=== PATIENT | female | born 1955 | race Caucasian/White ===

== ENCOUNTER 2018-06-18 09:18 | Inpatient (IN) ==
[2018-06-18 10:55] LABS: Baso % (Auto) 0.2 % (0.0-2.0); Eos % (Auto) 0.1 % (0.0-4.0); Hematocrit 39.4 % (35.0-46.0); Hemoglobin 13.2 gm/dL (11.6-15.3); Lymph # (Auto) 3.2 th/mm3 (1.0-4.8); Lymph % (Auto) 30.7 % (9.0-44.0); Mean Corpuscular HGB Conc 33.5 % (32.0-36.0); Mean Corpuscular Hemoglobin 28.9 pg (27.0-34.0); Mean Corpuscular Volume 86.3 fL (80.0-100.0); Mean Platelet Volume 7.1 fL (7.0-11.0); Mono # (Auto) 1.3 th/mm3 (0.0-0.9); Mono % (Auto) 12.1 % (0.0-8.0); Neut # (Auto) 5.9 th/mm3 (1.8-7.7); Neut % (Auto) 56.9 % (16.0-70.0); Platelet Count 238 th/mm3 (150-450); Red Blood Count 4.57 mil/mm3 (4.00-5.30); Red Cell Distribution Width 13.2 % (11.6-17.2); White Blood Count 10.4 th/mm3 (4.0-11.0)
[2018-06-18 11:11] LABS: Bacteria,Urine Rare /hpf; Bilirubin,Urine Negative (Negative); Clarity,Urine Cloudy (Clear); Color,Urine Amber (Yellw/Straw); Glucose,Urine (UA) 50 mg/dL (Negative); Leukocyte Esterase,Urine Negative (Negative); Mucus,Urine Few /lpf (Occasional); Nitrite,Urine Negative (Negative); Specific Gravity,Urine 1.031 (1.002-1.035); Squamous Epithelial Cell,Urine 8 /hpf (0-5); Urobilinogen,Urine 4 or Greater mg/dL (Less than 2)
[2018-06-18 11:12] LABS: Albumin 2.7 g/dL (3.4-5.0); Anion Gap 11 meq/L (5-15); Aspartate Aminotransferase 31 U/L (15-37); Blood Urea Nitrogen 23 mg/dL (7-18); Calcium 8.5 mg/dL (8.5-10.1); Carbon Dioxide 25.6 meq/L (21.0-32.0); Chloride 100 meq/L (98-107); Glomerular Filtration Rate 85 mL/min (>89); Glucose,Random 104 mg/dL (74-106); Lipase 65 U/L (73-393); Potassium 3.4 meq/L (3.5-5.1); Sodium 137 meq/L (136-145)
[2018-06-18 11:13] LABS: Alanine Aminotransferase 60 U/L (10-53)
[2018-06-18 11:15] LABS: Alkaline Phosphatase 118 U/L (45-117); Total Protein 7.8 g/dL (6.4-8.2)
--- NOTE | 2018-06-18 11:29 | ED ---
HPI General Chief Complaint: Abdominal Pain Stated Complaint: right side pain Time Seen by Provider: 06/18/18 10:08 Source: patient Mode of arrival: ambulatory Limitations: no limitations History of Present Illness HPI narrative: The patient is 62 years old. She denies a past medical history however does report history of recurrent urinary tract infections. Patient reports a history of follow-up with urogynecology and urology. She reports [address] scan was obtained due to chronic abdominal pain. The abdominal pain is generalized. She reports vomiting. She was seen here about a week ago by the undersigned. At that time her main priority was being able to work and she was discharged home with pain medication and antiemetics. This was after long discussion which included recent workups and evaluations not limited to urogynecology and outpatient imaging with blood work all of which revealed no acute injury. She returns today with severe pain is noted. She was unable to tolerate Percocet due to nausea and vomiting. Decreased appetite is reported. Bowel movements have been normal. MD complaint: Reports abdominal pain and flank pain Onset (ago): hour(s) Pain Consistency: constant Severity: severe Quality: Reports stabbing Relieving factors: nothing and medication (Pain medication cause vomiting) Exacerbating factors: eating, vomiting and movement Associated symptoms: Reports nausea and vomiting Related Data Home Medications Medication Instructions Recorded Confirmed No Known Home Medications 06/18/18 06/18/18 Allergies Allergy/AdvReac Type Severity Reaction Status Date / Time acetaminophen AdvReac Mild NAUSEA Verified 06/10/18 13:34 hydrocodone AdvReac Mild NAUSEA Verified 06/10/18 13:34 Review of Systems ROS: all other systems reviewed are negative [facility] Medical History Medical History UTI (urinary tract infection) (Acute) Herpes (Acute) History of hysterectomy (Acute) Surgical History Surgical History History of bladder surgery (Acute) Social History Social History Substance History: No History of Abuse Smoking Status: Former smoker How Often Do You Have a Drink Containing Alcohol: Never Recent Travel in [facility] within the Last 8 Weeks: No Recent Out of Country Travel within the Last 8 Weeks: No Immunization History Tetanus Immunization: Unsure Hx Influenza Vaccine This Season: No Exam Narrative Exam Narrative: GENERAL: 62-year-old female mild distress secondary to pain SKIN: Focused skin assessment warm/dry. HEAD: Atraumatic. Normocephalic. EYES: Pupils equal and round. No scleral icterus. No injection or drainage. ENT: No nasal bleeding or discharge. Mucous membranes pink and moist. NECK: Trachea midline. No JVD. CARDIOVASCULAR: Regular rate and rhythm. No murmur appreciated. RESPIRATORY: No accessory muscle use. Clear to auscultation. Breath sounds equal bilaterally. GASTROINTESTINAL: Soft. Nonspecific diffuse tenderness. MUSCULOSKELETAL: No obvious deformities. No clubbing. No cyanosis. No edema. NEUROLOGICAL: Awake and alert. No obvious cranial nerve deficits. Motor grossly within normal limits. Normal speech. PSYCHIATRIC: Appropriate mood and affect; insight and judgment normal. Course Initial Documented Vital Signs Temperature 97.9 F 06/18/18 09:40 Pulse Rate 89 06/18/18 09:40 Respiratory Rate 17 06/18/18 09:40 Blood Pressure 133/63 06/18/18 09:40 Pulse Oximetry 96 06/18/18 09:40 Last Documented Vital Signs Temperature 97.9 F 06/18/18 09:40 Pulse Rate 91 H 06/18/18 13:43 Respiratory Rate 16 06/18/18 13:43 Blood Pressure 145/65 H 06/18/18 13:43 Pulse Oximetry 96 06/18/18 13:43 Critical Care Time Critical Care Time: Yes Total Critical Care Time: 45 Attestation: Aggregate critical care time was 45 minutes. Time to perform other separately billable procedures was not included in the critical care time. My time did not include minutes spent treating any other patients simultaneously or on activities that did not directly contribute to the patient's treatment. The services I provided to this patient were to treat and/or prevent clinically significant deterioration that could result in: Intractable pain, disability, sepsis I provided critical care services requiring my management, as noted below: Chart data review, documentation time, medication orders and management, vital sign assessments/reviewing monitor data, ordering and reviewing lab tests, ordering and interpreting/reviewing x-rays and diagnostic studies, care of the patient and discussion of the patient with the admitting physicians. Medical Decision Making MDM Narrative Medical decision making narrative: Patient has required 3 doses of IV hydromorphone here for pain control. Workup today reveals a density in the right lung base concerning for pneumonia. There is a nonspecific pelvic density on CT. The patient reports having undergone hysterectomy with oophorectomy. Antibiotics started, Rocephin azithromycin. Blood cultures ordered. Admission for intractable pain and vomiting. Discussed with Dr. Arriaga for the [facility] Medical Screen Exam Complete: Yes Emergency Medical Condition: Yes Differential Diagnosis Differential Diagnosis: Constipation, Gastritis, Acute Cholecystitis, Biliary Colic, Pancreatitis, DUARTE, Hepatitis, Bowel Obstruction, Cystitis, Mesenteric Ischemia, AAA, Appendicitis, Renal Stone/Hydronephrosis, GERD, perforated viscous Medical Records Medical records reviewed: Yes I reviewed the patient's medical records. Lab Data Lab results reviewed: Yes I reviewed the patient's lab results. Lab results narrative: LFTs are unremarkable Urinalysis reveals trace hematuria Result diagrams: 06/18/18 10:25 06/18/18 10:25 Lab Results 06/18/18 06/18/18 06/18/18 Range/Units 10:25 10:25 10:30 WBC 10.4 (4.0-11.0) th/mm3 RBC 4.57 (4.00-5.30) mil/mm3 Hgb 13.2 (11.6-15.3) gm/dL Hct 39.4 (35.0-46.0) % MCV 86.3 (80.0-100.0) fL MCH 28.9 (27.0-34.0) pg MCHC 33.5 (32.0-36.0) % RDW 13.2 (11.6-17.2) % Plt Count 238 (150-450) th/mm3 MPV 7.1 (7.0-11.0) fL Neut % (Auto) 56.9 (16.0-70.0) % Lymph % (Auto) 30.7 (9.0-44.0) % Allen % (Auto) 12.1 H (0.0-8.0) % Eos % (Auto) 0.1 (0.0-4.0) % Baso % (Auto) 0.2 (0.0-2.0) % Neut # (Auto) 5.9 (1.8-7.7) th/mm3 Lymph # (Auto) 3.2 (1.0-4.8) th/mm3 Allen # (Auto) 1.3 H (0.0-0.9) th/mm3 Eos # (Auto) 0.0 (0.0-0.4) th/mm3 Baso # (Auto) 0.0 (0.0-0.2) th/mm3 WBC Differential . Differential Comment Auto diff final Sodium 137 (136-145) meq/L Potassium 3.4 L (3.5-5.1) meq/L Chloride 100 (98-107) meq/L Carbon Dioxide 25.6 (21.0-32.0) meq/L Anion Gap 11 (5-15) meq/L BUN 23 H (7-18) mg/dL Creatinine 0.70 (0.50-1.00) mg/dL Estimated GFR 85 L (>89) mL/min Random Glucose 104 (74-106) mg/dL Calcium 8.5 (8.5-10.1) mg/dL Total Bilirubin 0.7 (0.2-1.0) mg/dL AST 31 (15-37) U/L ALT 60 H (10-53) U/L Alkaline Phosphatase 118 H (45-117) U/L Total Protein 7.8 (6.4-8.2) g/dL Albumin 2.7 L (3.4-5.0) g/dL Lipase 65 L (73-393) U/L Urine Color Eli (Yellw/Straw) Urine Clarity Cloudy H (Clear) Urine pH 5.0 (5.0-8.5) Ur Specific Lindsey 1.031 (1.002-1.035) Urine Protein 100 H (Neg-Trace) mg/dL Urine Glucose (UA) 50 (Negative) mg/dL Urine Ketones 20 (Negative) mg/dL Urine Occult Blood Small H (Negative) Urine Nitrate Negative (Negative) Urine Bilirubin Negative (Negative) Urine Urobilinogen 4 or greater (Less than 2) mg/dL Ur Leukocyte Esterase Negative (Negative) Urine RBC 8 H (0-3) /hpf Urine WBC 1 (0-5) /hpf Ur Squamous Epith Cells 8 (0-5) /hpf Urine Bacteria Rare H (None) /hpf Urine Mucus Few H (Occasional) /lpf Micro UA Comment Culture not ind Ur Microscopic Review Not Reportable Urine Culture Comments Culture not ind Imaging Data Attestation: I personally reviewed and interpreted this imaging study as follows : My impression: There is a 2 cm round density in the region of the left pelvis of indeterminate significance. The right lung base reveals airspace disease. Radiologist's impression: Abdomen/Pelvis CT 06/18/18 12:21 CONCLUSION: 1. There is airspace consolidation in the right lower lobe with right pleural effusion. This could represent an infectious process in the appropriate clinical setting. Aspiration is another consideration. Changes at the left lung base may represent atelectasis or mild consolidation. 2. There is a 2.5 cm nodular structure in the left adnexa in the expected location of the left ovary. It is not certain if the left ovary remains present and patient reports prior surgical removal of the uterus. Therefore, on an outpatient elective basis, consider further characterization with transabdominal and transvaginal pelvis ultrasound. 3. Nonacute findings include small hiatal hernia, cholelithiasis, and moderate atherosclerotic disease. Discharge Plan Discharge Disposition Patient Disposition: 30 Still Patient Physicians Team ED Provider: Yoni Lawrence Attending Provider: Joshua Arriaga Discharge Interventions Interventions: Vital Signs Last Done: 06/18/18 13:43 Status ED Status: Admitted Observation Patient
[2018-06-18] MEDS ORDERED: HYDROmorphone PF Inj 2 MG/ML Vial IV.PUSH ONE ×4 (11:36→15:19)
[2018-06-18] MEDS ORDERED: Sod Chloride 0.9% Inj 1,000 ML IV.SIG SCH (11:45)
[2018-06-18] MEDS ORDERED: Sod Chloride 0.9% Inj 1,000 ML IV.SIG ONE (12:21)
--- NOTE | 2018-06-18 13:39 | CT ---
EXAM DATE: 06/18/2018 1:04 PM EDT AGE/SEX: 62 years / Female INDICATIONS: Right flank pain. CLINICAL DATA: This is the patient's initial encounter. Patient reports that signs and symptoms have been present for 2 weeks and indicates a pain score of 6/10. MEDICAL/SURGICAL HISTORY: None. Hysterectomy. Bladder sling surgery. RADIATION DOSE: 8.13 CTDI (mGy) COMPARISON: No prior exams available for comparison. TECHNIQUE: Multiple contiguous axial images were obtained through the abdomen. Images were obtained using multiple row detector helical technique. Using automated exposure control and adjustment of the mA and/or kV according to patient size, radiation dose was kept as low as reasonably achievable to o btain optimal diagnostic quality images. DICOM format image data is available electronically for rev iew and comparison. FINDINGS: Lower chest: There is airspace consolidation in the right lower lobe with small right pleural effusio n. There is atelectasis versus mild consolidation at the left lung base. Hepatobiliary: Liver density is normal on this noncontrast examination and no focal liver lesion is i dentified. There are high density stones in the gallbladder. No bile duct dilatation is present. Kidneys: No hydronephrosis, stone, or mass. There is a focal parenchymal scar in the posterior right mid kidney. Adrenal Glands: Within normal limits. Spleen: Within normal limits. Pancreas: No pancreas abnormality is identified. Vascular: The aorta is nonaneurysmal. Moderate atherosclerotic disease is present. Bowel/Mesentery: Small hiatal hernia is present. Small bowel and colon demonstrate no acute abnormali ty. There is sigmoid diverticulosis. The appendix is normal. There is no free air or free fluid. Abdominal Wall: Fat-containing umbilical hernia is present. Retroperitoneum: No lymphadenopathy. Bladder: No wall thickening or mass. Reproductive: There is a high density nodular structure in the left adnexa measuring up to 2.5 cm. It appears to connect with the gonadal vessels. Patient reports hysterectomy. Inguinal: No lymphadenopathy or hernia. Musculoskeletal: There are mild degenerative changes of the lumbar spine. CONCLUSION: 1. There is airspace consolidation in the right lower lobe with right pleural effusion. This could r epresent an infectious process in the appropriate clinical setting. Aspiration is another considerati on. Changes at the left lung base may represent atelectasis or mild consolidation. 2. There is a 2.5 cm nodular structure in the left adnexa in the expected location of the left ovary . It is not certain if the left ovary remains present and patient reports prior surgical removal of t he uterus. Therefore, on an outpatient elective basis, consider further characterization with transab dominal and transvaginal pelvis ultrasound. 3. Nonacute findings include small hiatal hernia, cholelithiasis, and moderate atherosclerotic disea se. Electronically signed by: Aj Vazquez MD 06/18/2018 1:37 PM EDT
[2018-06-18] MEDS ORDERED: MethylPREDNISolone Sod Succinate Inj 125 MG/2 ML Vial IV.PUSH ONE (15:17)
[2018-06-18] MEDS ORDERED: Azithromycin Inj 500 MG in Sodium Chlor 0.9% Inj 250 ML IV.SIG STA (15:17)
--- NOTE | 2018-06-18 15:50 | P.HP ---
<Tomasa Armstrong W - Last Filed: 06/18/18 19:28> History of Present Illness Primary Care Physician: Aj Mariee Chief Complaint: right sided abd pain History of Present Illness: This is a 62 year old female patient with a past medical history which includes recurrent UTIs. Patient was treated for UTI 05/28/18 with Macrobid x 7 days then followed up with her PCP 06/03 and was treated with cipro 500mg BID for 10 days. Patient presented to ER on 06/10/18 for abdominal pain diagnosed with dysuria discharged with Percocet and Zofran. Patient returned to the ER today with complaints of severe pain located in the right flank worse with taking a deep breath with associated N/V. Patient also endorses SOB, night sweats and decreased appetite for the past two weeks. CT scan completed and reveals: 1. There is airspace consolidation in the right lower lobe with right pleural effusion. This could represent an infectious process in the appropriate clinical setting. Aspiration is another consideration. Changes at the left lung base may represent atelectasis or mild consolidation. 2. There is a 2.5 cm nodular structure in the left adnexa in the expected location of the left ovary. It is not certain if the left ovary remains present and patient reports prior surgical removal of the uterus. Therefore, on an outpatient elective basis, consider further characterization with transabdominal and transvaginal pelvis ultrasound. 3. Nonacute findings include small hiatal hernia, cholelithiasis, and moderate atherosclerotic disease. Patient denies fevers or chills. 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 [employer] denies ETOH use former smoker quit 4 years ago, prior to that smoked 1 PPD since age 20 denies illicit drug use FMH: Mother at 52 secondary to lung cancer Father secondary to suicide also had colon cancer - Diagnosis (1) RLL pneumonia Review of Systems All other systems reviewed negative except as stated in HPI PMF - History History Provided By: Patient - Medical History Medical History: Medical History (Last Updated 06/18/18 @ 09:56 by Geo Stahl RN) UTI (urinary tract infection) Herpes History of hysterectomy - Surgical History Surgical History: Surgical History (Last Updated 06/10/18 @ 13:33 by Christie L Kelley, RN) History of bladder surgery - Tobacco History Smoking Status: Former smoker - Alcohol History How Often Do You Have a Drink Containing Alcohol: Never - Substance Use History Substance History: No History of Abuse - Travel History Recent Travel in the [place] Within the Last 8 Weeks: No Recent Travel Out of the Country Within the Last 8 Weeks: No - Immunization History Tetanus Immunization: Unsure Hx Influenza Vaccine This Season: No Medications and Allergies Allergies Allergy/AdvReac Type Severity Reaction Status Date / Time acetaminophen AdvReac Mild NAUSEA Verified 06/10/18 13:34 hydrocodone AdvReac Mild NAUSEA Verified 06/10/18 13:34 Home Medications Medication Instructions Recorded Confirmed Type No Known Home Medications 06/18/18 06/18/18 History Active Medications: Active Medications Sodium Chloride (Ns Inj) 1,000 mls @ 0 mls/hr IV.SIG BOLUS MARQUITA Last Infusion: 06/18/18 13:34 Dose: Infused Azithromycin 500 mg/ Sodium (Chloride) 250 mls @ 250 mls/hr IV.SIG STAT STA Stop: 06/18/18 16:16 Ceftriaxone Sodium 2,000 mg/ (Sodium Chloride) 100 mls @ 200 mls/hr IV.SIG STAT STA Stop: 06/18/18 15:46 Last Admin: 06/18/18 15:43 Dose: 200 mls/hr Exam Vital signs: Vital Signs 06/18/18 09:40 06/18/18 10:28 06/18/18 11:00 Temperature 97.9 F Pulse Rate 89 84 Respiratory Rate 17 17 Blood Pressure 133/63 135/62 Pulse Oximetry 96 97 97 06/18/18 11:50 06/18/18 13:43 Temperature Pulse Rate 88 91 H Respiratory Rate 16 16 Blood Pressure 136/61 145/65 H Pulse Oximetry 97 96 Intake & Output 06/17/18 06/18/18 06/18/18 18:59 06:59 18:59 Intake Total 1999 Balance 1999 Weight 72.575 kg Intake: IV 1999 NS Inj 1,000 ML @ Wide Open IV. 1999 SIG BOLUS ONE Rx#:[id number] Narrative: GENERAL: This is a well-nourished, well-developed patient, appears uncomfortable CARDIOVASCULAR: Regular rate and rhythm RESPIRATORY: diminished bilateral bases more diminished RLL GASTROINTESTINAL: Abdomen soft, non-tender, nondistended. hypoactive bowel sounds MUSCULOSKELETAL: Extremities without clubbing, cyanosis, or edema. NEURO: Alert & Oriented. Moves all ext x4 Results - Labs CBC & Chem 7: 06/18/18 10:25 06/18/18 10:25 Labs: Laboratory Results - last 24 hr 06/18/18 06/18/18 06/18/18 10:25 10:25 10:30 WBC 10.4 RBC 4.57 Hgb 13.2 Hct 39.4 MCV 86.3 MCH 28.9 MCHC 33.5 RDW 13.2 Plt Count 238 MPV 7.1 Neut % (Auto) 56.9 Lymph % (Auto) 30.7 [place] % (Auto) 12.1 H Eos % (Auto) 0.1 Baso % (Auto) 0.2 Neut # (Auto) 5.9 Lymph # (Auto) 3.2 [place] # (Auto) 1.3 H Eos # (Auto) 0.0 Baso # (Auto) 0.0 WBC Differential . Differential Comment Auto diff final Sodium 137 Potassium 3.4 L Chloride 100 Carbon Dioxide 25.6 Anion Gap 11 BUN 23 H Creatinine 0.70 Estimated GFR 85 L Random Glucose 104 Calcium 8.5 Total Bilirubin 0.7 AST 31 ALT 60 H Alkaline Phosphatase 118 H Total Protein 7.8 Albumin 2.7 L Lipase 65 L Urine Color Eli Urine Clarity Cloudy H Urine pH 5.0 Ur Specific [place] 1.031 Urine Protein 100 H Urine Glucose (UA) 50 Urine Ketones 20 Urine Occult Blood Small H Urine Nitrate Negative Urine Bilirubin Negative Urine Urobilinogen 4 or greater Ur Leukocyte Esterase Negative Urine RBC 8 H Urine WBC 1 Ur Squamous Epith Cells 8 Urine Bacteria Rare H Urine Mucus Few H Micro UA Comment Culture not ind Ur Microscopic Review Not Reportable Urine Culture Comments Culture not ind - Imaging Impressions Abdomen/Pelvis CT 06/18/18 12:21 CONCLUSION: 1. There is airspace consolidation in the right lower lobe with right pleural effusion. This could represent an infectious process in the appropriate clinical setting. Aspiration is another consideration. Changes at the left lung base may represent atelectasis or mild consolidation. 2. There is a 2.5 cm nodular structure in the left adnexa in the expected location of the left ovary. It is not certain if the left ovary remains present and patient reports prior surgical removal of the uterus. Therefore, on an outpatient elective basis, consider further characterization with transabdominal and transvaginal pelvis ultrasound. 3. Nonacute findings include small hiatal hernia, cholelithiasis, and moderate atherosclerotic disease. Caprini VTE Risk Assessment Caprini VTE Risk Assessment: No/Low Risk (score <= 1) Caprini Risk Assessment Model: Point Value = 1 Point Value = 2 Point Value = 3 Point Value = 5 Age 41-60 Minor surgery BMI > 25 kg/m2 Swollen legs Varicose veins or History of unexplained or recurrent spontaneous Oral contraceptives or hormone replacement Sepsis (< 1 month) Serious lung disease, including pneumonia (< 1 month) Abnormal pulmonary function Acute myocardial infarction Congestive heart failure (< 1 month) History of inflammatory bowel disease Medical patient at bed rest Age 61-74 Arthroscopic surgery Major open surgery (> 45 min) Laparoscopic surgery (> 45 min) Malignancy Confined to bed (> 72 hours) Immobilizing plaster cast Central venous access Age >= 75 History of VTE Family history of VTE Factor V Leiden Prothrombin [id number] Lupus anticoagulant Anticardiolipin antibodies Elevated serum homocysteine Heparin-induced thrombocytopenia Other congenital or acquired thrombophilia Stroke (< 1 month) Elective arthroplasty Hip, pelvis, or leg fracture Acute spinal cord injury (< 1 month) Prophylaxis Regimen: Total Risk Factor Score Risk Level Prophylaxis Regimen 0-1 Low Early ambulation 2 Moderate Order ONE of the following: *Sequential Compression Device (SCD) *Heparin 5000 units SQ BID 3-4 Higher Order ONE of the following medications: *Heparin 5000 units SQ TID *Enoxaparin/Lovenox 40 mg SQ daily (WT < 150 kg, CrCl > 30 mL/min) *Enoxaparin/Lovenox 30 mg SQ daily (WT < 150 kg, CrCl > 10-29 mL/min) *Enoxaparin/Lovenox 30 mg SQ BID (WT < 150 kg, CrCl > 30 mL/min) AND/OR *Sequential Compression Device (SCD) 5 or more Highest Order ONE of the following medications: *Heparin 5000 units SQ TID (Preferred with Epidurals) *Enoxaparin/Lovenox 40 mg SQ daily (WT < 150 kg, CrCl > 30 mL/min) *Enoxaparin/Lovenox 30 mg SQ daily (WT < 150 kg, CrCl > 10-29 mL/min) *Enoxaparin/Lovenox 30 mg SQ BID (WT < 150 kg, CrCl > 30 mL/min) AND *Sequential Compression Device (SCD) Assessment and Plan - Assessment (1) RLL pneumonia Code(s): J18.1 - Lobar pneumonia, unspecified organism Status: Acute Plan: This is a 62 year old female patient with a past medical history which includes recurrent UTIs. Patient was treated for UTI 05/28/18 with Macrobid x 7 days then followed up with her PCP 06/03 and was treated with cipro 500mg BID for 10 days. Patient presented to ER on 06/10/18 for abdominal pain diagnosed with dysuria discharged with Percocet and Zofran. Patient returned to the ER today with complaints of severe severe pain located in the right flank worse with taking a deep breath with associated N/V. Patient also endorses SOB, night sweats and decreased appetite for the past two weeks. CT scan completed and reveals: 1. There is airspace consolidation in the right lower lobe with right pleural effusion. This could represent an infectious process in the appropriate clinical setting. Aspiration is another consideration. Changes at the left lung base may represent atelectasis or mild consolidation. 2. There is a 2.5 cm nodular structure in the left adnexa in the expected location of the left ovary. It is not certain if the left ovary remains present and patient reports prior surgical removal of the uterus. Therefore, on an o utpatient elective basis, consider further characterization with transabdominal and transvaginal pelvis ultrasound. 3. Nonacute findings include small hiatal hernia, cholelithiasis, and moderate atherosclerotic disease. Patient denies fevers or chills. afebrile WBC 10.4 continue Rocephin and azithromycin Duonebs Q6H and PRN Urine Legionella and pneumococcal antigens Sputum culture UA shows no leucocyte esterase, high protein negative ketones DVT prophylaxis with SCDs <Joshua Arriaga - Last Filed: 06/26/18 17:22> History of Present Illness Primary Care Physician: Aj Mariee - Diagnosis (1) Pulmonary emboli (2) RLL pneumonia (3) DVT (deep venous thrombosis) (4) Adnexal mass Inpatient Certification: I certify that the inpatient services were ordered in accordance with Medicare regulations governing the order. This includes certification that hospital inpatient services are reasonable and necessary and in the case of services not specified as inpatient-only under 42 CFR 419.22(n), that they are appropriately provided as inpatient services in accordance to with the 2-midnight benchmark under 43 CFR 412.3(e) [facility] - Medical History Medical History: Medical History (Last Updated 06/18/18 @ 09:56 by Geo Stahl RN) UTI (urinary tract infection) Herpes History of hysterectomy - Surgical History Surgical History: Surgical History (Last Updated 06/10/18 @ 13:33 by Christie Kelley RN) History of bladder surgery Medications and Allergies Active Medications: Active Medications Acetaminophen (Tylenol) 650 mg PO Q4H PRN PRN Reason: Temp > 100.4 Last Admin: 06/23/18 16:30 Dose: 650 mg Al Hydroxide/Mg Hydroxide (Milk Of Magnesia Liq) 30 ml PO Q12H PRN PRN Reason: Mild Constipation Last Admin: 06/22/18 16:37 Dose: 30 ml Albuterol (Duoneb Neb (Prn)) 1 ampul NEB Q2HR NEB PRN PRN Reason: WHEEZING Albuterol (Duoneb Neb (Marquita)) 1 ampul NEB Q6HR WHILE AWAKE NEB [facility] Last Admin: 06/26/18 13:09 Dose: 1 ampul Chlorhexidine Gluconate (Peridex 0.12% Oral Kit) 15 ml OROPHARYNG BID@0800, 2000 [facility] Last Admin: 06/26/18 07:11 Dose: 15 ml Chlorhexidine Gluconate (Chlorhexidine 2% Cloth) 3 pack TOPICAL DAILY@0400 PRN PRN Reason: Extra cloth needed Stop: 06/29/18 03:59 Chlorhexidine Gluconate (Chlorhexidine 2% Cloth) 3 pack TOPICAL DAILY@0400 [facility] Stop: 06/29/18 03:59 Last Admin: 06/26/18 03:21 Dose: 3 pack Enoxaparin Sodium (Lovenox Inj) 75 mg SQ Q24H [facility] Last Admin: 06/26/18 10:34 Dose: 75 mg Famotidine (Pepcid) 10 mg PO BID [facility] Last Admin: 06/26/18 10:34 Dose: 10 mg Hydromorphone HCl (Dilaudid Pf Inj) 0.25 mg IV.PUSH Q4H PRN PRN Reason: PAIN 6-10 IF NO PO Last Admin: 06/26/18 14:58 Dose: 0.25 mg Ceftriaxone Sodium 1,000 mg/ (Sodium Chloride) 100 mls @ 200 mls/hr IV.SIG Q24H [facility] Stop: 06/27/18 12:59 Last Infusion: 06/26/18 14:18 Dose: Infused Miscellaneous Medication () 1 each OROPHARYNG 0000,0400,1200,1600 [facility] Last Admin: 06/26/18 16:56 Dose: 1 each Ondansetron HCl (Zofran Odt) 4 mg PO Q6H PRN PRN Reason: NAUSEA Last Admin: 06/22/18 16:01 Dose: 4 mg Ondansetron HCl (Zofran Inj) 4 mg IV.PUSH Q6H PRN PRN Reason: NAUSEA OR VOMITING Oxycodone HCl (Roxicodone) 5 mg PO Q4H PRN PRN Reason: pain 1-5 Last Admin: 06/26/18 14:58 Dose: 5 mg Senna/Docusate Sodium (Maria Luisa-Colace) 1 tab PO BID [facility] Last Admin: 06/26/18 10:35 Dose: 1 tab Sildenafil Citrate (Revatio) 10 mg PO Q8HR [facility] Last Admin: 06/26/18 14:58 Dose: 10 mg Sodium Chloride (Ns Flush) 2 ml IV.FLUSH BID [facility] Last Admin: 06/26/18 10:34 Dose: 2 ml Sodium Chloride (Ns Flush) 2 ml IV.FLUSH PRN PRN PRN Reason: FLUSH AFTER USING IV ACCESS Exam Vital signs: Vital Signs 06/25/18 17:25 06/25/18 17:30 06/25/18 17:35 Temperature Pulse Rate 110 H 109 H 114 H Respiratory Rate Blood Pressure 112/53 L 105/49 L 112/52 L Pulse Oximetry 95 95 94 L 06/25/18 17:40 06/25/18 17:45 06/25/18 17:50 Temperature Pulse Rate 113 H 118 H 119 H Respiratory Rate Blood Pressure 110/52 L 114/53 L 115/54 L Pulse Oximetry 95 94 L 95 06/25/18 17:55 06/25/18 18:00 06/25/18 18:05 Temperature Pulse Rate 118 H 116 H 120 H Respiratory Rate Blood Pressure 123/58 L 122/57 L 143/64 H Pulse Oximetry 95 95 94 L 06/25/18 18:10 06/25/18 18:15 06/25/18 18:20 Temperature Pulse Rate 124 H 123 H 120 H Respiratory Rate Blood Pressure 146/56 H 141/61 H 124/56 L Pulse Oximetry 94 L 92 L 95 06/25/18 18:25 06/25/18 18:30 06/25/18 18:35 Temperature Pulse Rate 120 H 121 H 120 H Respiratory Rate Blood Pressure 131/59 L 116/54 L 122/56 L Pulse Oximetry 95 94 L 95 06/25/18 18:40 06/25/18 18:45 06/25/18 18:50 Temperature Pulse Rate 119 H 118 H 120 H Respiratory Rate Blood Pressure 127/56 L 112/51 L 114/54 L Pulse Oximetry 95 95 96 06/25/18 18:55 06/25/18 19:00 06/25/18 19:05 Temperature Pulse Rate 121 H 117 H 116 H Respiratory Rate Blood Pressure 118/56 L 116/55 L 105/50 L Pulse Oximetry 94 L 95 95 06/25/18 19:10 06/25/18 19:15 06/25/18 19:20 Temperature Pulse Rate 120 H 116 H 114 H Respiratory Rate Blood Pressure 123/56 L 112/53 L 115/53 L Pulse Oximetry 95 95 96 06/25/18 19:26 06/25/18 19:30 06/25/18 20:00 Temperature 98.4 F Pulse Rate 117 H 116 H 114 H Respiratory Rate Blood Pressure 148/60 H 118/53 L 128/56 L Pulse Oximetry 96 96 95 06/25/18 20:25 06/25/18 21:00 06/25/18 22:00 Temperature Pulse Rate 117 H 116 H 119 H Respiratory Rate 26 H Blood Pressure 124/58 L 143/63 H Pulse Oximetry 95 93 L 06/25/18 22:13 06/25/18 23:00 06/25/18 23:59 Temperature Pulse Rate 110 H Respiratory Rate Blood Pressure 121/56 L Pulse Oximetry 95 96 96 06/26/18 00:00 06/26/18 01:00 06/26/18 01:01 Temperature Pulse Rate 111 H 119 H 117 H Respiratory Rate Blood Pressure 138/62 144/65 H 144/65 H Pulse Oximetry 96 93 L 95 06/26/18 02:00 06/26/18 03:00 06/26/18 04:00 Temperature Pulse Rate 107 H 103 H 106 H Respiratory Rate 24 Blood Pressure 141/62 H 123/58 L 140/63 Pulse Oximetry 96 95 96 06/26/18 04:44 06/26/18 05:00 06/26/18 06:00 Temperature Pulse Rate 110 H 108 H 109 H Respiratory Rate Blood Pressure 145/62 H 140/59 L 140/63 Pulse Oximetry 98 98 98 06/26/18 06:40 06/26/18 07:00 06/26/18 07:32 Temperature Pulse Rate 108 H 107 H Respiratory Rate 23 Blood Pressure 152/66 H Pulse Oximetry 95 97 06/26/18 08:00 06/26/18 08:01 06/26/18 09:00 Temperature 99.2 F Pulse Rate 108 H 104 H Respiratory Rate Blood Pressure 170/74 H 180/72 H Pulse Oximetry 96 97 06/26/18 09:59 06/26/18 10:00 06/26/18 11:00 Temperature Pulse Rate 104 H 102 H Respiratory Rate Blood Pressure 177/70 H 194/74 H Pulse Oximetry 98 97 96 06/26/18 11:23 06/26/18 12:00 06/26/18 13:00 Temperature Pulse Rate 108 H 108 H 101 H Respiratory Rate Blood Pressure 143/65 H 168/72 H 160/72 H Pulse Oximetry 93 L 95 97 06/26/18 13:09 06/26/18 14:00 06/26/18 15:00 Temperature Pulse Rate 98 H 100 H 99 H Respiratory Rate 20 Blood Pressure 160/72 H 150/65 H Pulse Oximetry 97 96 06/26/18 16:00 Temperature 99.1 F Pulse Rate 101 H Respiratory Rate Blood Pressure 163/72 H Pulse Oximetry 97 Intake & Output 06/25/18 06/26/18 06/26/18 18:59 06:59 18:59 Intake Total 820 / 820 336 / 336 Output Total 375 / 375 700 / 700 Balance 445 / 445 -700 / -700 336 / 336 Weight 73.4 kg Intake: IV 770 / 770 336 / 336 EPINEPHrine (1:1000) Inj 4 MG 220 / 220 In D5W Inj 246 ML @ 10 MCG/MIN 37.5 mls/hr IV.CONT TITRATE PRN Rx#:[id number] Versed Inj 50 mg In 50 ml @ 2 0 / 0 MG/HR 2 mls/hr IV.CONT TITRATE PRN Rx#:[id number] Primacor Inj 20 MG In NS Inj 80 100 / 100 ML @ 0.25 MCG/KG/MIN 5.62 mls/ hr IV.CONT .[id number] [facility] Rx#: [id number] Levophed Inj 16 MG In D5W Inj 30 / 30 234 ML @ 2 MCG/MIN 1.87 mls/hr IV.CONT TITRATE PRN Rx#: [id number] Pitressin Inj 40 UNIT In D5W 100 / 100 6 / 6 Inj 98 ML @ 0.04 UNITS/MIN 6 mls/hr IV.CONT TITRATE PRN Rx#: [id number] Rocephin Inj 1,000 MG In NS Inj 100 / 100 100 / 100 100 ML @ 200 mls/hr IV.SIG Q24H [facility] Rx#:[id number] fentaNYL 10 mcg/mL Premix Drip 250 / 250 2,500 mcg In 250 ml @ 50 MCG/HR 5 mls/hr IV.SIG TITRATE PRN Rx #:[id number] Flolan (30,000 ng/mL) Neb 62.5 100 / 100 100 / 100 ML In NS Inj 37.5 ML @ 5 mls/hr NEB Q8H [facility] Rx#:[id number] Oral 50 / 50 Output: Urine 45 / 45 Urine Amount (Catheter) 330 / 330 700 / 700 Indwelling Urethral Catheter 330 / 330 700 / 700 Other: # Bowel Movements 0 Results - Labs CBC & Chem 7: 06/26/18 04:45 06/26/18 04:45 Labs: Laboratory Results - last 24 hr 06/21/18 06/21/18 06/26/18 17:20 17:20 04:45 WBC 11.3 H D RBC 2.84 L Hgb 8.3 L Hct 24.4 L MCV 85.9 MCH 29.1 MCHC 33.9 RDW 13.5 Plt Count 138 L MPV 7.8 Neut % (Auto) 83.4 H Lymph % (Auto) 10.8 [place] % (Auto) 5.7 Eos % (Auto) 0.0 Baso % (Auto) 0.1 Neut # (Auto) 9.5 H Lymph # (Auto) 1.2 [place] # (Auto) 0.6 Eos # (Auto) 0.0 Baso # (Auto) 0.0 WBC Differential . Differential Comment Auto diff final PT INR Thrombin Time ND Lupus Anticoagulant LA PTT Screen 46 H dRVVT Screen 39 LA dRVVT Confirm ND dRVVT Mix ND Hexagonal Phase Confirm Negative Sodium Potassium Chloride Carbon Dioxide Anion Gap BUN Creatinine Estimated GFR Random Glucose Calcium Total Bilirubin AST ALT Alkaline Phosphatase Total Protein Albumin Beta-2-GPI IgG Ab <9 Beta-2-GPI IgA Ab <9 Beta-2-GPI IgM Ab <9 06/26/18 06/26/18 04:45 04:45 WBC RBC Hgb Hct MCV MCH MCHC RDW Plt Count MPV Neut % (Auto) Lymph % (Auto) [place] % (Auto) Eos % (Auto) Baso % (Auto) Neut # (Auto) Lymph # (Auto) [place] # (Auto) Eos # (Auto) Baso # (Auto) WBC Differential Differential Comment PT 10.0 INR 1.0 Thrombin Time Lupus Anticoagulant LA PTT Screen dRVVT Screen LA dRVVT Confirm dRVVT Mix Hexagonal Phase Confirm Sodium 140 Potassium 3.7 Chloride 102 Carbon Dioxide 28.6 Anion Gap 9 BUN 36 H Creatinine 1.79 H Estimated GFR 29 L Random Glucose 78 Calcium 7.9 L Total Bilirubin 0.5 AST 59 H ALT 163 H Alkaline Phosphatase 94 Total Protein 5.5 L Albumin 1.7 L Beta-2-GPI IgG Ab Beta-2-GPI IgA Ab Beta-2-GPI IgM Ab - Imaging Impressions Chest X-Ray 06/26/18 05:00 CONCLUSION: Interval extubation. Stable aeration. Caprini VTE Risk Assessment Caprini Risk Assessment Model: Point Value = 1 Point Value = 2 Point Value = 3 Point Value = 5 Age 41-60 Minor surgery BMI > 25 kg/m2 Swollen legs Varicose veins or History of unexplained or recurrent spontaneous Oral contraceptives or hormone replacement Sepsis (< 1 month) Serious lung disease, including pneumonia (< 1 month) Abnormal pulmonary function Acute myocardial infarction Congestive heart failure (< 1 month) History of inflammatory bowel disease Medical patient at bed rest Age 61-74 Arthroscopic surgery Major open surgery (> 45 min) Laparoscopic surgery (> 45 min) Malignancy Confined to bed (> 72 hours) Immobilizing plaster cast Central venous access Age >= 75 History of VTE Family history of VTE Factor V Leiden Prothrombin [id number] Lupus anticoagulant Anticardiolipin antibodies Elevated serum homocysteine Heparin-induced thrombocytopenia Other congenital or acquired thrombophilia Stroke (< 1 month) Elective arthroplasty Hip, pelvis, or leg fracture Acute spinal cord injury (< 1 month) Prophylaxis Regimen: Total Risk Factor Score Risk Level Prophylaxis Regimen 0-1 Low Early ambulation 2 Moderate Order ONE of the following: *Sequential Compression Device (SCD) *Heparin 5000 units SQ BID 3-4 Higher Order ONE of the following medications: *Heparin 5000 units SQ TID *Enoxaparin/Lovenox 40 mg SQ daily (WT < 150 kg, CrCl > 30 mL/min) *Enoxaparin/Lovenox 30 mg SQ daily (WT < 150 kg, CrCl > 10-29 mL/min) *Enoxaparin/Lovenox 30 mg SQ BID (WT < 150 kg, CrCl > 30 mL/min) AND/OR *Sequential Compression Device (SCD) 5 or more Highest Order ONE of the following medications: *Heparin 5000 units SQ TID (Preferred with Epidurals) *Enoxaparin/Lovenox 40 mg SQ daily (WT < 150 kg, CrCl > 30 mL/min) *Enoxaparin/Lovenox 30 mg SQ daily (WT < 150 kg, CrCl > 10-29 mL/min) *Enoxaparin/Lovenox 30 mg SQ BID (WT < 150 kg, CrCl > 30 mL/min) AND *Sequential Compression Device (SCD) Assessment and Plan - Assessment (1) Pulmonary emboli Code(s): I26.99 - Other pulmonary embolism without acute cor pulmonale Status : Acute (2) RLL pneumonia Code(s): J18.1 - Lobar pneumonia, unspecified organism Status: Acute (3) DVT (deep venous thrombosis) Code(s): I82.409 - Acute embolism and thrombosis of unspecified deep veins of unspecified lower extremity Status: Acute (4) Adnexal mass Code(s): N94.9 - Unspecified condition associated with female genital organs and menstrual cycle Status: Acute - Attending Attestation Patient examined. Assessment and plan formulated with Tomasa VALENCIA I agree with the above.
[2018-06-18] MEDS ORDERED: Azithromycin 250 MG Tablet PO ONE (16:00)
[2018-06-18] MEDS ORDERED: Promethazine 25 MG Supp RECTAL PRN (19:02)
[2018-06-18] MEDS ORDERED: Bisacodyl 10 MG Supp RECTAL ONE (19:03)
[2018-06-18] MEDS ORDERED: Sodium Chloride 0.9% 2 ML Flush PRN IV.FLUSH (19:17)
[2018-06-18] MEDS: Sod Chloride 0.9% Inj 1,000 ML IV.CONT SCH (19:32)
[2018-06-18] MEDS: Senna/Docusate Sodium 8.6/50 MG Tablet PO SCH (21:12)
[2018-06-18] MEDS: Sodium Chloride 0.9% 2 ML Flush BID IV.FLUSH SCH (21:13)
--- NOTE | 2018-06-18 21:26 | ECG ---
Date Performed: 06/18/2018 Time Performed: 21:03:37 PTAGE: 62 years EKG: Sinus rhythm NORMAL ECG No significant change from prior electrocardiogram. PREVIOUS TRACING : 01/30/2008 11.24 DOCTOR: Ventura Arredondo Interpretating Date/Time 06/18/2018 21:25:45
[2018-06-19 05:38] LABS: Baso % (Auto) 0.1 % (0.0-2.0); Hematocrit 33.6 % (35.0-46.0); Hemoglobin 11.4 gm/dL (11.6-15.3); Lymph # (Auto) 1.7 th/mm3 (1.0-4.8); Lymph % (Auto) 19.7 % (9.0-44.0); Mean Corpuscular HGB Conc 33.9 % (32.0-36.0); Mean Corpuscular Hemoglobin 29.1 pg (27.0-34.0); Mean Corpuscular Volume 85.8 fL (80.0-100.0); Mean Platelet Volume 7.2 fL (7.0-11.0); Mono # (Auto) 0.5 th/mm3 (0.0-0.9); Mono % (Auto) 5.7 % (0.0-8.0); Neut # (Auto) 6.4 th/mm3 (1.8-7.7); Neut % (Auto) 74.5 % (16.0-70.0); Platelet Count 212 th/mm3 (150-450); Red Blood Count 3.92 mil/mm3 (4.00-5.30); Red Cell Distribution Width 13.3 % (11.6-17.2); White Blood Count 8.6 th/mm3 (4.0-11.0)
[2018-06-19 06:02] LABS: Anion Gap 12 meq/L (5-15); Blood Urea Nitrogen 19 mg/dL (7-18); Calcium 7.9 mg/dL (8.5-10.1); Carbon Dioxide 22.8 meq/L (21.0-32.0); Chloride 107 meq/L (98-107); Glomerular Filtration Rate Greater Than 89 mL/min (>89); Glucose,Random 119 mg/dL (74-106); Potassium 3.7 meq/L (3.5-5.1); Sodium 142 meq/L (136-145)
[2018-06-19] MEDS: Sod Chloride 0.9% Inj 1,000 ML IV.CONT SCH (07:23)
--- NOTE | 2018-06-19 09:51 | XR ---
EXAM DATE: 06/19/2018 8:00 AM EDT AGE/SEX: 62 years / Female INDICATIONS: . Shortness of breath and cough. CLINICAL DATA: This is the patient's initial encounter. Patient reports that signs and symptoms have been present for 1 day and indicates a pain score of 0/10. MEDICAL/SURGICAL HISTORY: None. Hysterectomy. Bladder sling surgery. COMPARISON: No prior exams available for comparison. FINDINGS: Frontal and lateral views of the chest demonstrate a normal size cardiac silhouette. There are bibasi lar airspace opacities, right slightly greater than left with blunting of the right costophrenic sulc us. No pneumothorax is identified. The bones and soft tissues demonstrate no acute finding. CONCLUSION: There is bibasilar airspace consolidation with likely a small right pleural effusion. Given the distr ibution, aspiration should be a consideration. Electronically signed by: Aj Vazquez MD 06/19/2018 9:50 AM EDT
[2018-06-19] MEDS: Sodium Chloride 0.9% 2 ML Flush BID IV.FLUSH SCH ×2 (10:00→21:26)
[2018-06-19] MEDS: Azithromycin 250 MG Tablet PO SCH (10:00)
[2018-06-19] MEDS: Senna/Docusate Sodium 8.6/50 MG Tablet PO SCH ×2 (10:00→21:26)
--- NOTE | 2018-06-19 11:34 | P.PNIM ---
Subjective Interval history: Follow up RLL PNA Patient denies SOB Nausea resolved has tolerating clear liquids pain improving but still having pain on right side with deep breathing Physical Exam Vital signs: Vital Signs 06/18/18 11:50 06/18/18 13:43 06/18/18 17:20 Temperature 98.3 F Pulse Rate 88 91 H 76 Respiratory Rate 16 16 18 Blood Pressure 136/61 145/65 H 147/78 H Pulse Oximetry 97 96 94 L 06/18/18 19:49 06/18/18 20:00 06/18/18 20:01 Temperature 97.9 F Pulse Rate 73 79 72 Respiratory Rate 18 17 Blood Pressure 143/64 H Pulse Oximetry 97 93 L 06/18/18 23:47 06/19/18 00:00 06/19/18 04:00 Temperature 97.9 F 97.7 F Pulse Rate 72 55 L 61 Respiratory Rate 15 17 Blood Pressure 138/77 126/56 L Pulse Oximetry 95 93 L 06/19/18 07:00 06/19/18 08:00 Temperature 97.4 F L Pulse Rate 65 58 L Respiratory Rate 16 18 Blood Pressure 120/61 Pulse Oximetry 93 L 94 L Intake & Output 06/18/18 06/19/18 06/19/18 18:59 06:59 18:59 Intake Total 2099 / 2099 240 / 240 1000 / 1000 Output Total 750 / 750 Balance 2099 -510 / -510 1000 / 1000 Weight 73.4 kg 74 kg Intake: IV 2099 / 2099 1000 / 1000 NS Inj 1,000 ML @ 84 mls/hr IV. 1000 / 1000 CONT .[id number] MARU Rx#:[id number] NS Inj 1,000 ML @ Wide Open IV. 1999 SIG BOLUS ONE Rx#:[id number] Rocephin Inj 2,000 MG In NS Inj 100 / 100 100 ML @ 200 mls/hr IV.SIG STAT STA Rx#:[id number] Oral 240 / 240 Output: Urine 750 / 750 Other: Date of Last Bowel Movement 06/15/18 # Bowel Movements 1 Weight On Admission 73.4 kg Narrative: GENERAL: This is a well-nourished, well-developed patient, appears uncomfortable CARDIOVASCULAR: Regular rate and rhythm RESPIRATORY: diminished bilateral lower lobes GASTROINTESTINAL: Abdomen soft, non-tender, nondistended. bowel sounds MUSCULOSKELETAL: Extremities without clubbing, cyanosis, or edema. NEURO: Alert & Oriented. Moves all ext x4 - Urinary Catheter Management Indwelling Urethral Catheter Cath placed during this visit: yes, but has since been removed by the nurse Reason for continuing: Decision to DC catheter Insertion date: 06/23/18 Insertion time: Removal date: 06/26/18 Removal time: 07:45 Results - Labs CBC & Chem 7: 06/26/18 04:45 06/26/18 04:45 Laboratory Results - last 24 hr 06/19/18 06/19/18 04:33 04:33 WBC 8.6 RBC 3.92 L Hgb 11.4 L Hct 33.6 L MCV 85.8 MCH 29.1 MCHC 33.9 RDW 13.3 Plt Count 212 MPV 7.2 Neut % (Auto) 74.5 H Lymph % (Auto) 19.7 [place] % (Auto) 5.7 Eos % (Auto) 0.0 Baso % (Auto) 0.1 Neut # (Auto) 6.4 Lymph # (Auto) 1.7 [place] # (Auto) 0.5 Eos # (Auto) 0.0 Baso # (Auto) 0.0 WBC Differential . Differential Comment Auto diff final Sodium 142 Potassium 3.7 Chloride 107 Carbon Dioxide 22.8 Anion Gap 12 BUN 19 H Creatinine 0.42 L Estimated GFR Greater than 89 Random Glucose 119 H Calcium 7.9 L Microbiology 06/18/18 15:45 Blood - Peripheral Aerobic Blood Culture - Preliminary No growth in 1 day 06/18/18 15:45 Blood - Peripheral Anaerobic Blood Culture - Preliminary No growth in 1 day 06/18/18 15:30 Blood - Peripheral Aerobic Blood Culture - Preliminary No growth in 1 day 06/18/18 15:30 Blood - Peripheral Anaerobic Blood Culture - Preliminary No growth in 1 day 06/18/18 10:30 Urine - Clean Catch Urine Legionella Antigen - Final Presumptive negative for Legionella pneumophila serogroup 1 antigen in urine, suggesting no recent or recurrent infection. Infection due to Legionella cannot be ruled out since other serogroups and species may cause disease, antigen may not be present in urine in early infection, and the level of antigen present in the urine may be below the detection limit of the test. - Imaging Impressions Abdomen/Pelvis CT 06/18/18 12:21 CONCLUSION: 1. There is airspace consolidation in the right lower lobe with right pleural effusion. This could represent an infectious process in the appropriate clinical setting. Aspiration is another consideration. Changes at the left lung base may represent atelectasis or mild consolidation. 2. There is a 2.5 cm nodular structure in the left adnexa in the expected location of the left ovary. It is not certain if the left ovary remains present and patient reports prior surgical removal of the uterus. Therefore, on an outpatient elective basis, consider further characterization with transabdominal and transvaginal pelvis ultrasound. 3. Nonacute findings include small hiatal hernia, cholelithiasis, and moderate atherosclerotic disease. Chest X-Ray 06/19/18 08:00 CONCLUSION: There is bibasilar airspace consolidation with likely a small right pleural effusion. Given the distribution, aspiration should be a consideration. Assessment and Plan - Assessment (1) RLL pneumonia Code(s): J18.1 - Lobar pneumonia, unspecified organism Status: Acute Plan: This is a 62 year old female patient with a past medical history which includes recurrent UTIs. Patient was treated for UTI 05/28/18 with Macrobid x 7 days then followed up with her PCP 06/03 and was treated with cipro 500mg BID for 10 days. Patient presented to ER on 06/10/18 for abdominal pain diagnosed with dysuria discharged with Percocet and Zofran. Patient returned to the ER today with complaints of severe severe pain located in the right flank worse with taking a deep breath with associated N/V. Patient also endorses SOB, night sweats and decreased appetite for the past two weeks. CT scan completed and reveals: 1. There is airspace consolidation in the right lower lobe with right pleural effusion. This could represent an infectious process in the appropriate clinical setting. Aspiration is another consideration. Changes at the left lung base may represent atelectasis or mild consolidation. 2. There is a 2.5 cm nodular structure in the left adnexa in the expected location of the left ovary. It is not certain if the left ovary remains present and patient reports prior surgical removal of the uterus. Therefore, on an o utpatient elective basis, consider further characterization with transabdominal and transvaginal pelvis ultrasound. 3. Nonacute findings include small hiatal hernia, cholelithiasis, and moderate atherosclerotic disease. Patient denies fevers or chills. CXR 9/30 reviewed and reveals: There is bibasilar airspace consolidation with likely a small right pleural effusion. Given the distribution, aspiration should be a consideration. afebrile WBC 10.4 continue Rocephin and azithromycin Duonebs Q6H and PRN Urine Legionella negative pneumococcal antigens pending Sputum culture pending UA shows no leucocyte esterase, high protein negative ketones Give imaging concern for post-obstructive pna - consult pulmonology N/V improving will advance diet IS at bedside DVT prophylaxis with SCDs - Attending Attestation Patient examined. Assessment and plan formulated with Tomasa Armstrong PA-C. I agree with the above.
--- NOTE | 2018-06-19 19:42 | MB ---
cc: Jesus Barreto MD DATE: 06/19/2018 REQUESTING PHYSICIAN: Dr. Arriaga REASON FOR CONSULTATION: Pneumonia and pleural effusion. HISTORY OF PRESENT ILLNESS: Ms. Aquino is a pleasant 62-year-old female who has a history of recurrent UTI. The patient recently had a UTI, was seen by Dr. Mariee, was given ciprofloxacin. She did not get better, was seen in the emergency room. The patient was having recurrent UTI and she saw Dr. Hui and she had a CT scan of the abdomen done. The patient came to the hospital now because of her severe pain in the right flank area. She had low-grade fever. She has cough, no sputum production. No chest pain. No nausea or vomiting. The patient worked up in the hospital, she had a chest x-ray done, which shows she has bilateral basilar airspace disease with small right pleural effusion. She had a CT scan of the abdomen, which shows that she has airspace consolidation in the right lower lobe with right pleural effusion and 2.5 cm nodule at the left adnexal masses at suspected site of ovary. PAST MEDICAL HISTORY: Significant for recurrent UTI, bladder sling operation and hysterectomy. MEDICATIONS: 1. She is currently taking [place] 7.5/325. 2. Nebulizer treatment p.r.n. 3. Zithromax 500 mg. 4. Rocephin 1 g a daily. 5. Zofran p.r.n. ALLERGIES: SHE IS ALLERGIC TO HYDROCODONE AND ACETAMINOPHEN, though she is taking [place] while here. SOCIAL HISTORY: She has a history of smoking off and on 1 pack a day since her 20s. Does not drink. 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 FAMILY HISTORY: She is , lives with her sister. She has 2 children. REVIEW OF SYSTEMS: Her weight is stable. No DVT or pulmonary medication. No seizure, stroke. No weakness. PHYSICAL EXAMINATION: GENERAL: Reveals a markedly ____ female, not in any acute distress. VITAL SIGNS: Blood pressure 126/67, heart rate 63, respiration 18, temperature 97.6. HEENT: Pupils are equal and reactive to light. Oral mucosa normal. Nasal mucosa normal. NECK: Supple. JVP not raised. CHEST: She has decreased breath sounds at the right base. Few basilar rales. HEART: S1, S2 normal. ABDOMEN: Benign. EXTREMITIES: No edema. ASSESSMENT AND PLAN: 1. Right lung pneumonia, likely community acquired pneumonia. 2. Pleural effusion, recurrent UTI, history of hysterectomy. PLAN: Discussed with the patient, she is not producing any sputum. I will check urine legionella and pneumococcal antigen. Continue antibiotics. Check her cultures. Monitor her pleural effusion. If the pleural effusion gets worse, then we will consider thoracentesis. Further treatment will depend on the course in the hospital. MD SHERRY Bonilla/howard/dirk , 04:41 PM , 04:52 PM
[2018-06-20 05:01] LABS: Baso % (Auto) 0.2 % (0.0-2.0); Eos % (Auto) 0.4 % (0.0-4.0); Hematocrit 31.8 % (35.0-46.0); Hemoglobin 10.7 gm/dL (11.6-15.3); Lymph # (Auto) 1.8 th/mm3 (1.0-4.8); Mean Corpuscular HGB Conc 33.7 % (32.0-36.0); Mean Corpuscular Hemoglobin 29.4 pg (27.0-34.0); Mean Corpuscular Volume 87.2 fL (80.0-100.0); Mean Platelet Volume 7.1 fL (7.0-11.0); Mono # (Auto) 0.6 th/mm3 (0.0-0.9); Mono % (Auto) 8.3 % (0.0-8.0); Neut # (Auto) 4.4 th/mm3 (1.8-7.7); Neut % (Auto) 64.1 % (16.0-70.0); Platelet Count 246 th/mm3 (150-450); Red Blood Count 3.65 mil/mm3 (4.00-5.30); Red Cell Distribution Width 13.2 % (11.6-17.2); White Blood Count 6.8 th/mm3 (4.0-11.0)
[2018-06-20 05:37] LABS: Alanine Aminotransferase 31 U/L (10-53); Albumin 1.9 g/dL (3.4-5.0); Alkaline Phosphatase 77 U/L (45-117); Anion Gap 8 meq/L (5-15); Aspartate Aminotransferase 18 U/L (15-37); Blood Urea Nitrogen 20 mg/dL (7-18); Carbon Dioxide 27.1 meq/L (21.0-32.0); Chloride 111 meq/L (98-107); Glomerular Filtration Rate Greater Than 89 mL/min (>89); Glucose,Random 89 mg/dL (74-106); Potassium 3.6 meq/L (3.5-5.1); Sodium 146 meq/L (136-145); Total Protein 5.6 g/dL (6.4-8.2)
[2018-06-20] MEDS: Sodium Chloride 0.9% 2 ML Flush BID IV.FLUSH SCH ×2 (08:06→21:40)
[2018-06-20] MEDS: Azithromycin 250 MG Tablet PO SCH (08:08)
[2018-06-20] MEDS: Senna/Docusate Sodium 8.6/50 MG Tablet PO SCH ×2 (08:09→21:40)
--- NOTE | 2018-06-20 09:52 | XR ---
EXAM DATE: 06/20/2018 8:00 AM EDT AGE/SEX: 62 years / Female INDICATIONS: . Cough. CLINICAL DATA: This is the patient's initial encounter. Patient reports that signs and symptoms have been present for 1 day and indicates a pain score of 0/10. MEDICAL/SURGICAL HISTORY: None. None. COMPARISON: [facility] – [place], CHEST 2V PA&LAT, 06/19/2018. . FINDINGS: Stable chest with bibasilar parenchymal changes. No pneumothorax. No congestive failure. The heart and pulmonary vascularity are normal. The portion of the bony skeleton visualized is unrema rkable. CONCLUSION: Stable chest with bibasilar parenchymal changes and airspace disease worse on the right. Probable tra ce right pleural effusion. Electronically signed by: Mihir Miller MD 06/20/2018 9:51 AM EDT
--- NOTE | 2018-06-20 10:49 | P.PNIM ---
Subjective Interval history: pt coughing more. right chest/flank pains with inspiration. a little better today. Physical Exam Vital signs: Vital Signs 06/19/18 12:00 06/19/18 13:00 06/19/18 16:00 Temperature 97.6 F 97.5 F L Pulse Rate 67 68 88 Respiratory Rate 18 16 18 Blood Pressure 126/67 112/64 Pulse Oximetry 97 94 L 06/19/18 20:00 06/19/18 20:13 06/19/18 23:23 Temperature 97.7 F Pulse Rate 74 76 Respiratory Rate 16 16 18 Blood Pressure 112/53 L Pulse Oximetry 94 L 97 06/20/18 00:00 06/20/18 04:00 06/20/18 07:36 Temperature 97.8 F 97.9 F Pulse Rate 63 63 70 Respiratory Rate 14 18 20 Blood Pressure 104/62 123/58 L Pulse Oximetry 93 L 94 L 06/20/18 08:00 Temperature 97.7 F Pulse Rate 83 Respiratory Rate 20 Blood Pressure 131/59 L Pulse Oximetry 93 L Intake & Output 06/19/18 06/20/18 06/20/18 18:59 06:59 18:59 Intake Total 1820 / 1820 1240 / 1240 Output Total 1050 / 1050 Balance 1820 / 1820 190 / 190 Weight 77.1 kg Intake: IV 1100 / 1100 1000 / 1000 NS Inj 1,000 ML @ 84 mls/hr IV. 1000 / 1000 1000 / 1000 CONT .[id number] MARU Rx#:[id number] Rocephin Inj 1,000 MG In NS Inj 100 / 100 100 ML @ 200 mls/hr IV.SIG Q24H MARU Rx#:[id number] Oral 720 / 720 240 / 240 Output: Urine 1050 / 1050 Other: # Voids 3 Date of Last Bowel Movement 06/18/18 # Bowel Movements 0 heart reg lung basilar crackles abd s/nt/bs ext no edema Results - Labs CBC & Chem 7: 06/20/18 04:20 06/20/18 04:20 Laboratory Results - last 24 hr 06/20/18 06/20/18 04:20 04:20 WBC 6.8 RBC 3.65 L Hgb 10.7 L Hct 31.8 L MCV 87.2 MCH 29.4 MCHC 33.7 RDW 13.2 Plt Count 246 MPV 7.1 Neut % (Auto) 64.1 Lymph % (Auto) 27.0 [place] % (Auto) 8.3 H Eos % (Auto) 0.4 Baso % (Auto) 0.2 Neut # (Auto) 4.4 Lymph # (Auto) 1.8 [place] # (Auto) 0.6 Eos # (Auto) 0.0 Baso # (Auto) 0.0 WBC Differential . Differential Comment Auto diff final Sodium 146 H Potassium 3.6 Chloride 111 H Carbon Dioxide 27.1 Anion Gap 8 BUN 20 H Creatinine 0.56 Estimated GFR Greater than 89 Random Glucose 89 Calcium 8.0 L Total Bilirubin 0.2 AST 18 ALT 31 Alkaline Phosphatase 77 Total Protein 5.6 L D Albumin 1.9 L D Microbiology 06/19/18 20:20 Urine - Clean Catch Urine Streptococcus pneumoniae Antigen ( M - Final Presumptive negative for streptococcus pneumoniae antigen, suggesting no current or recent infection. Infection due to Streptococcus pneumoniae cannot be ruled out since the antigen present in the sample may be below the detection limit of the test. 06/19/18 20:20 Urine - Clean Catch Urine Legionella Antigen - Final Presumptive negative for Legionella pneumophila serogroup 1 antigen in urine, suggesting no recent or recurrent infection. Infection due to Legionella cannot be ruled out since other serogroups and species may cause disease, antigen may not be present in urine in early infection, and the level of antigen present in the urine may be below the detection limit of the test. 06/18/18 15:45 Blood - Peripheral Aerobic Blood Culture - Preliminary No growth in 1 day 06/18/18 15:45 Blood - Peripheral Anaerobic Blood Culture - Preliminary No growth in 1 day 06/18/18 15:30 Blood - Peripheral Aerobic Blood Culture - Preliminary No growth in 1 day 06/18/18 15:30 Blood - Peripheral Anaerobic Blood Culture - Preliminary No growth in 1 day 06/18/18 10:30 Urine - Clean Catch Urine Legionella Antigen - Final Presumptive negative for Legionella pneumophila serogroup 1 antigen in urine, suggesting no recent or recurrent infection. Infection due to Legionella cannot be ruled out since other serogroups and species may cause disease, antigen may not be present in urine in early infection, and the level of antigen present in the urine may be below the detection limit of the test. - Imaging Impressions Chest X-Ray 06/20/18 08:00 CONCLUSION: Stable chest with bibasilar parenchymal changes and airspace disease worse on the right. Probable trace right pleural effusion. Assessment and Plan - Assessment (1) RLL pneumonia Code(s): J18.1 - Status: Acute Plan: This is a 62 year old female patient with a past medical history which includes recurrent UTIs. Patient was treated for UTI 05/28/18 with Macrobid x 7 days then followed up with her PCP 06/03 and was treated with cipro 500mg BID for 10 days. Patient presented to ER on 06/10/18 for abdominal pain diagnosed with dysuria discharged with Percocet and Zofran. Patient returned to the ER today with complaints of severe severe pain located in the right flank worse with taking a deep breath with associated N/V. Patient also endorses SOB, night sweats and decreased appetite for the past two weeks. CT scan completed and reveals: 1. There is airspace consolidation in the right lower lobe with right pleural effusion. This could represent an infectious process in the appropriate clinical setting. Aspiration is another consideration. Changes at the left lung base may represent atelectasis or mild consolidation. 2. There is a 2.5 cm nodular structure in the left adnexa in the expected location of the left ovary. It is not certain if the left ovary remains present and patient reports prior surgical removal of the uterus. Therefore, on an o utpatient elective basis, consider further characterization with transabdominal and transvaginal pelvis ultrasound. 3. Nonacute findings include small hiatal hernia, cholelithiasis, and moderate atherosclerotic disease. Patient denies fevers or chills. CXR 06/19 reviewed and reveals: There is bibasilar airspace consolidation with likely a small right pleural effusion. Given the distribution, aspiration should be a consideration. afebrile WBC 10.4 continue Rocephin and azithromycin Duonebs Q6H and PRN Urine Legionella negative pneumococcal antigens pending Sputum culture pending Pulmonary following N/V improving will advance diet IS at bedside DVT prophylaxis with SCDs
[2018-06-20] MEDS: Acetaminophen 325 MG Tablet PO PRN (17:00)
--- NOTE | 2018-06-20 18:52 | P.PNPL ---
Subjective Interval history: 62 YOWF with Recurrent UTI, Rt pn, pl effusion Has low grade fever Cough but no sp denies sob Physical Exam Vital signs: Vital Signs 06/19/18 20:00 06/19/18 20:13 06/19/18 23:23 Temperature 97.7 F Pulse Rate 74 76 Respiratory Rate 16 16 18 Blood Pressure 112/53 L Pulse Oximetry 94 L 97 06/20/18 00:00 06/20/18 04:00 06/20/18 07:36 Temperature 97.8 F 97.9 F Pulse Rate 63 63 70 Respiratory Rate 14 18 20 Blood Pressure 104/62 123/58 L Pulse Oximetry 93 L 94 L 06/20/18 08:00 06/20/18 12:00 06/20/18 13:52 Temperature 97.7 F 99.9 F H Pulse Rate 77 81 80 Respiratory Rate 20 20 20 Blood Pressure 131/59 L 152/72 H Pulse Oximetry 93 L 95 06/20/18 16:00 Temperature 100.8 F H Pulse Rate 103 H Respiratory Rate 18 Blood Pressure 159/69 H Pulse Oximetry 94 L Intake & Output 06/19/18 06/20/18 06/20/18 18:59 06:59 18:59 Intake Total 1820 / 1820 1240 / 1240 820 / 820 Output Total 1050 / 1050 Balance 1820 / 1820 190 / 190 820 / 820 Weight 77.1 kg Intake: IV 1100 / 1100 1000 / 1000 100 / 100 NS Inj 1,000 ML @ 84 mls/hr IV. 1000 / 1000 1000 / 1000 CONT .[id number] MARU Rx#:[id number] Rocephin Inj 1,000 MG In NS Inj 100 / 100 100 / 100 100 ML @ 200 mls/hr IV.SIG Q24H MARU Rx#:[id number] Oral 720 / 720 240 / 240 720 / 720 Output: Urine 1050 / 1050 Other: # Voids 3 3 Date of Last Bowel Movement 06/18/18 # Bowel Movements 0 0 GENERAL: WBWNWF,NAD SKIN: Warm and dry. HEAD: Normocephalic. EYES: No scleral icterus. No injection or drainage. NECK: Supple, trachea midline. No JVD or lymphadenopathy. CARDIOVASCULAR: Regular rate and rhythm without murmurs, gallops, or rubs. RESPIRATORY: Breath sounds equal bilaterally. No accessory muscle use. GASTROINTESTINAL: Abdomen soft, non-tender, nondistended. MUSCULOSKELETAL: No cyanosis, or edema. BACK: Nontender without obvious deformity. No CVA tenderness. Assessment and Plan - Plan ASSESSMENT AND PLAN: 1. Right lung pneumonia, likely community acquired pneumonia. 2. Pleural effusion, 3. Recurrent UTI, 4. History of hysterectomy. PLAN: Cont Abx Monitor Pl effusion if effusion increases, will need TC Check cultures
[2018-06-21] MEDS: Senna/Docusate Sodium 8.6/50 MG Tablet PO SCH ×2 (09:54→20:58)
[2018-06-21] MEDS: Azithromycin 250 MG Tablet PO SCH (09:54)
--- NOTE | 2018-06-21 11:01 | P.PNIM ---
Subjective Interval history: breathing easier with less pain Physical Exam Vital signs: Vital Signs 06/20/18 12:00 06/20/18 13:52 06/20/18 16:00 Temperature 99.9 F H 100.8 F H Pulse Rate 81 80 103 H Respiratory Rate 20 20 18 Blood Pressure 152/72 H 159/69 H Pulse Oximetry 95 94 L 06/20/18 17:57 06/20/18 18:30 06/20/18 19:55 Temperature 99.4 F Pulse Rate 101 H 82 Respiratory Rate Blood Pressure Pulse Oximetry 06/20/18 20:00 06/20/18 20:30 06/20/18 23:59 Temperature 98.1 F Pulse Rate 82 97 H 77 Respiratory Rate 14 18 Blood Pressure 149/59 H Pulse Oximetry 98 95 06/21/18 00:00 06/21/18 04:00 06/21/18 08:00 Temperature 98.2 F 99.1 F 99.1 F Pulse Rate 87 85 80 Respiratory Rate 17 17 20 Blood Pressure 150/67 H 167/76 H 128/61 Pulse Oximetry 96 94 L 93 L 06/21/18 08:08 Temperature Pulse Rate 61 Respiratory Rate 15 Blood Pressure Pulse Oximetry 96 Intake & Output 06/20/18 06/21/18 06/21/18 18:59 06:59 18:59 Intake Total 820 / 820 480 / 480 Balance 820 / 820 480 / 480 Weight 75 kg Intake: IV 100 / 100 Rocephin Inj 1,000 MG In NS Inj 100 / 100 100 ML @ 200 mls/hr IV.SIG Q24H MARU Rx#:[id number] Oral 720 / 720 480 / 480 Other: # Voids 3 3 Date of Last Bowel Movement 06/18/18 # Bowel Movements 0 heart reg lung basilar crackles worse right lung base abd s/nt ext no edema Results - Labs CBC & Chem 7: 06/20/18 04:20 06/20/18 04:20 Microbiology 06/20/18 08:00 Sputum - Expectorated Sputum Gram Stain - Final 06/18/18 15:45 Blood - Peripheral Aerobic Blood Culture - Preliminary No growth in 2 days 06/18/18 15:45 Blood - Peripheral Anaerobic Blood Culture - Preliminary No growth in 2 days 06/18/18 15:30 Blood - Peripheral Aerobic Blood Culture - Preliminary No growth in 2 days 06/18/18 15:30 Blood - Peripheral Anaerobic Blood Culture - Preliminary No growth in 2 days 06/19/18 20:20 Urine - Clean Catch Urine Streptococcus pneumoniae Antigen ( M - Final Presumptive negative for streptococcus pneumoniae antigen, suggesting no current or recent infection. Infection due to Streptococcus pneumoniae cannot be ruled out since the antigen present in the sample may be below the detection limit of the test. 06/19/18 20:20 Urine - Clean Catch Urine Legionella Antigen - Final Presumptive negative for Legionella pneumophila serogroup 1 antigen in urine, suggesting no recent or recurrent infection. Infection due to Legionella cannot be ruled out since other serogroups and species may cause disease, antigen may not be present in urine in early infection, and the level of antigen present in the urine may be below the detection limit of the test. Assessment and Plan - Assessment (1) RLL pneumonia Code(s): J18.1 - Lobar pneumonia, unspecified organism Status: Acute Plan: This is a 62 year old female patient with a past medical history which includes recurrent UTIs. Patient was treated for UTI 05/28/18 with Macrobid x 7 days then followed up with her PCP 06/03 and was treated with cipro 500mg BID for 10 days. Patient presented to ER on 06/10/18 for abdominal pain diagnosed with dysuria discharged with Percocet and Zofran. Patient returned to the ER today with complaints of severe severe pain located in the right flank worse with taking a deep breath with associated N/V. Patient also endorses SOB, night sweats and decreased appetite for the past two weeks. CT scan completed and reveals: 1. There is airspace consolidation in the right lower lobe with right pleural effusion. This could represent an infectious process in the appropriate clinical setting. Aspiration is another consideration. Changes at the left lung base may represent atelectasis or mild consolidation. 2. There is a 2.5 cm nodular structure in the left adnexa in the expected location of the left ovary. It is not certain if the left ovary remains present and patient reports prior surgical removal of the uterus. Therefore, on an o utpatient elective basis, consider further characterization with transabdominal and transvaginal pelvis ultrasound. 3. Nonacute findings include small hiatal hernia, cholelithiasis, and moderate atherosclerotic disease. Patient denies fevers or chills. CXR 06/19 reviewed and reveals: There is bibasilar airspace consolidation with likely a small right pleural effusion. Given the distribution, aspiration should be a consideration. continue Rocephin and azithromycin Duonebs Q6H and PRN Urine Legionella/pneumococcal antigens negative Sputum culture pending Pulmonary following IS at bedside DVT prophylaxis with SCDs if doing well plan for dc home tomorrow on po abx and f/u pulmonary/repeat imaging outpt needs pcp/[place] blower f/u
--- NOTE | 2018-06-21 11:44 | P.PNPL ---
Subjective Interval history: 62 YOWF with Recurrent UTI, Rt pn, pl effusion Cough but no sp denies sob Ambulates No Fever Legionella and Pneumococcal ag negative Physical Exam Vital signs: Vital Signs 06/20/18 12:00 06/20/18 13:52 06/20/18 16:00 Temperature 99.9 F H 100.8 F H Pulse Rate 81 80 103 H Respiratory Rate 20 20 18 Blood Pressure 152/72 H 159/69 H Pulse Oximetry 95 94 L 06/20/18 17:57 06/20/18 18:30 06/20/18 19:55 Temperature 99.4 F Pulse Rate 101 H 82 Respiratory Rate Blood Pressure Pulse Oximetry 06/20/18 20:00 06/20/18 20:30 06/20/18 23:59 Temperature 98.1 F Pulse Rate 82 97 H 77 Respiratory Rate 14 18 Blood Pressure 149/59 H Pulse Oximetry 98 95 06/21/18 00:00 06/21/18 04:00 06/21/18 08:00 Temperature 98.2 F 99.1 F 99.1 F Pulse Rate 87 85 80 Respiratory Rate 17 17 20 Blood Pressure 150/67 H 167/76 H 128/61 Pulse Oximetry 96 94 L 93 L 06/21/18 08:08 06/21/18 11:29 Temperature Pulse Rate 61 60 Respiratory Rate 15 15 Blood Pressure Pulse Oximetry 96 Intake & Output 06/20/18 06/21/18 06/21/18 18:59 06:59 18:59 Intake Total 820 / 820 480 / 480 Balance 820 / 820 480 / 480 Weight 75 kg Intake: IV 100 / 100 Rocephin Inj 1,000 MG In NS Inj 100 / 100 100 ML @ 200 mls/hr IV.SIG Q24H MARU Rx#:[id number] Oral 720 / 720 480 / 480 Other: # Voids 3 3 Date of Last Bowel Movement 06/18/18 # Bowel Movements 0 GENERAL: WBWN NAD SKIN: Warm and dry. HEAD: Normocephalic. EYES: No scleral icterus. No injection or drainage. NECK: Supple, trachea midline. No JVD or lymphadenopathy. CARDIOVASCULAR: Regular rate and rhythm without murmurs, gallops, or rubs. RESPIRATORY: Breath sounds equal bilaterally. No accessory muscle use. GASTROINTESTINAL: Abdomen soft, non-tender, nondistended. MUSCULOSKELETAL: No cyanosis, or edema. BACK: Nontender without obvious deformity. No CVA tenderness. Assessment and Plan - Plan ASSESSMENT AND PLAN: 1. Right lung pneumonia, likely community acquired pneumonia. 2. Pleural effusion, 3. Recurrent UTI, 4. History of hysterectomy. PLAN: Cont Abx Monitor Pl effusion if effusion increases, will need TC Check cultures DC plans underway
[2018-06-21] MEDS: Sodium Chloride 0.9% 2 ML Flush BID IV.FLUSH SCH ×2 (12:12→20:59)
[2018-06-21] MEDS ORDERED: Enoxaparin Inj 40 MG/0.4 ML Syringe SQ SCH (14:00)
--- NOTE | 2018-06-21 15:11 | US ---
EXAM DATE: 06/21/2018 12:00 AM EDT AGE/SEX: 62 years / Female INDICATIONS: Right leg swelling. CLINICAL DATA: This is the patient's initial encounter. Patient reports that signs and symptoms have been present for 1 day and indicates a pain score of 2/10. MEDICAL/SURGICAL HISTORY: . Recurrent UTI. Right pleural effusion. Bladder prolapse. RLL pneumo josafat. Hysterectomy. Bladder sling surgery. COMPARISON: No prior exams available for comparison. TECHNIQUE: Venous ultrasound of both lower extremities was performed from the inguinal ligament to t he proximal calf. Real-time, color Doppler and spectral tracing, compression and augmentation techni ques were used. FINDINGS: The common femoral vein is patent. There is occlusive thrombus extending from the proximal superficial femoral vein to the popliteal vein as well as extending into the peroneal and posterior tibial veins. No venous waveform or augmentation response is present. The greater saphenous vein is p atent. CONCLUSION: 1. Positive deep venous thrombosis. Electronically signed by: Gerard Ruvalcaba MD 06/21/2018 3:10 PM EDT
--- NOTE | 2018-06-21 17:03 | CT ---
EXAM DATE: 06/21/2018 3:53 PM EDT AGE/SEX: 62 years / Female INDICATIONS: Chest pain. CLINICAL DATA: This is the patient's initial encounter. Patient reports that signs and symptoms have been present for 1 day and indicates a pain score of 3/10. MEDICAL/SURGICAL HISTORY: Herpes. Hysterectomy. RADIATION DOSE: 10.24 CTDI (mGy) COMPARISON: [facility], CHEST 2V AP&LAT, 06/20/2018. . TECHNIQUE: Volumetric scanning was performed using a multi-row detector CT scanner during bolus infu yoel of 65 ml Omnipaque 350 (iohexol) nonionic water-soluble contrast as a .. The data was post proc essed with a variety of visualization algorithms including full volume maximum intensity projection a nd sliding thin slab reformation. Using automated exposure control and adjustment of the mA and/or kV according to patient size, radiation dose was kept as low as reasonably achievable to obtain optimal diagnostic quality images. DICOM format image data is available electronically for review and ana paula rison. FINDINGS: Pulmonary Arteries: Extensive pulmonary embolism is present in the distal right main pulmonary arter y extending into the lower lobe pulmonary arteries. There is milder pulmonary emboli in multiple left lower lobe pulmonary arteries Lung: There are areas of consolidation in both lower lobes right greater than left. Effusion: There are small bilateral pleural effusions right greater than left. Mediastinum: No evidence of mediastinal or hilar adenopathy. Other: The axilla is unremarkable. CONCLUSION: 1. Extensive bilateral pulmonary emboli. 2. Consolidation in both lung bases right greater than left. 3. Small bilateral pleural effusions right greater than left. Electronically signed by: Gerard Ruvalcaba MD 06/21/2018 5:02 PM EDT
[2018-06-21] MEDS: Acetaminophen 325 MG Tablet PO PRN (17:04)
[2018-06-21 17:59] LABS: Activated Partial Thrombo Time 29.9 sec (24.3-30.1); Prothrombin Time 10.4 sec (9.8-11.6)
[2018-06-21] MEDS ORDERED: Enoxaparin Inj 80 MG/0.8 ML Syringe SQ ONE (21:00)
[2018-06-22] MEDS: Azithromycin 250 MG Tablet PO SCH (08:38)
[2018-06-22] MEDS: Senna/Docusate Sodium 8.6/50 MG Tablet PO SCH ×2 (08:38→20:13)
[2018-06-22] MEDS: Enoxaparin Inj 80 MG/0.8 ML Syringe SQ SCH ×2 (08:39→20:13)
[2018-06-22] MEDS: Sodium Chloride 0.9% 2 ML Flush BID IV.FLUSH SCH ×2 (08:39→20:13)
--- NOTE | 2018-06-22 09:38 | P.PNIM ---
Subjective Interval history: pt sitting in chair less cramping in right leg with ambulation. less pleuritic cp. Physical Exam Vital signs: Vital Signs 06/21/18 11:29 06/21/18 12:00 06/21/18 16:00 Temperature 97.6 F 100.9 F H Pulse Rate 60 126 H 111 H Respiratory Rate 15 20 18 Blood Pressure 135/62 150/70 H Pulse Oximetry 94 L 94 L 06/21/18 16:59 06/21/18 20:00 06/21/18 20:12 Temperature 100.5 F H 98.4 F Pulse Rate 85 75 Respiratory Rate 20 18 Blood Pressure 157/82 H Pulse Oximetry 93 L 06/22/18 00:00 06/22/18 02:48 06/22/18 04:00 Temperature 98.7 F 98.9 F Pulse Rate 81 81 83 Respiratory Rate 20 16 Blood Pressure 127/69 125/72 Pulse Oximetry 94 L 96 06/22/18 08:27 Temperature Pulse Rate 83 Respiratory Rate 18 Blood Pressure Pulse Oximetry Intake & Output 06/21/18 06/22/18 06/22/18 18:59 06:59 18:59 Intake Total 920 / 920 425 / 425 Balance 920 / 920 425 / 425 Weight 75.3 kg Intake: IV 100 / 100 Rocephin Inj 1,000 MG In NS Inj 100 / 100 100 ML @ 200 mls/hr IV.SIG Q24H MARU Rx#:[id number] Oral 720 / 720 425 / 425 Other 100 / 100 Other: # Voids 4 3 Date of Last Bowel Movement 06/18/18 heart reg lung basilar crackles right more than left abd s/nt ext right leg swelling less today. Results - Labs CBC & Chem 7: 06/20/18 04:20 06/20/18 04:20 Laboratory Results - last 24 hr 06/21/18 17:20 PT 10.4 INR 1.0 APTT 29.9 Microbiology 06/20/18 08:00 Sputum - Expectorated Sputum Gram Stain - Final 06/20/18 08:00 Sputum - Expectorated Sputum Sputum Culture - Preliminary Heavy growth normal respiratory loretta at 24 hours 06/18/18 15:45 Blood - Peripheral Aerobic Blood Culture - Preliminary No growth in 3 days 06/18/18 15:45 Blood - Peripheral Anaerobic Blood Culture - Preliminary No growth in 3 days 06/18/18 15:30 Blood - Peripheral Aerobic Blood Culture - Preliminary No growth in 3 days 06/18/18 15:30 Blood - Peripheral Anaerobic Blood Culture - Preliminary No growth in 3 days - Imaging Impressions Chest CTA 06/21/18 00:00 CONCLUSION: 1. Extensive bilateral pulmonary emboli. 2. Consolidation in both lung bases right greater than left. 3. Small bilateral pleural effusions right greater than left. Venous Doppler Study 06/21/18 00:00 CONCLUSION: 1. Positive deep venous thrombosis. Assessment and Plan - Assessment (1) Pulmonary emboli Code(s): I26.99 - Other pulmonary embolism without acute cor pulmonale Status : Acute Plan: This is a 62 year old female patient with a past medical history which includes recurrent UTIs. Patient was treated for UTI 05/28/18 with Macrobid x 7 days then followed up with her PCP 06/03 and was treated with cipro 500mg BID for 10 days. Patient presented to ER on 06/10/18 for abdominal pain diagnosed with dysuria discharged with Percocet and Zofran. Patient returned to the ER today with complaints of severe severe pain located in the right flank worse with taking a deep breath with associated N/V. Patient also endorses SOB, night sweats and decreased appetite for the past two weeks. CT scan completed and reveals: 1. There is airspace consolidation in the right lower lobe with right pleural effusion. This could represent an infectious process in the appropriate clinical setting. Aspiration is another consideration. Changes at the left lung base may represent atelectasis or mild consolidation. 2. There is a 2.5 cm nodular structure in the left adnexa in the expected location of the left ovary. It is not certain if the left ovary remains present and patient reports prior surgical removal of the uterus. Therefore, on an o utpatient elective basis, consider further characterization with transabdominal and transvaginal pelvis ultrasound. 3. Nonacute findings include small hiatal hernia, cholelithiasis, and moderate atherosclerotic disease. Patient denies fevers or chills. CXR 06/19 reviewed and reveals: There is bibasilar airspace consolidation with likely a small right pleural effusion. Given the distribution, aspiration should be a consideration. On 06/21 pt complained of cramping and swelling in right leg. acute right leg dvt acute bilateral pulmonary emboli right lung pneumonia. ?CAP vs pna secondary to splinting from PE pain left adnexal mass? pt had megan/bso 2007. ADDENDUM: 2008 op note suggests a 3-4cm left pelvic sidewall mass considered a "fibroid" convert iv to po abx cont lovenox. plan to convert to po eliquis or xarelto on dc hypercoag panel ordered and pending establish hematology consult and f/u ?left adnexal mass...transvag. u/s ordered. needs close f/u. Duonebs Q6H and PRN IS at bedside (2) RLL pneumonia Code(s): J18.1 - Lobar pneumonia, unspecified organism Status: Acute (3) DVT (deep venous thrombosis) Code(s): I82.409 - Acute embolism and thrombosis of unspecified deep veins of unspecified lower extremity Status: Acute (4) Adnexal mass Code(s): N94.9 - Unspecified condition associated with female genital organs and menstrual cycle Status: Acute
[2018-06-22] MEDS: levoFLOXacin 500 MG Tablet PO SCH (10:25)
--- NOTE | 2018-06-22 11:53 | US ---
EXAM DATE: 06/22/2018 12:00 AM EDT AGE/SEX: 62 years / Female INDICATIONS: Abnormal CT. CLINICAL DATA: This is the patient's initial encounter. Patient reports that signs and symptoms have been present for 1 day and indicates a pain score of 0/10. MEDICAL/SURGICAL HISTORY: . Herpes. Urinary tract infections. Hysterectomy. Bladder surgery. COMPARISON: [facility] [place]EL[place] W/O CONTRAST, 06/18/2018. . MEASUREMENTS: Uterus:__. Surgically absent. Endometrial Stripe:__N/A Right Ovary:__ . Surgically absent. Left Ovary:__ 2.8 x 1.8 x 2.3 cm FINDINGS: Uterus: Surgically absent. Endometrial Stripe: Surgically absent. Right Ovary: Surgically absent. Left Ovary: Ovary contains no mass or significant cystic lesion. Fluid: No free fluid. Other: small cystic area in the region of the cervix measuring 4 mm.. CONCLUSION: 1. Normal left ovary by ultrasound. 2. Small cystic area region of the cervix measuring 4 mm, nonspecific Electronically signed by: Mihir Miller MD 06/22/2018 11:51 AM EDT
--- NOTE | 2018-06-22 14:14 | MB ---
cc: Rox Finch MD, Edward B DO DATE: 06/22/2018 REFERRING PHYSICIAN: Dr. Arriaga. CHIEF COMPLAINT: Dr. Arriaga requests a consultation for Ms. Aquino regarding newly diagnosed extensive right lower extremity deep vein thromboses associated with bilateral pulmonary embolism. HISTORY OF PRESENT ILLNESS: Ms. Aquino is a 62-year-old woman with history of recurrent urinary tract infection. She has chronic stress incontinence. She has had no relief from a sling that was placed several years ago. She had a bad urinary tract infection about 3 weeks ago. She was treated apparently with antibiotic therapy. However, at the same time, she developed pain on the right side separate from her symptoms of the urinary tract infection, which was a low pelvic pain. She had progressive symptoms of the right-sided pain over the last 3 weeks. She has not returned to work. She thought it was related to her urinary tract infection. Finally, she came in to the emergency room with the right-sided abdominal/chest pain. Believing this is probably due to her recurrent urinary tract infection, a CT scan of the abdomen was performed first on 06/18/2018. The final pathology showed airspace consolidation in the right lower lobe with right pleural effusion. There is a 2.5 cm nodular structure in the left adnexa expected in position of the left ovary. She also has a small hiatal hernia, cholelithiasis, and moderate atherosclerotic disease. She was treated with a presumptive diagnosis of pneumonia. She was working with physical therapy and was found to have right leg more prominent than the left. For this reason, a CT angiogram was performed. CT angiogram showed extensive pulmonary embolism present in the distal right main pulmonary artery extending into the lower lobe pulmonary arteries. There are multiple left lobe pulmonary artery embolisms as well. There is consolidation in both lung bases, right greater than the left. There is bilateral pleural effusion. Doppler ultrasound of the lower extremity confirms an extensive right lower extremity deep vein thrombosis. The common femoral vein is patent. There is an occlusive thrombus extending from the proximal superficial femoral vein to the popliteal vein, extending into the peroneal and posterior tibial veins. In retrospect, she was in bed for the last 3 weeks, because of the right-sided pain. 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 She was on vaginal cream preparation, which I suspect contains estrogen. She does not recall the name. She has been on this vaginal cream for the last year. She is a longtime smoker, quit several years ago, and resumed last year, but quit again 4 months ago. She denies smoking at that time of her presentation. Abdominal pelvic ultrasound was performed, that confirmed the left lung mass that was thought to be an ovary. Review of the electronic medical record shows that she has had a hysterectomy and oophorectomy on 01/30/[address] Coco Gould. Two segments of fallopian tube without significant histopathologic abnormality. There was fragmented ovaries with small simple follicular cyst noted. In the operative report, during the surgery, Dr. Gould described a 3-4 cm mass in the broad ligament on the pelvic left sidewall, probable fibroid. This was left in place. This is probably what is visualized on the CT scan and ultrasound. REVIEW OF SYSTEMS: She feels better. She is less short of breath. She still has pain in the right side. She is tolerating the anticoagulant therapy well. She denies any changes in urine incontinence. She is wearing a diaper. She denies any headaches. No vision changes. No dysuria at present. PAST MEDICAL HISTORY: Recurrent urinary tract infection, bladder prolapse, herpes, extensive right lower extremity deep vein thromboses and bilateral pulmonary embolism, left pelvic fibroid. PAST SURGICAL HISTORY: Hysterectomy and bilateral salpingo-oophorectomy, bladder sling. 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 Denies any alcohol or illicit drug use. She quit smoking 4 years ago, resume some part of this year, and last cigarette approximately 4 months ago. She has a [id number] smoking history. FAMILY HISTORY: Significant for mother of lung cancer in her 50s. Father of suicide. ALLERGIES: ACETAMINOPHEN AND HYDROCODONE. CURRENT MEDICATIONS: Include Tylenol, [place], ilk of magnesia, DuoNeb, enoxaparin, Levaquin, ondansetron, Phenergan, Maria Luisa-Colace. PHYSICAL EXAMINATION: VITAL SIGNS: Temperature 98.9, heart rate 83, respiratory rate 18, blood pressure 125/72, saturation 96%. GENERAL: Ms. Aquino is a well-developed, well-nourished woman, who looks her stated age. HEENT: Her pupils are round, reactive to light and accommodation. Oropharynx is clear. NECK: Supple. LUNGS: Clear to auscultation. No wheezing. CARDIOVASCULAR: Reveals a normal rate and rhythm. ABDOMEN: Benign. EXTREMITIES: Lower extremity with asymmetry of right calf more prominent than the left. NEUROLOGIC: Nonfocal. LABORATORY DATA: Significant for a normocytic anemia with hemoglobin of 10.7. WBC and platelet count are normal. BUN is 20, creatinine 0.56. Albumin is decreased at 1.9. ASSESSMENT AND PLAN: Ms. Aquino is a 62-year-old woman with history of recurrent urinary tract infection and bladder prolapse. She has incontinence. She presents with a suspected urinary tract infection, presenting with right-sided chest pain, upper abdominal pain. She turned out to have an extensive right lower extremity deep vein thrombosis associated with bilateral pulmonary embolism. She was started on low molecular weight heparin, r Lovenox subcutaneously q. 12 hours. She is feeling better with improvement in her shortness of breath. She still has right lower extremity swelling. Hematology/oncology is consulted for the deep vein thrombosis. I discussed with Ms. Aquino that I suspect that her deep vein thrombosis and pulmonary embolism are provoked. She appears to be on a vaginal estrogen. She was advised to stop this. We will confirm the name of the product that she is using. She is referred back to her urologist for her options to treat her incontinence, and her repeated urinary tract infection. We will have to do this without vaginal estrogens. We discussed the goal to maintain anticoagulant therapy without interruption in the next 3-6 months. We discussed the risks and benefit of low-molecular weight heparin versus the new oral anticoagulant. I will keep her on the low-molecular weight heparin in the hospital and switch her to an oral anticoagulant when discharged. We discussed followup in clinic upon discharge. Her case was discussed with Dr. Quezada. Her vaginal ultrasound with the pelvic fibroid was discussed with radiology. She will follow up with Dr. Gould regarding the pelvic fibroid, which is known to her. Her questions were answered to her satisfaction. We will monitor her anemia. MD ADELA Choudhary/avinash , 01:36 PM , 01:54 PM
[2018-06-22] MEDS ORDERED: Influenza (Quadrivalent) Vaccine 0.5 ML Syringe IM ONE (17:00)
--- NOTE | 2018-06-22 18:08 | P.PNPL ---
Subjective Interval history: 62 YOWF with Recurrent UTI, Rt pn, pl effusion Cough but no sp denies sob Ambulates No Fever Legionella and Pneumococcal ag negative found to have Bilat PE and DVT On Lovenox has nausea Physical Exam Vital signs: Vital Signs 06/21/18 20:00 06/21/18 20:12 06/22/18 00:00 Temperature 98.4 F 98.7 F Pulse Rate 85 75 81 Respiratory Rate 20 18 20 Blood Pressure 157/82 H 127/69 Pulse Oximetry 93 L 94 L 06/22/18 02:48 06/22/18 04:00 06/22/18 08:00 Temperature 98.9 F 98.2 F Pulse Rate 81 83 86 Respiratory Rate 16 20 Blood Pressure 125/72 137/67 Pulse Oximetry 96 95 06/22/18 08:27 06/22/18 12:00 06/22/18 16:00 Temperature 98.3 F 98.4 F Pulse Rate 83 85 92 H Respiratory Rate 18 16 18 Blood Pressure 159/82 H 150/80 H Pulse Oximetry 94 L Intake & Output 06/21/18 06/22/18 06/22/18 18:59 06:59 18:59 Intake Total 920 / 920 425 / 425 Balance 920 / 920 425 / 425 Weight 75.3 kg Intake: IV 100 / 100 Rocephin Inj 1,000 MG In NS Inj 100 / 100 100 ML @ 200 mls/hr IV.SIG Q24H MARU Rx#:[id number] Oral 720 / 720 425 / 425 Other 100 / 100 Other: # Voids 4 3 Date of Last Bowel Movement 06/18/18 06/18/18 GENERAL: MBMN WF, NAD SKIN: Warm and dry. HEAD: Normocephalic. EYES: No scleral icterus. No injection or drainage. NECK: Supple, trachea midline. No JVD or lymphadenopathy. CARDIOVASCULAR: Regular rate and rhythm without murmurs, gallops, or rubs. RESPIRATORY: Breath sounds equal bilaterally. No accessory muscle use. GASTROINTESTINAL: Abdomen soft, non-tender, nondistended. MUSCULOSKELETAL: No cyanosis, or edema. BACK: Nontender without obvious deformity. No CVA tenderness. Assessment and Plan - Plan ASSESSMENT AND PLAN: 1. Right lung pneumonia, likely community acquired pneumonia. 2. Pleural effusion, 3. Recurrent UTI, 4. History of hysterectomy. 5. Bilat. PE 6. DVT PLAN: Cont Lovenox Will need transition to NOAC Cont Abx Monitor Pl effusion if effusion increases, will need TC
[2018-06-23] MEDS ORDERED: Midazolam Inj 5 MG/ML 1 ML Vial ONE (08:39)
[2018-06-23 08:52] LABS: ABG Base Excess -10.9 mmol/L (-2-2); ABG PCO2 54 mmHg (38-42); ABG PO2 57 mmHG (61-120)
[2018-06-23] MEDS ORDERED: Alteplase Inj 50 MG in Water for Inj, Sterile 50 ML IV.SIG ONE (09:00)
[2018-06-23 09:15] LABS: Hematocrit 33.6 % (35.0-46.0); Hemoglobin 10.6 gm/dL (11.6-15.3); Mean Corpuscular HGB Conc 31.4 % (32.0-36.0); Mean Corpuscular Hemoglobin 28.7 pg (27.0-34.0); Mean Corpuscular Volume 91.4 fL (80.0-100.0); Mean Platelet Volume 6.8 fL (7.0-11.0); Platelet Count 188 th/mm3 (150-450); Red Blood Count 3.68 mil/mm3 (4.00-5.30); Red Cell Distribution Width 13.8 % (11.6-17.2); White Blood Count 23.3 th/mm3 (4.0-11.0)
[2018-06-23] MEDS ORDERED: Sodium Bicarbonate 8.4% Inj 50 MEQ/50 ML Syringe ONE ×2 (09:15)
[2018-06-23] MEDS ORDERED: Potassium Chlor 20 mEq Premix 20 MEQ/100 ML PIGGYBACK IV.SIG PRN ×2 (09:22)
[2018-06-23] MEDS ORDERED: Potassium Phosphate 500 MG Soluble Tablet PO PRN ×2 (09:22)
[2018-06-23] MEDS ORDERED: Magnesium Sulfate Inj 4 GM in Sodium Chlor 0.9% Inj 92 ML IV.SIG PRN (09:22)
[2018-06-23] MEDS ORDERED: Magnesium Oxide 400 MG Tablet PO PRN (09:22)
[2018-06-23] MEDS ORDERED: Potassium Chlor 40 mEq Premix 40 MEQ/100 ML PIGGYBACK IV.SIG PRN (09:22)
[2018-06-23] MEDS ORDERED: Potassium Phosphate Inj 30 MMOL in Sodium Chlor 0.9% Inj 250 ML IV.SIG PRN (09:22)
[2018-06-23] MEDS ORDERED: Sodium Phosphate Inj 30 MMOL in Sodium Chlor 0.9% Inj 250 ML IV.SIG PRN (09:22)
[2018-06-23] MEDS ORDERED: Potassium Chloride 25 MEQ Effervescent Tablet PO PRN (09:22)
[2018-06-23] MEDS ORDERED: Magnesium Sulfate Inj 2 GM in Sodium Chlor 0.9% Inj 96 ML IV.SIG PRN (09:22)
[2018-06-23 09:31] LABS: Activated Partial Thrombo Time 29.4 sec (24.3-30.1); INR 1.1 Ratio
[2018-06-23 09:34] LABS: Albumin 1.6 g/dL (3.4-5.0); Calcium 7.2 mg/dL (8.5-10.1); Carbon Dioxide 17.7 meq/L (21.0-32.0); Magnesium 2.7 mg/dL (1.5-2.5); Phosphorus 7.2 mg/dL (2.5-4.9); Potassium 4.4 meq/L (3.5-5.1); Total Protein 5.5 g/dL (6.4-8.2)
--- NOTE | 2018-06-23 09:38 | P.CONCC ---
History of Present Illness Service: Critical Care Medicine Consult date: 06/23/18 Requesting Physician: Ra Quezada Reason for Consult: PEA arrest Primary Care Provider: Aj Mariee Chief Complaint: right sided abd pain History of Present Illness: 62yF was initially admitted for SOB and found to have large Right sided PE on . was on therapeutic lovenox. today found unresponsive in PEA arrest. [facility] called. I arrived at [facility]. see code sheet for details. patient intubated by Dr. Hill (see separate documentation). ROSC obtained after epi x 2. patient purposeful after ROSC. emergently transferred to ICU. on bedside critical care echo, severe acute RV failure with RVSP > 70 mmHg, + McConnel's Sign. obliterated LV cavity with bowing of the intraventricular septum into the LV. dilated IVC. severe TR. PEA arrest again in ICU requiring another round of epi and CPR. ROSC again. again purposeful movements after ROSC. emergent systemic TPA ordered since arrest, patient history, and echo consistent with acute massive PE. 50mg dose ordered instead of 100mg dose as patient has already been on 2 days of therapeutic Lovenox. epinephrine, vasopressin and norepinephrine started. patient persistently hypoxic: inhaled flolan added. due to emergent nature and post-arrest, no additional information is available from the patient. ROS unobtainable. remainder of history obtained from the medical record. Review of Systems unobtainable due to endotracheal tube, unobtainable due to mental condition, unobtainable due to mental status PMFSH - History History Provided By: Medical Record - Medical History Medical History: Medical History (Last Reviewed 06/23/18 @ 10:24 by Jim Fry MD) UTI (urinary tract infection) Herpes History of hysterectomy - Surgical History Surgical History: Surgical History (Last Reviewed 06/23/18 @ 10:25 by Jim Fry MD) History of bladder surgery - Family History Family History: Family History (Last Updated 06/23/18 @ 10:25 by Jim Fry MD) Other Unknown family medical history - Social History I have reviewed the patient's Social History: Yes - Tobacco History Second Hand Smoke Exposure: No Tobacco Use In Past 30 Days: No (quit 2012) Smoking Status: Former smoker Tobacco Type: Cigarettes - Alcohol History How Often Do You Have a Drink Containing Alcohol: Never - Substance Use History Substance History: No History of Abuse - Travel History Recent Travel in the [place] Within the Last 8 Weeks: No Recent Travel Out of the Country Within the Last 8 Weeks: No - Immunization History Tetanus Immunization: Unsure Hx Influenza Vaccine This Season: No Medications and Allergies Active Medications: Active Medications Acetaminophen (Tylenol) 650 mg PO Q4H PRN PRN Reason: Temp > 100.4 Last Admin: 06/21/18 17:04 Dose: 650 mg Al Hydroxide/Mg Hydroxide (Milk Of Magnute Liq) 30 ml PO Q12H PRN PRN Reason: Mild Constipation Last Admin: 06/22/18 16:37 Dose: 30 ml Albuterol (Duoneb Neb (Prn)) 1 ampul NEB Q2HR NEB PRN PRN Reason: WHEEZING Albuterol (Duoneb Neb (Marquita)) 1 ampul NEB Q6HR WHILE AWAKE NEB MARQUITA Last Admin: 06/23/18 09:32 Dose: Not Given Chlorhexidine Gluconate (Peridex 0.12% Oral Kit) 15 ml OROPHARYNG BID@0800, 2000 MARQUITA Chlorhexidine Gluconate (Chlorhexidine 2% Cloth) 3 pack TOPICAL DAILY@0400 PRN PRN Reason: Extra cloth needed Stop: 06/29/18 03:59 Chlorhexidine Gluconate (Chlorhexidine 2% Cloth) 3 pack TOPICAL DAILY@0400 MARQUITA Stop: 06/29/18 03:59 Sodium Chloride / Epoprostenol (Sodium 100 ml) 0 ml NEB CONT MARQUITA Enoxaparin Sodium (Lovenox Inj) 75 mg SQ Q12HR MARQUITA Last Admin: 06/22/18 20:13 Dose: 75 mg Famotidine (Pepcid) 20 mg PO BID MARQUITA Famotidine (Pepcid Pf Inj) 20 mg IV.PUSH Q12HR MARQUITA Famotidine (Pepcid Pf Inj) 20 mg IV.PUSH Q12HR MARQUITA Epinephrine HCl 4 mg/ Dextrose 250 mls @ 37.5 mls/hr IV.CONT TITRATE PRN; Protocol PRN Reason: See protocol Norepinephrine Bitartrate 16 (mg/ Dextrose) 250 mls @ 1.87 mls/hr IV.CONT TITRATE PRN; Protocol PRN Reason: See Protocol Midazolam HCl (Versed Inj) 50 mg in 50 mls @ 2 mls/hr IV.CONT TITRATE PRN; Protocol PRN Reason: Per Protocol Magnesium Sulfate 4 gm/ Sodium (Chloride) 100 mls @ 50 mls/hr IV.SIG UNSCH PRN PRN Reason: For Magnesium 0.9 - 1.1 mg/dL Magnesium Sulfate 2 gm/ Sodium (Chloride) 100 mls @ 50 mls/hr IV.SIG UNSCH PRN PRN Reason: For Magnesium 1.2 - 1.6 mg/dL Potassium Chloride (Kcl 40 Meq Premix Inj) 40 meq in 100 mls @ 25 mls/hr IV.SIG Q2H PRN PRN Reason: For Potassium 2.8 - 3.2 mEq/L Potassium Chloride (Kcl 20 Meq Premix Inj) 20 meq in 100 mls @ 50 mls/hr IV.SIG Q2H PRN PRN Reason: For Potassium 3.3 - 3.5 mEq/L Potassium Chloride (Kcl 40 Meq Premix Inj) 40 meq in 100 mls @ 25 mls/hr IV.SIG UNSCH PRN PRN Reason: For Potassium 3.3 - 3.5 mEq/L Potassium Chloride (Kcl 20 Meq Premix Inj) 20 meq in 100 mls @ 50 mls/hr IV.SIG Q2H PRN PRN Reason: For Potassium 2.8 - 3.2 mEq/L Potassium Phosphate 30 mmol/ (Sodium Chloride) 260 mls @ 42 mls/hr IV.SIG UNSCH PRN PRN Reason: SEE LABEL COMMENTS Sodium Phosphate 30 mmol/ (Sodium Chloride) 260 mls @ 42 mls/hr IV.SIG UNSCH PRN PRN Reason: For Phosphorus < 2.5 mg/dL Vasopressin 40 unit/ Dextrose 100 mls @ 6 mls/hr IV.CONT TITRATE PRN; Protocol PRN Reason: Per Protocol Influenza Virus Vaccine (Fluarix (Quad) Vaccine Inj) 0.5 ml IM .ONCE ONE Stop: 06/24/18 10:01 Levofloxacin (Levaquin) 500 mg PO Q24H MARQUITA Last Admin: 06/22/18 10:25 Dose: 500 mg Magnesium Oxide (Mag-Ox) 800 mg PO UNSCH PRN PRN Reason: For Magnesium 1.2 - 1.6 mg/dL Miscellaneous Medication () 1 each OROPHARYNG 0000,0400,1200,1600 MARQUITA Ondansetron HCl (Zofran Odt) 4 mg PO Q6H PRN PRN Reason: NAUSEA Last Admin: 06/22/18 16:01 Dose: 4 mg Ondansetron HCl (Zofran Inj) 4 mg IV.PUSH Q6H PRN PRN Reason: NAUSEA OR VOMITING Potassium Bicarb/Potassium Chloride (K-Lyte Cl Eff) 50 meq PO UNSCH PRN PRN Reason: For Potassium 3.3 - 3.5 mEq/L Potassium Phosphate (K-Phos Original) 2,000 mg PO Q4H PRN PRN Reason: Phosphorus Less Than 2.5 mg/dL Potassium Phosphate (K-Phos Original) 2,000 mg PO UNSCH PRN PRN Reason: SEE LABEL COMMENTS Senna/Docusate Sodium (Maria Luisa-Colace) 1 tab PO BID [facility] Last Admin: 06/22/18 20:13 Dose: 1 tab Sodium Chloride (Ns Flush) 2 ml IV.FLUSH BID [facility] Last Admin: 06/22/18 20:13 Dose: 2 ml Sodium Chloride (Ns Flush) 2 ml IV.FLUSH PRN PRN PRN Reason: FLUSH AFTER USING IV ACCESS Sodium Chloride (Ns Flush) 2 ml IV.FLUSH BID [facility] Sodium Chloride (Ns Flush) 2 ml IV.FLUSH PRN PRN PRN Reason: FLUSH AFTER USING IV ACCESS Terbutaline Sulfate (Brethine Inj) 1 mg SQ UNSCH PRN PRN Reason: For Extravasation Allergies Allergy/AdvReac Type Severity Reaction Status Date / Time acetaminophen AdvReac Mild NAUSEA Verified 06/10/18 13:34 hydrocodone AdvReac Mild NAUSEA Verified 06/10/18 13:34 Home Medications Medication Instructions Recorded Confirmed Type No Known Home Medications 06/18/18 06/18/18 History Physical Exam Vital signs: Vital Signs 06/22/18 12:00 06/22/18 16:00 06/22/18 20:00 Temperature 36.8 C 36.9 C 37.1 C Pulse Rate 85 92 H 75 Respiratory Rate 16 18 16 Blood Pressure 159/82 H 150/80 H 142/65 H Pulse Oximetry 94 L 06/22/18 23:45 06/23/18 00:00 06/23/18 04:00 Temperature 36.9 C 36.8 C Pulse Rate 88 73 75 Respiratory Rate 16 20 Blood Pressure 138/65 143/66 H Pulse Oximetry 97 94 L 06/23/18 08:23 06/23/18 08:35 06/23/18 08:45 Temperature Pulse Rate Respiratory Rate 27 H Blood Pressure Pulse Oximetry 95 100 100 Intake & Output 06/22/18 06/23/18 06/23/18 18:59 06:59 18:59 Intake Total 0 / 0 240 / 240 Balance 0 / 0 240 / 240 Weight 75 kg Intake: Oral 240 / 240 Other 0 / 0 Other: # Voids 3 Date of Last Bowel Movement 06/18/18 # Bowel Movements 0 0 Narrative: gen: middle-aged female, lying in bed, mottled, cyanotic, in extremis heent: nc. at. pupils are 4mm, reactive, equal. mucous membranes moist. neck: + JVD above the level of the mandible. trachea midline. chest: equal chest. spo2 81% on 100% fio2, peep 8. prvc. cv: tachycardic rate of 150s, regular rhythm. sinus. abd: soft, nontender, nondistended. no guarding. extr: mottled. cool and poorly perfused. poor cap refill. no edema. neuro: after ROSC obtained: patient purposeful x 4. Assessment and Plan - Assessment and Plan Plan: Assessment: 62yF with suspected massive Pulmonary embolism with associated cardiac arrest, cardiogenic shock, Cor Pulmonale. Very critically ill. continue supportive care for severe RV failure. may need to acutely lower pre-load with auto-transfusion/cell-saver to remove fluid acutely in the setting of acute RV failure. I have attempted to contact her sister, listed as NOK, but have been unable to reach her to update her. Neuro: Hypoxic Ischemic Encephalopathy - frequent neuro checks - versed for goal RASS -2 - head CT 24h after TPA Resp: Acute hypoxic and hypercarbic respiratory failure Massive Pulmonary Embolism - vent bundle - hob elevated - nebs - no weaning of mechanical ventilation until shock improves - wean fio2 for goal spo2 > 90% CV: s/p PEA Arrest Massive Pulmonary Embolism Cardiogenic Shock Cor Pulmonale Acute Right Ventricular failure - continue epi, vaso, levo - goal map > 65 mmHg - inhaled flolan - cvp monitoring - forced diuresis to maintain appropriate RV preload. - systemic TPA given 06/23. Renal: Acute kidney injury - secondary to shock - place yanez - trend Cr - close uop monitoring. FEN/GI: Acute intravascular volume overload Acute Liver Injury - NPO - place OGT to LIWS - ICU electrolyte protocol - forced diuresis - Acute liver injury is secondary to a combination of shock liver and congestive hepatopathy - daily cmp, mg, phos. - stat labs. heme/ID: Massive Pulmonary Embolism - s/p systemic TPA 06/23 - trend daily coags - watch cbc closely - watch for bleeding - keep on therapeutic lovenox - no infectious etiology suspected at this time: will send blood cultures to rule out concomitant bacteremia Endo: Hyperglycemia of critical illness - SSI Prophylaxis: GI: pepcid iv DVT: SCDs and therapeutic lovenox Lines: 06/23: right IJ TLC 06/23: right radial art line 06/23: Yanez Dispo: admit to ICU. very critically ill. Critical care time: 115 minutes, exclusive of separately billable procedures. remained at bedside for hemodynamic management.
[2018-06-23] MEDS ORDERED: Sodium Chlor 0.9% Inj 0 ML, Epoprostenol (30,000/mL) Neb 100 ML NEB SCH ×2 (09:45)
--- NOTE | 2018-06-23 10:01 | XR ---
EXAM DATE: 06/23/2018 9:14 AM EDT AGE/SEX: 62 years / Female INDICATIONS: Status post intubation and central line placement. CLINICAL DATA: This is the patient's initial encounter. Patient reports that signs and symptoms have been present for 1 day and indicates a pain score of Nonresponsive. MEDICAL/SURGICAL HISTORY: Non-responsive. Non-responsive. [place] [facility] [place]&L[place]. . FINDINGS: Endotracheal tube has its tip 1 cm above the ritu. A nasogastric tube has tip below diaphragm. Righ t internal jugular central line has its tip in superior vena cava. There is no pneumothorax. Bibasila r patchiness is noted consistent with probable pneumonia. Clinical correlation is recommended. CONCLUSION: 1. Bibasilar patchiness consistent with probable pneumonia. Clinical correlation is recommended. 2. Multiple tubes and lines are stable. Electronically signed by: Miky Corbin MD 06/23/2018 9:59 AM EDT
[2018-06-23] MEDS: Midazolam 50 MG/50 ML Inj 50 MG/50 ML BAG IV.CONT PRN (10:06)
[2018-06-23] MEDS: Sodium Chloride 0.9% 2 ML Flush BID IV.FLUSH SCH ×2 (10:08→21:40)
[2018-06-23] MEDS: Enoxaparin Inj 80 MG/0.8 ML Syringe SQ SCH ×2 (10:08→20:26)
[2018-06-23] MEDS: Senna/Docusate Sodium 8.6/50 MG Tablet PO SCH ×2 (10:10→20:28)
--- NOTE | 2018-06-23 10:42 | P.PCN ---
Date of procedure: 06/23/18 Pre-op diagnosis: Massive pulmonary embolism Post-op diagnosis: same Procedure: Procedure: Arterial Line Placement Right radial arterial line Diagnosis: Massive pulmonary embolism Indications: Need for beat to beat hemodynamic monitoring Consent: Emergent Description of the Procedure: The right wrist was prepped and draped sterilely. 1% lidocaine was used for local anesthesia. The pulse was located and a needle was advanced into the artery. A 20 gauge, 12 cm catheter was advanced into the artery using a modified Seldinger technique. The catheter was sutured to the skin and a sterile dressing was applied. The catheter was connected to a pressure transducer and an arterial waveform was noted. There were no immediate complications noted. There was minimal EBL. I personally performed the procedure.
--- NOTE | 2018-06-23 10:46 | ECHRPT ---
Indication: eval RV dysfunction CONCLUSIONS The left ventricular systolic function is hyperdynamic with an estimated ejection fraction in the ra nge of 65- 70%. Wall thickness is measured at the upper limits of normal. Normal left ventricular size. The right ventricle is ezxethamnm-gl-qslemego dilated. The right ventricular systoilc function is moderately decreased. The left atrial size is mildly dilated. The right atrial size is ptspjbxo-ry-rdrwhlao dilated. There is moderate tricuspid regurgitation. The estimated pulmonary arterial pressure is 69 mmHg. BP: / HR: 166 Rhythm: Other MEASUREMENTS (Male / Female) Normal Values Technical Quality:Fair 2D ECHO LV Diastolic Diameter PLAX 3.5 cm 4.2 - 5.9 / 3.9 - 5.3 cm LV Systolic Diameter PLAX 2.6 cm IVS Diastolic Thickness 1.0 cm 0.6 - 1.0 / 0.6 - 0.9 cm LVPW Diastolic Thickness 0.9 cm 0.6 - 1.0 / 0.6 - 0.9 cm LV Relative Wall Thickness 0.5 RV Internal Dim ED PLAX 3.7 cm LVOT Diameter 1.9 cm M-MODE Aortic Root Diameter MM 3.0 cm LA Systolic Diameter MM 2.8 cm LA Ao Ratio MM 0.9 AV Cusp Separation MM 1.6 cm DOPPLER AV Peak Velocity 130.0 cm/s AV Peak Gradient 6.8 mmHg LVOT Peak Velocity 83.9 cm/s LVOT Peak Gradient 2.8 mmHg AV Area Cont Eq pk 1.8 cm TR Peak Velocity 384.0 cm/s TR Peak Gradient 59.0 mmHg Right Atrial Pressure 10.0 mmHg Pulmonary Artery Systolic Pressu 69.0 mmHg Right Ventricular Systolic Press 69.0 mmHg FINDINGS LEFT VENTRICLE The left ventricular systolic function is hyperdynamic with an estimated ejection fraction in the ra nge of 65- 70%. Wall thickness is measured at the upper limits of normal. Normal left ventricular size. RIGHT VENTRICLE The right ventricle is pawwrzaojl-cx-admdagcq dilated. The right ventricular systoilc function is moderately decreased. LEFT ATRIUM The left atrial size is mildly dilated. RIGHT ATRIUM The right atrial size is nizkdjog-as-otdvsqwt dilated. ATRIAL SEPTUM Normal atrial septal thickness without atrial level shunting by limited color doppler interrogation. AORTA The aortic root and proximal ascending aorta are normal in size on limited imaging. MITRAL VALVE Structurally normal mitral valve. No mitral valve stenosis or regurgitation. AORTIC VALVE Trileaflet aortic valve. No aortic valve stenosis or regurgitation. TRICUSPID VALVE There is moderate tricuspid regurgitation. The estimated pulmonary arterial pressure is 69 mmHg. PULMONARY VALVE No pulmonary valve regurgitation or stenosis. VESSELS The inferior vena cava is normal in size. PERICARDIUM No pericardial effusion. Jeremías Cooley MD, FACC (Electronically Signed) Final Date:23 June 2018 10:45 Amended: 23 June 2018 13:18
--- NOTE | 2018-06-23 10:46 | P.PCN ---
Date of procedure: 06/23/18 Pre-op diagnosis: massive PE Post-op diagnosis: same Procedure: Central Line Procedure Note Right IJ 7 Kenyan 20 cm triple lumen catheter Diagnosis: Massive pulmonary embolism Indications: Need for central pressure monitoring Consent: Emergent Anesthesia: Versed IV Description of the Procedure: The patient was placed in the supine, mild- Trendelenburg position. The area was prepped and draped sterilely. A 19g needle was inserted under negative pressure aspiration and dark venous blood was obtained. The needle was transduced and a following column of dark venous blood was observed. A guidewire was inserted easily without resistance. A small incision was made using a #11 blade. Using a modified Seldinger technique , the dilator and 7 Kenyan, 20 cm catheter were advanced over the guidewire without resistance. All ports were aspirated and flushed, and had brisk blood return. The line was secured at the skin using 2-0 silk interrupted sutures. Suture was used instead of a non-suture StatLock due to the diaphoresis of the patient. A Biopatch and Transparent sterile dressing were applied. There were no immediate complications noted. There was minimal EBL. The patient tolerated the procedure well. A Chest x-ray has been ordered. I personally performed the procedure.
[2018-06-23] MEDS ORDERED: Sodium Bicarbonate 8.4% Inj 50 MEQ/50 ML Syringe IV.CONT ONE (11:12)
[2018-06-23] MEDS ORDERED: DOPamine 800 MG/500 ML Premix 800 MG/500 ML PLAST..BAG IV.CONT ONE (11:12)
[2018-06-23] MEDS ORDERED: Calcium Chloride Inj 1 GM/10 ML Syringe IV.CONT ONE (11:12)
[2018-06-23] MEDS ORDERED: Adenosine Inj 6 MG/2 ML Syringe IV.PUSH ONE (11:12)
[2018-06-23] MEDS ORDERED: Atropine Inj 1 MG/10 ML Syringe IV.PUSH ONE (11:12)
[2018-06-23] MEDS ORDERED: Heparin 10,000 UNITS/10 ML Vial (for IV use) ONE (11:20)
[2018-06-23] MEDS ORDERED: Heparin - SQ 10,000 UNITS/ML Vial ONE (11:21)
[2018-06-23 12:08] LABS: ABG Base Excess -1.9 mmol/L (-2-2); ABG PCO2 31 mmHg (38-42); ABG PO2 272 mmHG (61-120)
[2018-06-23 12:30] LABS: Atypical Lymphs 13 % (0-0); Lymphocytes 58 % (9-44); Monocytes 4 % (0-8); Myelocytes 1 % (0-0)
[2018-06-23 12:31] LABS: Platelet Estimate Normal (Normal); Platelet Morphology Normal (Normal); RBC Morphology Normal (Normal); Smudge Cells Present
--- NOTE | 2018-06-23 13:36 | P.PCN ---
Date of procedure: 06/23/18 Pre-op diagnosis: Acute respiratory failure Post-op diagnosis: same Procedure: DATE: 06/23/2018 PROCEDURE: Orotracheal intubation INDICATION: Acute respiratory failure DETAILS OF PROCEDURE The patient was placed in optimal position and preoxygenated with 100% FiO2 via bag valve mask. At the start oxygen saturation was unknown as unable to parts picker on pulse ox during respiratory failure code. The patient was administered no medication IV. I entered the oropharynx with a size 4 April laryngoscope blade and obtained a grade 3 view of the airway. On single attempt a size 8.0 cuffed endotracheal tube was passed through the vocal cords. Correct tube location was confirmed with end tidal CO2 detector and by auscultating over bilateral lung chavez. The endotracheal tube was secured with adhesive tape at a depth of 23 cm at the lips. The patient was connected to the ventilator. The patient tolerated the procedure well without any apparent complications. Oxygen saturations were maintained greater than 95% all times. STAT chest x-ray pending at time of dictation.
[2018-06-23] MEDS: Epoprostenol (30,000/mL) Neb 62.5 ML in Sodium Chlor 0.9% Inj 37.5 ML NEB SCH ×3 (14:00→23:11)
[2018-06-23] MEDS: Oral Hygiene Kit OROPHARYNG SCH ×2 (14:14→16:06)
[2018-06-23] MEDS: levoFLOXacin 500 MG Tablet PO SCH (16:07)
--- NOTE | 2018-06-23 16:23 | P.PNONC ---
Subjective Interval history: NORI MARAVILLA was called on patient earlier today She went into PEA on 2 separate occasions and was successfully resuscitated She is now intubated and sedated in the ICU Echocardiogram showed signs of right heart strain and TPA was ordered and given earlier today Objective Vital Signs/Intake & Output: Vital Signs 06/22/18 20:00 06/22/18 23:45 06/23/18 00:00 Temperature 98.7 F 98.5 F Pulse Rate 75 88 73 Respiratory Rate 16 16 Blood Pressure 142/65 H 138/65 Pulse Oximetry 97 06/23/18 04:00 06/23/18 08:23 06/23/18 08:35 Temperature 98.3 F Pulse Rate 75 Respiratory Rate 20 27 H Blood Pressure 143/66 H Pulse Oximetry 94 L 95 100 06/23/18 08:45 06/23/18 09:00 06/23/18 10:00 Temperature 98.0 F 98.0 F Pulse Rate 141 H 152 H Respiratory Rate 12 23 Blood Pressure 129/59 L 152/77 H Pulse Oximetry 100 80 L 100 06/23/18 11:00 06/23/18 12:00 06/23/18 12:12 Temperature 97.8 F Pulse Rate 145 H 153 H Respiratory Rate 20 22 32 H Blood Pressure 97/67 L 117/68 Pulse Oximetry 100 100 100 06/23/18 13:00 06/23/18 14:00 06/23/18 15:00 Temperature Pulse Rate 149 H 141 H 137 H Respiratory Rate 24 20 21 Blood Pressure 130/62 147/76 H 125/66 Pulse Oximetry 100 100 100 Intake & Output 06/22/18 06/23/18 06/23/18 18:59 06:59 18:59 Intake Total 0 / 0 240 / 240 1050 / 1050 Output Total 500 / 500 Balance 0 / 0 240 / 240 550 / 550 Weight 165 lb 5.547 oz Intake: IV 1050 / 1050 EPINEPHrine (1:1000) Inj 4 MG 750 / 750 In D5W Inj 246 ML @ 10 MCG/MIN 37.5 mls/hr IV.CONT TITRATE PRN Rx#:[id number] Levophed Inj 16 MG In D5W Inj 250 / 250 234 ML @ 2 MCG/MIN 1.87 mls/hr IV.CONT TITRATE PRN Rx#: [id number] Activase Inj 50 MG In Sterile 50 / 50 Water for Inj 50 ML @ Per Protocol IV.SIG ONCE ONE Rx#: [id number] Oral 240 / 240 Other 0 / 0 Output: Urine Amount (Catheter) 500 / 500 Indwelling Urethral Catheter 500 / 500 Other: # Voids 3 Date of Last Bowel Movement 06/18/18 # Bowel Movements 0 0 Result Diagrams: 06/23/18 11:10 06/23/18 08:50 Laboratory Results: Laboratory Results - last 24 hr 06/23/18 06/23/18 06/23/18 08:15 08:45 08:50 WBC RBC Hgb Hct MCV MCH MCHC RDW Plt Count MPV Prelim Diff (Auto) WBC Differential Seg Neuts % (Manual) Band Neuts % (Manual) Lymphocytes % (Manual) Atypical Lymphs % (Man) Monocytes % (Manual) Myelocytes % (Man) Abs Neuts (Manual) Differential Comment . Smudge Cells Platelet Estimate Platelet Morphology RBC Morphology PT INR APTT Fibrinogen Puncture Site Art line Patient Temperature 98.6 O2 Saturation 73 L* ABG pH 7.12 L* ABG pCO2 54 H* ABG pO2 57 L* ABG HCO3 17 L ABG O2 Content 10.9 L ABG Base Excess -10.9 L ABG Methemoglobin 1.4 Favio Test Hemoglobin 10.6 L Carboxyhemoglobin 0.3 O2 Delivery Device Ventilator Vent Setting See comments Inspired O2 100 Critical Value Yes Sodium Potassium Chloride Carbon Dioxide Anion Gap BUN Creatinine Estimated GFR POC Glucose 204 H Random Glucose Lactic Acid Calcium Prot Corrected Calcium Phosphorus Magnesium Total Bilirubin AST ALT Alkaline Phosphatase Troponin I Total Protein Albumin Nasal Screen MRSA (PCR) 06/23/18 06/23/18 06/23/18 08:50 08:50 09:25 WBC RBC Hgb Hct MCV MCH MCHC RDW Plt Count MPV Prelim Diff (Auto) WBC Differential Seg Neuts % (Manual) Band Neuts % (Manual) Lymphocytes % (Manual) Atypical Lymphs % (Man) Monocytes % (Manual) Myelocytes % (Man) Abs Neuts (Manual) Differential Comment Smudge Cells Platelet Estimate Platelet Morphology RBC Morphology PT INR APTT Fibrinogen Puncture Site Patient Temperature O2 Saturation ABG pH ABG pCO2 ABG pO2 ABG HCO3 ABG O2 Content ABG Base Excess ABG Methemoglobin Favio Test Hemoglobin Carboxyhemoglobin O2 Delivery Device Vent Setting Inspired O2 Critical Value Sodium 138 Potassium 4.4 Chloride 104 Carbon Dioxide 17.7 L Anion Gap 16 H BUN 14 Creatinine 1.08 H Estimated GFR 51 L POC Glucose Random Glucose 290 H Lactic Acid 9.2 H* Calcium 7.2 L* Prot Corrected Calcium 8.1 L Phosphorus 7.2 H Magnesium 2.7 H Total Bilirubin 0.4 AST 204 H ALT 184 H Alkaline Phosphatase 83 Troponin I Total Protein 5.5 L Albumin 1.6 L Nasal Screen MRSA (PCR) Not detected 06/23/18 06/23/18 06/23/18 11:10 11:10 11:10 WBC 23.3 H RBC 3.68 L Hgb 10.6 L Hct 33.6 L MCV 91.4 MCH 28.7 MCHC 31.4 L RDW 13.8 Plt Count 188 MPV 6.8 L Prelim Diff (Auto) Manual diff required WBC Differential Manual diff final Seg Neuts % (Manual) 20 Band Neuts % (Manual) 4 Lymphocytes % (Manual) 58 H Atypical Lymphs % (Man) 13 H Monocytes % (Manual) 4 Myelocytes % (Man) 1 H Abs Neuts (Manual) 5.8 Differential Comment Smudge Cells Present H Platelet Estimate Normal Platelet Morphology Normal RBC Morphology Normal PT 11.0 INR 1.1 APTT 29.4 Fibrinogen 347 Puncture Site Patient Temperature O2 Saturation ABG pH ABG pCO2 ABG pO2 ABG HCO3 ABG O2 Content ABG Base Excess ABG Methemoglobin Favio Test Hemoglobin Carboxyhemoglobin O2 Delivery Device Vent Setting Inspired O2 Critical Value Sodium Potassium Chloride Carbon Dioxide Anion Gap BUN Creatinine Estimated GFR POC Glucose Random Glucose Lactic Acid Calcium Prot Corrected Calcium Phosphorus Magnesium Total Bilirubin AST ALT Alkaline Phosphatase Troponin I 4.01 H* Total Protein Albumin Nasal Screen MRSA (PCR) 06/23/18 06/23/18 11:10 11:50 WBC RBC Hgb Hct MCV MCH MCHC RDW Plt Count MPV Prelim Diff (Auto) WBC Differential Seg Neuts % (Manual) Band Neuts % (Manual) Lymphocytes % (Manual) Atypical Lymphs % (Man) Monocytes % (Manual) Myelocytes % (Man) Abs Neuts (Manual) Differential Comment Smudge Cells Platelet Estimate Platelet Morphology RBC Morphology PT INR APTT Fibrinogen Puncture Site Art line Patient Temperature 98.6 O2 Saturation 97 ABG pH 7.46 H ABG pCO2 31 L ABG pO2 272 H ABG HCO3 21 L ABG O2 Content 14.7 ABG Base Excess -1.9 ABG Methemoglobin 1.6 Favio Test Present Hemoglobin 10.3 L Carboxyhemoglobin 0.6 O2 Delivery Device Ventilator Vent Setting Prvc/ac Inspired O2 60 Critical Value No Sodium Potassium Chloride Carbon Dioxide Anion Gap BUN Creatinine Estimated GFR POC Glucose Random Glucose Lactic Acid 9.5 H* Calcium Prot Corrected Calcium Phosphorus Magnesium Total Bilirubin AST ALT Alkaline Phosphatase Troponin I Total Protein Albumin Nasal Screen MRSA (PCR) Culture Results: Microbiology 06/20/18 08:00 Gram Stain - Final Sputum - Expectorated Sputum Sputum Culture - Final Beta Strep not group A 06/18/18 15:45 Aerobic Blood Culture - Final Blood - Peripheral No growth in 5 days Anaerobic Blood Culture - Final No growth in 5 days 06/18/18 15:30 Aerobic Blood Culture - Final Blood - Peripheral No growth in 5 days Anaerobic Blood Culture - Final No growth in 5 days Imaging Studies: Impressions Chest X-Ray 06/23/18 09:14 CONCLUSION: 1. Bibasilar patchiness consistent with probable pneumonia. Clinical correlation is recommended. 2. Multiple tubes and lines are stable. Medications: Active Medications Generic Name Dose Route Start Last Admin Trade Name Freq PRN Reason Stop Dose Admin Acetaminophen 650 mg 06/18/18 15:44 06/21/18 17:04 Tylenol PO 650 mg Q4H PRN Administration Temp > 100.4 Al Hydroxide/Mg Hydroxide 30 ml 06/18/18 15:44 06/22/18 16:37 Milk Of Magnesia Liq PO 30 ml Q12H PRN Administration Mild Constipation Albuterol 1 ampul 06/18/18 20:00 06/23/18 13:32 Duoneb Neb (Marquita) NEB Not Given Q6HR WHILE AWAKE NEB MARQUITA Enoxaparin Sodium 75 mg 06/22/18 09:00 06/23/18 10:08 Lovenox Inj SQ Not Given Q12HR MARQUITA Epinephrine HCl 4 mg/ Dextrose 250 mls @ 37.5 mls/hr 06/23/18 09:14 06/23/18 14:37 IV.CONT 20 mcg/min TITRATE PRN 75 mls/hr See protocol Administration Protocol 10 MCG/MIN Norepinephrine Bitartrate 16 250 mls @ 1.87 mls/hr 06/23/18 09:14 06/23/18 12 :42 mg/ Dextrose IV.CONT 20 mcg/min TITRATE PRN 18.75 mls/hr See Protocol Administration Protocol 2 MCG/MIN Midazolam HCl 50 mg in 50 mls @ 2 mls/hr 06/23/18 09:16 06/23/18 10:06 Versed Inj IV.CONT 2 mg/hr TITRATE PRN 2 mls/hr Per Protocol Administration Protocol 2 MG/HR Epoprostenol Sodium 62.5 ml/ 100 mls @ 5 mls/hr 06/23/18 12:00 06/23/18 14:00 Sodium Chloride NEB 5 mls/hr Q8H MARQUITA Administration Levofloxacin 500 mg 06/22/18 10:00 06/23/18 16:07 Levaquin PO 500 mg Q24H MARQUITA Administration Miscellaneous Medication 1 each 06/23/18 12:00 06/23/18 16:06 OROPHARYNG 1 each 0000,0400,1200,1600 MARQUITA Administration Ondansetron HCl 4 mg 06/18/18 15:51 06/22/18 16:01 Zofran Odt PO 4 mg Q6H PRN Administration NAUSEA Senna/Docusate Sodium 1 tab 06/18/18 21:00 06/23/18 10:10 Maria Luisa-Colace PO Not Given BID MARQUITA Sodium Chloride 2 ml 06/18/18 21:00 06/23/18 10:08 Ns Flush IV.FLUSH 2 ml BID MARQUITA Administration Sodium Chloride 2 ml 06/18/18 19:17 06/23/18 10:04 Ns Flush IV.FLUSH 2 ml PRN PRN Administration FLUSH AFTER USING IV ACCESS Objective Remarks: GENERAL: Acutely ill-appearing older female lying in bed sedated and intubated SKIN: Warm and dry. NECK: Supple, trachea midline. CARDIOVASCULAR: Tachycardic in the 130s RESPIRATORY: Mechanically ventilated. Lungs clear anteriorly. GASTROINTESTINAL: Abdomen soft, non-tender, nondistended. EXTREMITIES: No cyanosis. Left lower extremity edema. MUSCULOSKELETAL: Adequate muscle tone. NEUROLOGICAL: Sedated Assessment/Plan - Plan 62-year-old female admitted with shortness of breath found to have a pulmonary embolism. Hematology consulted for anticoagulation recommendations 1. Patient is currently critically ill in the intensive care unit. She is s/p Tpa earlier today. 2. Monitor for bleeding. Monitor CBC, coags. 3. Defer to critical care for acute anticoagulation after TPA. - Attending Statement The exam, history, and the medical decision-making described in the above note were completed with the assistance of the mid-level provider. I reviewed and agree with the findings presented. I attest that I had a [id number] encounter with the patient on the same day, and personally performed and documented my assessment and findings in the medical record. Decompensation despite anticoagulation. Events early AM noted, discussed with primary team. Continue support post thrombolytic therapy. Monitor for bleeding.
[2018-06-23] MEDS: Acetaminophen 325 MG Tablet PO PRN (16:30)
--- NOTE | 2018-06-23 17:01 | ECG ---
Date Performed: 06/23/2018 Time Performed: 09:51:40 PTAGE: 62 years EKG: SINUS TACHYCARDIA, POSSIBLE ATRIAL FLUTTER NONSPECIFIC ST & T-WAVE ABNORMALITY SINCE THE DE IOR TRACING THE EXTREME SINUS TACHYCARDIA WITH AN S1 Q3 PATTERN IS NEW. PULMONARY EMBOLUS AND OTHER C AUSES OF ACUTE RIGHT ATRIAL STRAIN SHOULD BE EXCLUDED CLINICALLY. THE DIFFUSE NONSPECFICIC ST T-WAVE CHANGES ARE ALSO NEW SINCE THE PRIOR TRACING. SIGNIFICANT SERIAL CHANGES HAVE OCCURED AND CLINICALLY CORRELATION WILL BE IMPORTANT. ABNORMAL RHYTHM ECG PREVIOUS TRACING : 06/18/2018 21.03 DOCTOR: Enid Ayala Interpretating Date/Time 06/23/2018 16:59:26
--- NOTE | 2018-06-23 17:19 | P.PNPL ---
Subjective Interval history: 62 YOWF with Recurrent UTI, Rt pn, pl effusion Legionella and Pneumococcal ag negative found to have Bilat PE and DVT Pt coded this AM Intubated On sedation Squeezes hand on command On Flolan, Epi, levophed and Vasopressin WBC increased On PRVC 50% Sisiter at BS Physical Exam Vital signs: Vital Signs 06/22/18 20:00 06/22/18 23:45 06/23/18 00:00 Temperature 98.7 F 98.5 F Pulse Rate 75 88 73 Respiratory Rate 16 16 Blood Pressure 142/65 H 138/65 Pulse Oximetry 97 06/23/18 04:00 06/23/18 08:23 06/23/18 08:35 Temperature 98.3 F Pulse Rate 75 Respiratory Rate 20 27 H Blood Pressure 143/66 H Pulse Oximetry 94 L 95 100 06/23/18 08:45 06/23/18 09:00 06/23/18 10:00 Temperature 98.0 F 98.0 F Pulse Rate 141 H 152 H Respiratory Rate 12 23 Blood Pressure 129/59 L 152/77 H Pulse Oximetry 100 80 L 100 06/23/18 11:00 06/23/18 12:00 06/23/18 12:12 Temperature 97.8 F Pulse Rate 145 H 153 H Respiratory Rate 20 22 32 H Blood Pressure 97/67 L 117/68 Pulse Oximetry 100 100 100 06/23/18 13:00 06/23/18 14:00 06/23/18 15:00 Temperature Pulse Rate 149 H 141 H 137 H Respiratory Rate 24 20 21 Blood Pressure 130/62 147/76 H 125/66 Pulse Oximetry 100 100 100 06/23/18 16:00 06/23/18 16:35 Temperature 103.3 F H Pulse Rate 133 H Respiratory Rate 20 23 Blood Pressure 114/66 Pulse Oximetry 100 100 Intake & Output 06/22/18 06/23/18 06/23/18 18:59 06:59 18:59 Intake Total 0 / 0 240 / 240 1050 / 1050 Output Total 600 / 600 Balance 0 / 0 240 / 240 450 / 450 Weight 75 kg Intake: IV 1050 / 1050 EPINEPHrine (1:1000) Inj 4 MG 750 / 750 In D5W Inj 246 ML @ 10 MCG/MIN 37.5 mls/hr IV.CONT TITRATE PRN Rx#:[id number] Levophed Inj 16 MG In D5W Inj 250 / 250 234 ML @ 2 MCG/MIN 1.87 mls/hr IV.CONT TITRATE PRN Rx#: [id number] Activase Inj 50 MG In Sterile 50 / 50 Water for Inj 50 ML @ Per Protocol IV.SIG ONCE ONE Rx#: [id number] Oral 240 / 240 Other 0 / 0 Output: Urine Amount (Catheter) 600 / 600 Indwelling Urethral Catheter 600 / 600 Other: # Voids 3 Date of Last Bowel Movement 06/18/18 # Bowel Movements 0 0 GENERAL: Eldely WF, intubated, sedated SKIN: Warm and dry. HEAD: Normocephalic. EYES: No scleral icterus. No injection or drainage. NECK: Supple, trachea midline. No JVD or lymphadenopathy. CARDIOVASCULAR: Regular rate and rhythm without murmurs, gallops, or rubs. RESPIRATORY: Breath sounds equal bilaterally. No accessory muscle use. GASTROINTESTINAL: Abdomen soft, non-tender, nondistended. MUSCULOSKELETAL: No cyanosis, or edema. BACK: Nontender without obvious deformity. No CVA tenderness. - Urinary Catheter Management Indwelling Urethral Catheter Cath placed during this visit: yes Reason for continuing: Hourly intake/output Insertion date: 06/23/18 Insertion time: 09:30 Assessment and Plan - Plan ASSESSMENT AND PLAN: 1. Right lung pneumonia, likely community acquired pneumonia. 2. Pleural effusion, 3. Recurrent UTI, 4. History of hysterectomy. 5. Bilat. PE 6. DVT 7.S/P cardiac arrest PLAN: Vent support, PRVC 50% Flolan Epi a, Vasopressin and Levophed to support pressure Cont Lovenox Cont Abx Monitor Pl effusion DW Pt's sister at BS
[2018-06-23] MEDS: Vasopressin Inj 40 UNIT in Dextrose 5% in Water Inj 98 ML IV.CONT PRN ×2 (19:00)
[2018-06-23] MEDS: Famotidine 20 MG Tablet PO SCH (20:27)
[2018-06-23] MEDS ORDERED: Famotidine 20 MG Tablet PO SCH (21:00)
[2018-06-23] MEDS ORDERED: Famotidine PF Inj 20 MG/2 ML Vial IV.PUSH SCH ×2 (21:00)
[2018-06-23] MEDS: Chlorhexidine 0.12% Oral Kit 15 ML UDC OROPHARYNG SCH (21:40)
[2018-06-23] MEDS: Famotidine PF Inj 20 MG/2 ML Vial IV.PUSH SCH (21:40)
[2018-06-24] MEDS: Midazolam 50 MG/50 ML Inj 50 MG/50 ML BAG IV.CONT PRN (00:13)
[2018-06-24] MEDS: Oral Hygiene Kit OROPHARYNG SCH ×4 (00:13→15:51)
[2018-06-24] MEDS: Vasopressin Inj 40 UNIT in Dextrose 5% in Water Inj 98 ML IV.CONT PRN ×6 (01:19→23:39)
[2018-06-24] MEDS: Milrinone Inj 20 MG in Sodium Chlor 0.9% Inj 80 ML IV.CONT SCH ×3 (02:11→14:59)
[2018-06-24] MEDS ORDERED: Chlorhexidine Gluconate 2% 1 Pack (2 Cloths) TOPICAL PRN (04:00)
[2018-06-24] MEDS: Chlorhexidine Gluconate 2% 1 Pack (2 Cloths) TOPICAL SCH (04:08)
[2018-06-24] MEDS: Epoprostenol (30,000/mL) Neb 62.5 ML in Sodium Chlor 0.9% Inj 37.5 ML NEB SCH ×3 (04:09→16:07)
[2018-06-24 04:49] LABS: Baso # (Auto) 0.1 th/mm3 (0.0-0.2); Baso % (Auto) 0.3 % (0.0-2.0); Eos % (Auto) 0.1 % (0.0-4.0); Hematocrit 37.6 % (35.0-46.0); Hemoglobin 12.3 gm/dL (11.6-15.3); Lymph # (Auto) 6.8 th/mm3 (1.0-4.8); Lymph % (Auto) 28.9 % (9.0-44.0); Mean Corpuscular HGB Conc 32.8 % (32.0-36.0); Mean Corpuscular Hemoglobin 28.3 pg (27.0-34.0); Mean Corpuscular Volume 86.3 fL (80.0-100.0); Mean Platelet Volume 7.4 fL (7.0-11.0); Mono # (Auto) 1.4 th/mm3 (0.0-0.9); Mono % (Auto) 5.9 % (0.0-8.0); Neut # (Auto) 15.2 th/mm3 (1.8-7.7); Neut % (Auto) 64.8 % (16.0-70.0); Platelet Count 156 th/mm3 (150-450); Red Blood Count 4.36 mil/mm3 (4.00-5.30); Red Cell Distribution Width 13.4 % (11.6-17.2); White Blood Count 23.6 th/mm3 (4.0-11.0)
[2018-06-24 05:03] LABS: INR 1.4 Ratio; Prothrombin Time 14.5 sec (9.8-11.6)
[2018-06-24 05:15] LABS: Albumin 1.8 g/dL (3.4-5.0); Carbon Dioxide 27.4 meq/L (21.0-32.0)
[2018-06-24] MEDS: Potassium Chlor 40 mEq Premix 40 MEQ/100 ML PIGGYBACK IV.SIG PRN ×2 (05:38→10:09)
--- NOTE | 2018-06-24 05:46 | XR ---
EXAM DATE: 06/24/2018 5:00 AM EDT AGE/SEX: 62 years / Female INDICATIONS: Shortness of breath CLINICAL DATA: This is the patient's subsequent encounter. Patient reports that signs and symptoms h ave been present for 4 - 6 days and indicates a pain score of Nonresponsive. MEDICAL/SURGICAL HISTORY: None. None. COMPARISON: [facility] – [place], CHEST 1V SINGLE AP, 06/23/2018. . FINDINGS: The cardiac silhouette is normal in transverse diameter. Endotracheal tube is at the ritu and could be retracted 2 to 3 cm. There is left lower lobe atelectasis versus pneumonia. Small bilateral pleur al effusions are identified. CONCLUSION: Left lower lobe atelectasis versus pneumonia. The findings have worsened when compared with the prior examination. Bilateral pleural effusions Endotracheal tube at the ritu as above Electronically signed by: Dirk Figueroa MD 06/24/2018 5:45 AM EDT
[2018-06-24] MEDS ORDERED: fentaNYL 10 mcg/mL Premix Drip 2,500 MCG/250 ML BAG IV.SIG PRN (08:26)
[2018-06-24] MEDS: Chlorhexidine 0.12% Oral Kit 15 ML UDC OROPHARYNG SCH ×2 (09:01→20:27)
[2018-06-24] MEDS: Senna/Docusate Sodium 8.6/50 MG Tablet PO SCH ×2 (09:02→20:08)
[2018-06-24] MEDS: Sodium Chloride 0.9% 2 ML Flush BID IV.FLUSH SCH ×2 (09:02→20:27)
[2018-06-24] MEDS: Famotidine 20 MG Tablet PO SCH ×2 (09:02→20:27)
[2018-06-24] MEDS: Famotidine PF Inj 20 MG/2 ML Vial IV.PUSH SCH ×2 (09:02→20:08)
[2018-06-24] MEDS: levoFLOXacin 500 MG Tablet PO SCH (09:30)
[2018-06-24] MEDS: Enoxaparin Inj 80 MG/0.8 ML Syringe SQ SCH ×2 (09:30→20:08)
[2018-06-24 09:55] LABS: Lymphocytes 24 % (9-44); Monocytes 12 % (0-8); Platelet Estimate Normal (Normal); Platelet Morphology Normal (Normal); Smudge Cells Present
[2018-06-24] MEDS ORDERED: Influenza (Quadrivalent) Vaccine 0.5 ML Syringe IM ONE (10:00)
[2018-06-24 12:20] LABS: Protein C Antigen 100 % (70-150)
--- NOTE | 2018-06-24 12:33 | P.PNCC ---
Subjective Subjective Remarks/Hospital Course: Hospital Course: 62yF was initially admitted for SOB and found to have large Right sided PE on . was on therapeutic lovenox. today found unresponsive in PEA arrest. [facility] called. I arrived at [facility] [employer]. see code sheet for details. patient intubated by Dr. Hill (see separate documentation). ROSC obtained after epi x 2. patient purposeful after ROSC. emergently transferred to ICU. on bedside critical care echo, severe acute RV failure with RVSP > 70 mmHg, + McConnel's Sign. obliterated LV cavity with bowing of the intraventricular septum into the LV. dilated IVC. severe TR. PEA arrest again in ICU requiring another round of epi and CPR. ROSC again. again purposeful movements after ROSC. emergent systemic TPA ordered since arrest, patient history, and echo consistent with acute massive PE. 50mg dose ordered instead of 100mg dose as patient has already been on 2 days of therapeutic Lovenox. epinephrine, vasopressin and norepinephrine started. patient persistently hypoxic: inhaled flolan added. due to emergent nature and post-arrest, no additional information is available from the patient. ROS unobtainable. remainder of history obtained from the medical record. Subjective: 06/24: remains in shock on vasopressors and inotropes. hypoxia improving. following commands. Objective Vital Signs / I&O: Vital Signs 06/23/18 13:00 06/23/18 14:00 06/23/18 15:00 Temperature Pulse Rate 149 H 141 H 137 H Respiratory Rate 24 20 21 Blood Pressure 130/62 147/76 H 125/66 Pulse Oximetry 100 100 100 06/23/18 16:00 06/23/18 16:35 06/23/18 17:00 Temperature 39.6 C H 38.4 C H Pulse Rate 133 H 122 H Respiratory Rate 20 23 21 Blood Pressure 114/66 108/62 Pulse Oximetry 100 100 100 06/23/18 18:00 06/23/18 19:00 06/23/18 19:55 Temperature 37.2 C 36.6 C Pulse Rate 116 H 107 H Respiratory Rate 20 20 20 Blood Pressure 102/60 106/60 Pulse Oximetry 100 100 100 06/23/18 20:00 06/23/18 21:00 06/23/18 21:08 Temperature Pulse Rate 104 H 101 H 100 H Respiratory Rate 20 20 Blood Pressure 108/60 114/62 Pulse Oximetry 100 100 100 06/23/18 21:13 06/23/18 22:00 06/23/18 23:00 Temperature Pulse Rate 109 H 101 H 95 H Respiratory Rate 20 20 Blood Pressure 127/58 L Pulse Oximetry 100 100 06/23/18 23:52 06/24/18 00:00 06/24/18 01:00 Temperature 36.4 C Pulse Rate 97 H 97 H Respiratory Rate 23 Blood Pressure 125/62 104/57 L Pulse Oximetry 100 96 98 06/24/18 02:00 06/24/18 03:00 06/24/18 04:00 Temperature Pulse Rate 97 H 103 H 115 H Respiratory Rate Blood Pressure 110/58 L 107/56 L 108/55 L Pulse Oximetry 98 97 98 06/24/18 04:02 06/24/18 04:56 06/24/18 05:00 Temperature 37.6 C Pulse Rate 113 H 111 H Respiratory Rate 20 Blood Pressure 108/55 L 103/54 L Pulse Oximetry 98 98 99 06/24/18 06:00 06/24/18 07:00 06/24/18 07:42 Temperature 36.8 C Pulse Rate 110 H 117 H 113 H Respiratory Rate 20 22 Blood Pressure 113/56 L 112/54 L Pulse Oximetry 99 06/24/18 08:00 06/24/18 09:00 06/24/18 10:00 Temperature Pulse Rate 115 H 121 H 118 H Respiratory Rate 20 21 20 Blood Pressure 120/54 L 118/56 L 119/54 L Pulse Oximetry 100 06/24/18 10:42 06/24/18 11:00 06/24/18 12:00 Temperature 37.2 C Pulse Rate 119 H 110 H Respiratory Rate 20 20 20 Blood Pressure 124/56 L 109/52 L Pulse Oximetry 100 Intake & Output 06/23/18 06/24/18 06/24/18 18:59 06:59 18:59 Intake Total 1300 / 1300 250 / 250 100 / 100 Output Total 670 / 670 335 / 335 205 / 205 Balance 630 / 630 -85 / -85 -105 / -105 Weight 76.1 kg Intake: IV 1300 / 1300 250 / 250 100 / 100 EPINEPHrine (1:1000) Inj 4 MG 1000 / 1000 In D5W Inj 246 ML @ 10 MCG/MIN 37.5 mls/hr IV.CONT TITRATE PRN Rx#:[id number] Versed Inj 50 mg In 50 ml @ 2 50 / 50 MG/HR 2 mls/hr IV.CONT TITRATE PRN Rx#:[id number] Levophed Inj 16 MG In D5W Inj 250 / 250 234 ML @ 2 MCG/MIN 1.87 mls/hr IV.CONT TITRATE PRN Rx#: [id number] Pitressin Inj 40 UNIT In D5W 100 / 100 Inj 98 ML @ 0.04 UNITS/MIN 6 mls/hr IV.CONT TITRATE PRN Rx#: [id number] Activase Inj 50 MG In Sterile 50 / 50 Water for Inj 50 ML @ Per Protocol IV.SIG ONCE ONE Rx#: [id number] KCl 40 mEq Premix Inj 40 meq In 100 / 100 100 ml @ 25 mls/hr IV.SIG Q2H PRN Rx#:[id number] Flolan (30,000 ng/mL) Neb 62.5 100 / 100 ML In NS Inj 37.5 ML @ 5 mls/hr NEB Q8H MARU Rx#:[id number] Oral 0 / 0 0 / 0 Output: Urine Amount (Catheter) 670 / 670 335 / 335 205 / 205 Indwelling Urethral Catheter 670 / 670 335 / 335 205 / 205 Other: # Bowel Movements 0 0 Result Diagrams: 06/24/18 04:20 06/24/18 04:20 Objective Remarks: gen: middle-aged female, lying in bed, intubated, sedated heent: nc. at. pupils are 4mm, reactive, equal. mucous membranes moist. neck: + JVD, improved from yesterday. trachea midline. chest: equal chest. spo2 100% on 40% fio2, peep 5. prvc. cv: tachycardic rate of 100s, regular rhythm. sinus. norepinephrine, milrinone, epinephrine, vasopressin drips abd: soft, nontender, nondistended. no guarding. extr: improved perfusion. slightly cool extremities. no edema. neuro: RASS -3. follows commands on sedation hold. Assessment and Plan - Assessment and Plan Plan: Assessment: 62yF with massive Pulmonary embolism with associated cardiac arrest , cardiogenic shock, Cor Pulmonale. remains critically ill. continue supportive care for severe RV failure. Would be an ideal candidate for sildenafil, but currently too hypotensive to add this therapy. will start gentle diuresis. Neuro: Hypoxic Ischemic Encephalopathy - frequent neuro checks - change to fentanyl for goal RASS -2 - head CT 24h after TPA Resp: Acute hypoxic and hypercarbic respiratory failure- improving Massive Pulmonary Embolism - vent bundle - hob elevated - nebs - no weaning of mechanical ventilation until shock improves - wean fio2 for goal spo2 > 90% CV: s/p PEA Arrest Massive Pulmonary Embolism Cardiogenic Shock Cor Pulmonale Acute Right Ventricular failure - continue epi, vaso, levo, milrinone - wean epi to 2 mcg/min - goal map > 65 mmHg - inhaled flolan - cvp monitoring - forced diuresis to maintain appropriate RV preload. - systemic TPA given 06/23. Renal: Acute kidney injury - secondary to shock - continue yanez - trend Cr - close uop monitoring. FEN/GI: Acute intravascular volume overload Acute Liver Injury Lactic acidosis - NPO - place OGT to LI - ICU electrolyte protocol - forced diuresis - Acute liver injury is secondary to a combination of shock liver and congestive hepatopathy - daily cmp, mg, phos. - trend lactates heme/ID: Massive Pulmonary Embolism Community Acquired Beta Strep pneumonia - s/p systemic TPA 06/23 - trend daily coags - watch cbc closely - watch for bleeding - keep on therapeutic lovenox - change from PO levaquin to IV Ceftriaxone 1gm iv q24h: needs total 7 day course (3 additional days) Endo: Hyperglycemia of critical illness - SSI Prophylaxis: GI: pepcid iv DVT: SCDs and therapeutic lovenox Lines: 06/23: right IJ TLC 06/23: right radial art line 06/23: Yanez Dispo: remain in ICU. remains critically ill in shock on vasopressors and inotropes. Critical care time: 57 minutes, exclusive of separately billable procedures. frequent re-evaluations and active management of vasopressors, inotropes in shock. updated family at bedside.
[2018-06-24 17:00] LABS: Factor V Leiden Mutation Negative (Negative)
--- NOTE | 2018-06-24 18:03 | P.PNPL ---
Subjective Interval history: 62 YOWF with Recurrent UTI, Rt pn, pl effusion Legionella and Pneumococcal ag negative found to have Bilat PE and DVT Fi02 decreased 40% Intubated On sedation Squeezes hand on command On Flolan, Epi, levophed and Vasopressin WBC increased Physical Exam Vital signs: Vital Signs 06/23/18 19:00 06/23/18 19:55 06/23/18 20:00 Temperature 97.8 F Pulse Rate 107 H 104 H Respiratory Rate 20 20 20 Blood Pressure 106/60 108/60 Pulse Oximetry 100 100 100 06/23/18 21:00 06/23/18 21:08 06/23/18 21:13 Temperature Pulse Rate 101 H 100 H 109 H Respiratory Rate 20 20 Blood Pressure 114/62 Pulse Oximetry 100 100 06/23/18 22:00 06/23/18 23:00 06/23/18 23:52 Temperature Pulse Rate 101 H 95 H Respiratory Rate 20 23 Blood Pressure 127/58 L Pulse Oximetry 100 100 100 06/24/18 00:00 06/24/18 01:00 06/24/18 02:00 Temperature 97.6 F Pulse Rate 97 H 97 H 97 H Respiratory Rate Blood Pressure 125/62 104/57 L 110/58 L Pulse Oximetry 96 98 98 06/24/18 03:00 06/24/18 04:00 06/24/18 04:02 Temperature Pulse Rate 103 H 115 H 113 H Respiratory Rate Blood Pressure 107/56 L 108/55 L 108/55 L Pulse Oximetry 97 98 98 06/24/18 04:56 06/24/18 05:00 06/24/18 06:00 Temperature 99.6 F Pulse Rate 111 H 110 H Respiratory Rate 20 Blood Pressure 103/54 L 113/56 L Pulse Oximetry 98 99 99 06/24/18 07:00 06/24/18 07:42 06/24/18 08:00 Temperature 98.3 F Pulse Rate 117 H 113 H 115 H Respiratory Rate 20 22 20 Blood Pressure 112/54 L 120/54 L Pulse Oximetry 100 06/24/18 09:00 06/24/18 10:00 06/24/18 10:42 Temperature Pulse Rate 121 H 118 H Respiratory Rate 21 20 20 Blood Pressure 118/56 L 119/54 L Pulse Oximetry 100 06/24/18 11:00 06/24/18 12:00 06/24/18 13:00 Temperature 98.9 F Pulse Rate 119 H 110 H 118 H Respiratory Rate 20 20 20 Blood Pressure 124/56 L 109/52 L 127/55 L Pulse Oximetry 06/24/18 14:00 06/24/18 15:00 06/24/18 15:49 Temperature Pulse Rate 115 H 119 H Respiratory Rate 21 20 20 Blood Pressure 112/50 L 117/54 L Pulse Oximetry 99 06/24/18 16:00 06/24/18 17:00 Temperature Pulse Rate 120 H 121 H Respiratory Rate 20 20 Blood Pressure 136/55 L 122/55 L Pulse Oximetry Intake & Output 06/23/18 06/24/18 06/24/18 18:59 06:59 18:59 Intake Total 1300 / 1300 250 / 250 500 / 500 Output Total 670 / 670 335 / 335 1280 / 1280 Balance 630 / 630 -85 / -85 -780 / -780 Weight 76.1 kg Intake: IV 1300 / 1300 250 / 250 500 / 500 EPINEPHrine (1:1000) Inj 4 MG 1000 / 1000 In D5W Inj 246 ML @ 10 MCG/MIN 37.5 mls/hr IV.CONT TITRATE PRN Rx#:[id number] Versed Inj 50 mg In 50 ml @ 2 50 / 50 MG/HR 2 mls/hr IV.CONT TITRATE PRN Rx#:[id number] Primacor Inj 20 MG In NS Inj 80 100 / 100 ML @ 0.375 MCG/KG/MIN 8.43 mls /hr IV.CONT .[id number] [facility] Rx#: [id number] Levophed Inj 16 MG In D5W Inj 250 / 250 234 ML @ 2 MCG/MIN 1.87 mls/hr IV.CONT TITRATE PRN Rx#: [id number] Pitressin Inj 40 UNIT In D5W 100 / 100 Inj 98 ML @ 0.04 UNITS/MIN 6 mls/hr IV.CONT TITRATE PRN Rx#: [id number] Activase Inj 50 MG In Sterile 50 / 50 Water for Inj 50 ML @ Per Protocol IV.SIG ONCE ONE Rx#: [id number] KCl 40 mEq Premix Inj 40 meq In 200 / 200 100 ml @ 25 mls/hr IV.SIG Q2H PRN Rx#:[id number] Rocephin Inj 1,000 MG In NS Inj 100 / 100 100 ML @ 200 mls/hr IV.SIG Q24H [facility] Rx#:[id number] Flolan (30,000 ng/mL) Neb 62.5 100 / 100 100 / 100 ML In NS Inj 37.5 ML @ 5 mls/hr NEB Q8H [facility] Rx#:[id number] Oral 0 / 0 0 / 0 Output: Urine Amount (Catheter) 670 / 670 335 / 335 1280 / 1280 Indwelling Urethral Catheter 670 / 670 335 / 335 1280 / 1280 Other: # Bowel Movements 0 0 GENERAL: MBMN WF, on Vent sedated with Fentanyl Squeezes hands, opens eyes SKIN: Warm and dry. HEAD: Normocephalic. EYES: No scleral icterus. No injection or drainage. NECK: Supple, trachea midline. No JVD or lymphadenopathy. CARDIOVASCULAR: Regular rate and rhythm without murmurs, gallops, or rubs. RESPIRATORY: Breath sounds equal bilaterally. No accessory muscle use. GASTROINTESTINAL: Abdomen soft, non-tender, nondistended. MUSCULOSKELETAL: No cyanosis, or edema. BACK: Nontender without obvious deformity. No CVA tenderness. - Urinary Catheter Management Indwelling Urethral Catheter Cath placed during this visit: yes Reason for continuing: Hourly intake/output Insertion date: 06/23/18 Insertion time: 09:30 Assessment and Plan - Plan ASSESSMENT AND PLAN: 1. Right lung pneumonia, likely community acquired pneumonia. 2. Pleural effusion, 3. Recurrent UTI, 4. History of hysterectomy. 5. Bilat. PE 6. DVT 7.S/P cardiac arrest PLAN: Vent support, PRVC 40% Flolan Epi a, Vasopressin and Levophed to support pressure Cont Lovenox Cont Abx Monitor Pl effusion Going for CT head.
[2018-06-25] MEDS: Oral Hygiene Kit OROPHARYNG SCH ×4 (00:10→16:26)
[2018-06-25] MEDS: Milrinone Inj 20 MG in Sodium Chlor 0.9% Inj 80 ML IV.CONT SCH ×2 (01:37→13:40)
[2018-06-25] MEDS: Epoprostenol (30,000/mL) Neb 62.5 ML in Sodium Chlor 0.9% Inj 37.5 ML NEB SCH ×4 (04:17→20:43)
[2018-06-25] MEDS: Chlorhexidine Gluconate 2% 1 Pack (2 Cloths) TOPICAL SCH (04:28)
[2018-06-25 05:47] LABS: Baso % (Auto) 0.1 % (0.0-2.0); Eos % (Auto) 0.1 % (0.0-4.0); Hematocrit 30.7 % (35.0-46.0); Hemoglobin 10.2 gm/dL (11.6-15.3); Lymph # (Auto) 2.7 th/mm3 (1.0-4.8); Lymph % (Auto) 11.7 % (9.0-44.0); Mean Corpuscular HGB Conc 33.2 % (32.0-36.0); Mean Corpuscular Hemoglobin 28.5 pg (27.0-34.0); Mean Platelet Volume 8.1 fL (7.0-11.0); Mono # (Auto) 1.6 th/mm3 (0.0-0.9); Mono % (Auto) 7.2 % (0.0-8.0); Neut # (Auto) 18.5 th/mm3 (1.8-7.7); Neut % (Auto) 80.9 % (16.0-70.0); Platelet Count 168 th/mm3 (150-450); Red Blood Count 3.57 mil/mm3 (4.00-5.30); Red Cell Distribution Width 13.5 % (11.6-17.2); White Blood Count 22.9 th/mm3 (4.0-11.0)
[2018-06-25 05:57] LABS: INR 1.1 Ratio; Prothrombin Time 10.7 sec (9.8-11.6)
[2018-06-25 06:26] LABS: Albumin 1.8 g/dL (3.4-5.0); Calcium 7.2 mg/dL (8.5-10.1); Carbon Dioxide 28.3 meq/L (21.0-32.0); Potassium 3.8 meq/L (3.5-5.1); Total Protein 5.3 g/dL (6.4-8.2)
--- NOTE | 2018-06-25 08:44 | P.PNCC ---
Subjective Subjective Remarks/Hospital Course: Hospital Course: 62yF was initially admitted for SOB and found to have large Right sided PE on . was on therapeutic lovenox. today found unresponsive in PEA arrest. [facility] called. I arrived at code [employer]. see code sheet for details. patient intubated by Dr. Hill (see separate documentation). ROSC obtained after epi x 2. patient purposeful after ROSC. emergently transferred to ICU. on bedside critical care echo, severe acute RV failure with RVSP > 70 mmHg, + McConnel's Sign. obliterated LV cavity with bowing of the intraventricular septum into the LV. dilated IVC. severe TR. PEA arrest again in ICU requiring another round of epi and CPR. ROSC again. again purposeful movements after ROSC. emergent systemic TPA ordered since arrest, patient history, and echo consistent with acute massive PE. 50mg dose ordered instead of 100mg dose as patient has already been on 2 days of therapeutic Lovenox. epinephrine, vasopressin and norepinephrine started. patient persistently hypoxic: inhaled flolan added. due to emergent nature and post-arrest, no additional information is available from the patient. ROS unobtainable. remainder of history obtained from the medical record. Subjective: 06/24: remains in shock on vasopressors and inotropes. hypoxia improving. following commands. 06/25: clinically improving. weaning off vasopressors. awake and alert this AM. tolerating SBT. Cr continues to rise, likely secondary to ATN. LFTs downtrending. Objective Vital Signs / I&O: Vital Signs 06/24/18 09:00 06/24/18 10:00 06/24/18 10:42 Temperature Pulse Rate 121 H 118 H Respiratory Rate 21 20 20 Blood Pressure 118/56 L 103/56 L Pulse Oximetry 98 98 100 06/24/18 11:00 06/24/18 12:00 06/24/18 13:00 Temperature 37.2 C Pulse Rate 116 H 112 H 121 H Respiratory Rate 20 20 20 Blood Pressure 124/56 L 106/58 L 127/55 L Pulse Oximetry 96 96 94 L 06/24/18 14:00 06/24/18 15:00 06/24/18 15:49 Temperature Pulse Rate 115 H 118 H Respiratory Rate 21 20 20 Blood Pressure 104/50 L 117/54 L Pulse Oximetry 93 L 95 99 06/24/18 16:00 06/24/18 17:00 06/24/18 18:00 Temperature 37.1 C Pulse Rate 122 H 125 H 125 H Respiratory Rate 20 20 20 Blood Pressure 115/56 L 122/55 L 112/56 L Pulse Oximetry 96 95 96 06/24/18 19:00 06/24/18 20:00 06/24/18 20:36 Temperature 37.6 C H Pulse Rate 127 H 125 H 128 H Respiratory Rate 20 Blood Pressure 109/54 L Pulse Oximetry 97 96 95 06/24/18 21:00 06/24/18 21:28 06/24/18 22:00 Temperature Pulse Rate 128 H 129 H 127 H Respiratory Rate Blood Pressure 119/57 L 123/58 L Pulse Oximetry 96 96 97 06/24/18 23:00 06/24/18 23:53 06/25/18 00:00 Temperature 37.3 C Pulse Rate 128 H 130 H Respiratory Rate 21 Blood Pressure 126/60 Pulse Oximetry 97 96 97 06/25/18 00:44 06/25/18 01:00 06/25/18 02:00 Temperature Pulse Rate 125 H 125 H 128 H Respiratory Rate 20 Blood Pressure 123/61 130/60 135/65 Pulse Oximetry 97 98 97 06/25/18 03:00 06/25/18 03:33 06/25/18 04:00 Temperature 37.4 C Pulse Rate 137 H 130 H Respiratory Rate 20 22 20 Blood Pressure 138/51 L 138/63 Pulse Oximetry 97 98 97 06/25/18 05:00 06/25/18 06:00 06/25/18 07:52 Temperature Pulse Rate 133 H 130 H 127 H Respiratory Rate 21 20 24 Blood Pressure 128/62 114/46 L Pulse Oximetry 97 98 99 Intake & Output 06/24/18 06/25/18 06/25/18 18:59 06:59 18:59 Intake Total 600 / 600 550 / 550 Output Total 1500 / 1500 835 / 835 Balance -900 / -900 -285 / -285 Weight 77 kg Intake: IV 600 / 600 550 / 550 EPINEPHrine (1:1000) Inj 4 MG 250 / 250 In D5W Inj 246 ML @ 10 MCG/MIN 37.5 mls/hr IV.CONT TITRATE PRN Rx#:[id number] Primacor Inj 20 MG In NS Inj 80 100 / 100 100 / 100 ML @ 0.375 MCG/KG/MIN 8.43 mls /hr IV.CONT .[id number] [facility] Rx#: [id number] Pitressin Inj 40 UNIT In D5W 100 / 100 100 / 100 Inj 98 ML @ 0.04 UNITS/MIN 6 mls/hr IV.CONT TITRATE PRN Rx#: [id number] KCl 40 mEq Premix Inj 40 meq In 200 / 200 100 ml @ 25 mls/hr IV.SIG Q2H PRN Rx#:[id number] Rocephin Inj 1,000 MG In NS Inj 100 / 100 100 ML @ 200 mls/hr IV.SIG Q24H [facility] Rx#:[id number] Flolan (30,000 ng/mL) Neb 62.5 100 / 100 100 / 100 ML In NS Inj 37.5 ML @ 5 mls/hr NEB Q8H [facility] Rx#:[id number] Oral 0 / 0 Output: Urine Amount (Catheter) 1500 / 1500 735 / 735 Indwelling Urethral Catheter 1500 / 1500 735 / 735 Gastric Drainage 100 / 100 Orogastric Tube 100 / 100 Other: Date of Last Bowel Movement 06/18/18 # Bowel Movements 0 Result Diagrams: 06/25/18 05:00 06/25/18 05:00 Objective Remarks: gen: middle-aged female, lying in bed, intubated, sedated heent: nc. at. pupils are reactive, equal. mucous membranes moist. neck: no JVD. trachea midline. chest: equal chest. spo2 100% on 40% fio2, peep 5. PSV. cv: tachycardic rate of 130s, regular rhythm. sinus. norepinephrine, milrinone, vasopressin drips abd: soft, nontender, nondistended. no guarding. extr: improved perfusion. warm. no edema. neuro: RASS 0. follows commands. awake, alert. Assessment and Plan - Assessment and Plan Plan: Assessment: 62yF with massive Pulmonary embolism with associated cardiac arrest , cardiogenic shock, Cor Pulmonale. continues to improve. will work towards extubation. still needs significant RV support. Neuro: Hypoxic Ischemic Encephalopathy - frequent neuro checks - fentanyl, goal RASS 0. - head CT 24h after TPA Resp: Acute hypoxic and hypercarbic respiratory failure- improving Massive Pulmonary Embolism - vent bundle - hob elevated - nebs - SBT today: wean to extubate if possible. - need to keep inhaled flolan for RV support: will deliver via facemask. - wean fio2 for goal spo2 > 90% CV: s/p PEA Arrest Massive Pulmonary Embolism Cardiogenic Shock- improving. Cor Pulmonale Acute Right Ventricular failure- improving. - continue vaso, levo, milrinone - d/c epi - goal map > 65 mmHg - inhaled flolan: keep today. - cvp monitoring - forced diuresis to maintain appropriate RV preload. - systemic TPA given 06/23. - would be good sildenafil candidate, but still too hypotensive. will start when systemic blood pressure improves. Renal: Acute kidney injury- persistent - secondary to shock - likely ATN at this point - trial removal of Kurtis today - trend Cr - close uop monitoring. FEN/GI: Acute intravascular volume overload- improving. Acute Liver Injury- resolving. Lactic acidosis- resolved - if she does not extubate today, will start tube feeds. - ICU electrolyte protocol - appears euvolemic today. - Acute liver injury is secondary to a combination of shock liver and congestive hepatopathy: improving. - daily cmp, mg, phos. - trend lactates heme/ID: Massive Pulmonary Embolism Community Acquired Beta Strep pneumonia - s/p systemic TPA 06/23 - trend daily coags - watch cbc closely - watch for bleeding - keep on therapeutic lovenox - changed from PO levaquin to IV Ceftriaxone 1gm iv q24h 06/24: needs total 7 day course (2 additional days) Endo: Hyperglycemia of critical illness - SSI Prophylaxis: GI: pepcid iv DVT: SCDs and therapeutic lovenox Lines: 06/23: right IJ TLC 06/23: right radial art line- can d/c once off vasopressors. 06/23: Kurtis: will trial d/c today. Dispo: remain in ICU.
[2018-06-25] MEDS: Senna/Docusate Sodium 8.6/50 MG Tablet PO SCH ×2 (09:28→20:45)
[2018-06-25] MEDS: Enoxaparin Inj 80 MG/0.8 ML Syringe SQ SCH (09:28)
[2018-06-25] MEDS: Chlorhexidine 0.12% Oral Kit 15 ML UDC OROPHARYNG SCH ×2 (09:28→20:43)
[2018-06-25] MEDS: Famotidine PF Inj 20 MG/2 ML Vial IV.PUSH SCH (09:28)
[2018-06-25] MEDS: Famotidine 20 MG Tablet PO SCH ×2 (09:29→20:45)
--- NOTE | 2018-06-25 11:10 | P.PNONC ---
Subjective Interval history: T-max 99.7 last night Patient was recently extubated this morning Has some soreness in her chest Appropriately nodding her head yes and no to questions Objective Vital Signs/Intake & Output: Vital Signs 06/24/18 12:00 06/24/18 13:00 06/24/18 14:00 Temperature 98.9 F Pulse Rate 112 H 121 H 115 H Respiratory Rate 20 20 21 Blood Pressure 106/58 L 127/55 L 104/50 L Pulse Oximetry 96 94 L 93 L 06/24/18 15:00 06/24/18 15:49 06/24/18 16:00 Temperature Pulse Rate 118 H 122 H Respiratory Rate 20 20 20 Blood Pressure 117/54 L 115/56 L Pulse Oximetry 95 99 96 06/24/18 17:00 06/24/18 18:00 06/24/18 19:00 Temperature 98.7 F Pulse Rate 125 H 125 H 127 H Respiratory Rate 20 20 Blood Pressure 122/55 L 112/56 L Pulse Oximetry 95 96 97 06/24/18 20:00 06/24/18 20:36 06/24/18 21:00 Temperature 99.7 F H Pulse Rate 125 H 128 H 128 H Respiratory Rate 20 Blood Pressure 109/54 L Pulse Oximetry 96 95 96 06/24/18 21:28 06/24/18 22:00 06/24/18 23:00 Temperature Pulse Rate 129 H 127 H 128 H Respiratory Rate Blood Pressure 119/57 L 123/58 L Pulse Oximetry 96 97 97 06/24/18 23:53 06/25/18 00:00 06/25/18 00:44 Temperature 99.1 F Pulse Rate 130 H 125 H Respiratory Rate 21 Blood Pressure 126/60 123/61 Pulse Oximetry 96 97 97 06/25/18 01:00 06/25/18 01:30 06/25/18 02:00 Temperature Pulse Rate 125 H 125 H 128 H Respiratory Rate 20 Blood Pressure 130/60 135/60 135/62 Pulse Oximetry 98 98 97 06/25/18 02:30 06/25/18 03:00 06/25/18 03:30 Temperature Pulse Rate 144 H 137 H 130 H Respiratory Rate 20 Blood Pressure 135/63 130/59 L 128/57 L Pulse Oximetry 97 97 97 06/25/18 03:33 06/25/18 04:00 06/25/18 04:30 Temperature 99.4 F Pulse Rate 130 H 127 H Respiratory Rate 22 20 Blood Pressure 139/63 144/59 H Pulse Oximetry 98 97 97 06/25/18 05:00 06/25/18 05:09 06/25/18 05:30 Temperature Pulse Rate 133 H 135 H 128 H Respiratory Rate 21 Blood Pressure 147/105 H 153/66 H 139/64 Pulse Oximetry 97 97 98 06/25/18 06:00 06/25/18 06:30 06/25/18 07:00 Temperature Pulse Rate 126 H 130 H 132 H Respiratory Rate 20 Blood Pressure 134/62 131/58 L 157/66 H Pulse Oximetry 98 98 98 06/25/18 07:30 06/25/18 07:52 06/25/18 08:00 Temperature 99.5 F Pulse Rate 130 H 127 H 130 H Respiratory Rate 24 25 H Blood Pressure 147/65 H 133/57 L Pulse Oximetry 97 99 97 06/25/18 08:30 06/25/18 09:00 06/25/18 09:30 Temperature Pulse Rate 129 H 132 H 127 H Respiratory Rate Blood Pressure 139/63 162/71 H 156/66 H Pulse Oximetry 97 98 96 Intake & Output 06/24/18 06/25/18 06/25/18 18:59 06:59 18:59 Intake Total 600 / 600 550 / 550 Output Total 1500 / 1500 835 / 835 120 / 120 Balance -900 / -900 -285 / -285 -120 / -120 Weight 169 lb 12.095 oz Intake: IV 600 / 600 550 / 550 EPINEPHrine (1:1000) Inj 4 MG 250 / 250 In D5W Inj 246 ML @ 10 MCG/MIN 37.5 mls/hr IV.CONT TITRATE PRN Rx#:[id number] Primacor Inj 20 MG In NS Inj 80 100 / 100 100 / 100 ML @ 0.375 MCG/KG/MIN 8.43 mls /hr IV.CONT .[id number] [facility] Rx#: [id number] Pitressin Inj 40 UNIT In D5W 100 / 100 100 / 100 Inj 98 ML @ 0.04 UNITS/MIN 6 mls/hr IV.CONT TITRATE PRN Rx#: [id number] KCl 40 mEq Premix Inj 40 meq In 200 / 200 100 ml @ 25 mls/hr IV.SIG Q2H PRN Rx#:[id number] Rocephin Inj 1,000 MG In NS Inj 100 / 100 100 ML @ 200 mls/hr IV.SIG Q24H [facility] Rx#:[id number] Flolan (30,000 ng/mL) Neb 62.5 100 / 100 100 / 100 ML In NS Inj 37.5 ML @ 5 mls/hr NEB Q8H [facility] Rx#:[id number] Oral 0 / 0 Output: Urine 45 / 45 Urine Amount (Catheter) 1500 / 1500 735 / 735 75 / 75 Indwelling Urethral Catheter 1500 / 1500 735 / 735 75 / 75 Gastric Drainage 100 / 100 Orogastric Tube 100 / 100 Other: Date of Last Bowel Movement 06/18/18 # Bowel Movements 0 Result Diagrams: 06/25/18 05:00 06/25/18 05:00 Laboratory Results: Laboratory Results - last 24 hr 06/21/18 06/21/18 06/24/18 17:20 17:20 18:40 WBC RBC Hgb Hct MCV MCH MCHC RDW Plt Count MPV Neut % (Auto) Lymph % (Auto) [place] % (Auto) Eos % (Auto) Baso % (Auto) Neut # (Auto) Lymph # (Auto) [place] # (Auto) Eos # (Auto) Baso # (Auto) WBC Differential Differential Comment PT INR Protein C Antigen 100 Protein S Activity 128 Factor V Leiden Mutat Negative Factor V Leiden Interp . Fact V Leiden Review By See below Sodium Potassium 4.1 D Chloride Carbon Dioxide Anion Gap BUN Creatinine Estimated GFR Random Glucose Calcium Prot Corrected Calcium Total Bilirubin AST ALT Alkaline Phosphatase Total Protein Albumin Anti-Cardiolipin IgG Ab <9.4 Anti-Cardiolipin IgM Ab <9.4 06/25/18 06/25/18 06/25/18 05:00 05:00 05:00 WBC 22.9 H RBC 3.57 L Hgb 10.2 L D Hct 30.7 L MCV 86.0 MCH 28.5 MCHC 33.2 RDW 13.5 Plt Count 168 MPV 8.1 Neut % (Auto) 80.9 H Lymph % (Auto) 11.7 [place] % (Auto) 7.2 Eos % (Auto) 0.1 Baso % (Auto) 0.1 Neut # (Auto) 18.5 H Lymph # (Auto) 2.7 [place] # (Auto) 1.6 H Eos # (Auto) 0.0 Baso # (Auto) 0.0 WBC Differential . Differential Comment Auto diff final PT 10.7 INR 1.1 Protein C Antigen Protein S Activity Factor V Leiden Mutat Factor V Leiden Interp Fact V Leiden Review By Sodium 137 Potassium 3.8 Chloride 99 Carbon Dioxide 28.3 Anion Gap 10 BUN 35 H Creatinine 2.08 H Estimated GFR 24 L Random Glucose 164 H Calcium 7.2 L* Prot Corrected Calcium 8.2 L Total Bilirubin 0.5 AST 115 H ALT 301 H Alkaline Phosphatase 124 H Total Protein 5.3 L Albumin 1.8 L Anti-Cardiolipin IgG Ab Anti-Cardiolipin IgM Ab Culture Results: Microbiology 06/23/18 08:50 Aerobic Blood Culture - Preliminary Blood - Peripheral No growth in 2 days Anaerobic Blood Culture - Preliminary No growth in 2 days 06/23/18 09:10 Aerobic Blood Culture - Preliminary Blood - Peripheral No growth in 2 days Anaerobic Blood Culture - Preliminary No growth in 2 days 06/23/18 17:00 Gram Stain - Final Sputum - Endotracheal Sputum Culture - Final Rare growth normal respiratory loretta 06/20/18 08:00 Gram Stain - Final Sputum - Expectorated Sputum Sputum Culture - Final Beta Strep not group A 06/18/18 15:45 Aerobic Blood Culture - Final Blood - Peripheral No growth in 5 days Anaerobic Blood Culture - Final No growth in 5 days 06/18/18 15:30 Aerobic Blood Culture - Final Blood - Peripheral No growth in 5 days Anaerobic Blood Culture - Final No growth in 5 days Medications: Active Medications Generic Name Dose Route Start Last Admin Trade Name Freq PRN Reason Stop Dose Admin Acetaminophen 650 mg 06/18/18 15:44 06/23/18 16:30 Tylenol PO 650 mg Q4H PRN Administration Temp > 100.4 Al Hydroxide/Mg Hydroxide 30 ml 06/18/18 15:44 06/22/18 16:37 Milk Of Magnesia Liq PO 30 ml Q12H PRN Administration Mild Constipation Albuterol 1 ampul 06/18/18 20:00 06/25/18 07:49 Duoneb Neb ([facility]) NEB 1 ampul Q6HR WHILE AWAKE NEB [facility] Administration Chlorhexidine Gluconate 15 ml 06/23/18 20:00 06/25/18 09:28 Peridex 0.12% Oral Kit OROPHARYNG 15 ml BID@0800,2000 [facility] Administration Chlorhexidine Gluconate 3 pack 06/24/18 04:00 06/25/18 04:28 Chlorhexidine 2% Cloth TOPICAL 06/29/18 03:59 3 pack DAILY@0400 [facility] Administration Enoxaparin Sodium 75 mg 06/22/18 09:00 06/25/18 09:28 Lovenox Inj SQ 75 mg Q12HR [facility] Administration Famotidine 10 mg 06/23/18 21:00 06/25/18 09:29 Pepcid PO Not Given BID [facility] Norepinephrine Bitartrate 16 250 mls @ 1.87 mls/hr 06/23/18 09:14 06/25/18 06 :28 mg/ Dextrose IV.CONT 9 mcg/min TITRATE PRN 8.43 mls/hr See Protocol Titration Protocol 2 MCG/MIN Potassium Chloride 40 meq in 100 mls @ 25 mls/hr 06/23/18 09:22 06/24/18 14: 09 Kcl 40 Meq Premix Inj IV.SIG Infused Q2H PRN Infusion For Potassium 2.8 - 3.2 mEq/L Vasopressin 40 unit/ Dextrose 100 mls @ 6 mls/hr 06/23/18 09:35 06/24/18 23: 39 IV.CONT 0.04 units/min TITRATE PRN 6 mls/hr Per Protocol Administration Protocol 0.04 UNITS/MIN Epoprostenol Sodium 62.5 ml/ 100 mls @ 5 mls/hr 06/23/18 12:00 06/25/18 04:27 Sodium Chloride NEB 5 mls/hr Q8H [facility] Administration Milrinone Lactate 20 mg/ 100 mls @ 5.62 mls/hr 06/24/18 02:00 06/25/18 01:37 Sodium Chloride IV.CONT 0.375 mcg/kg/min .[id number] [facility] 8.43 mls/hr Administration 0.25 MCG/KG/MIN Ceftriaxone Sodium 1,000 mg/ 100 mls @ 200 mls/hr 06/24/18 13:00 06/24/18 14: 30 Sodium Chloride IV.SIG 06/27/18 12:59 Infused Q24H [facility] Infusion Miscellaneous Medication 1 each 06/23/18 12:00 06/25/18 04:27 OROPHARYNG 1 each 0000,0400,1200,1600 [facility] Administration Ondansetron HCl 4 mg 06/18/18 15:51 06/22/18 16:01 Zofran Odt PO 4 mg Q6H PRN Administration NAUSEA Senna/Docusate Sodium 1 tab 06/18/18 21:00 06/25/18 09:28 Maria Luisa-Colace PO 1 tab BID [facility] Administration Sodium Chloride 2 ml 06/23/18 21:00 06/25/18 09:29 Ns Flush IV.FLUSH 2 ml BID [facility] Administration Objective Remarks: GENERAL: Older female resting in bed with eyes closed. SKIN: Warm and dry. NECK: Supple, trachea midline. CARDIOVASCULAR: Tachycardic in the 120s RESPIRATORY: Scattered rhonchi anteriorly. On O2 mask. GASTROINTESTINAL: Abdomen soft, non-tender, nondistended. EXTREMITIES: No cyanosis. Left lower extremity edema. MUSCULOSKELETAL: Adequate muscle tone. NEUROLOGICAL: Lethargic. Shakes her head yes and no appropriately to questions. Follows commands. Assessment/Plan - Plan 62-year-old female admitted with shortness of breath found to have a pulmonary embolism. She was started on anticoagulation but unfortunately developed worsening pulmonary embolism and went into PEA twice and was successfully resuscitated. 1. Continue therapeutic Lovenox dosing. 2. Monitor for bleeding. Monitor CBC, coags. 3. Supportive care. - Attending Statement The exam, history, and the medical decision-making described in the above note were completed with the assistance of the mid-level provider. I reviewed and agree with the findings presented. I attest that I had a [id number] encounter with the patient on the same day, and personally performed and documented my assessment and findings in the medical record. 62 yoF with PE s/p TPA. Currently on therapeutic lovenox dosing. Monitor for bleeding. Hypercoaguable work up pending. Leukocytosis: reactive due to infection, inflammation. cotninue to trend.
--- NOTE | 2018-06-25 13:18 | CT ---
EXAM DATE: 06/25/2018 12:21 PM EDT AGE/SEX: 62 years / Female INDICATIONS: Altered mental status. CLINICAL DATA: This is the patient's initial encounter. Patient reports that signs and symptoms have been present for 1 day and indicates a pain score of Nonresponsive. MEDICAL/SURGICAL HISTORY: Herpes. Urinary tract infection. Hysterectomy. Bladder surgery. RADIATION DOSE: 37.92 CTDI (mGy) COMPARISON: No prior exams available for comparison. TECHNIQUE: CT of the head without contrast. Using automated exposure control and adjustment of the mA and/or kV according to patient size, radiation dose was kept as low as reasonably achievable to ob tain optimal diagnostic quality images. DICOM format image data is available electronically for revi ew and comparison. FINDINGS: Cerebrum: The ventricles are normal for age. There is some bilateral cortical atrophy characteristic for patient's age. No evidence of midline shift, mass lesion, hemorrhage or acute infarction. No ex traaxial fluid collections are seen. Posterior Fossa: The cerebellum and brainstem are intact. The 4th ventricle is midline. The cerebe llopontine angle is unremarkable. Extracranial: The visualized portion of the orbits is intact. Skull: The calvaria is intact. No evidence of skull fracture. CONCLUSION: 1. Unremarkable CT scan of the brain for patient's age. . Electronically signed by: Jhonny Lane MD 06/25/2018 1:17 PM EDT
[2018-06-25] MEDS: HYDROmorphone PF Inj 2 MG/ML Vial IV.PUSH PRN ×3 (13:36→22:17)
[2018-06-25] MEDS: Vasopressin Inj 40 UNIT in Dextrose 5% in Water Inj 98 ML IV.CONT PRN ×2 (15:00)
[2018-06-26] MEDS: Oral Hygiene Kit OROPHARYNG SCH ×4 (00:11→16:56)
[2018-06-26] MEDS: Chlorhexidine Gluconate 2% 1 Pack (2 Cloths) TOPICAL SCH (03:21)
[2018-06-26] MEDS: Epoprostenol (30,000/mL) Neb 62.5 ML in Sodium Chlor 0.9% Inj 37.5 ML NEB SCH (03:21)
[2018-06-26] MEDS: HYDROmorphone PF Inj 2 MG/ML Vial IV.PUSH PRN ×4 (03:46→14:58)
[2018-06-26 03:52] LABS: Dil Russell Viper Venom Conf ( ND (NEGATIVE); Dil Russell Viper Venom Time M ND (CORRECTED); Lupus Anticoagulant PTT Screen 46 seconds (< OR = 40)
[2018-06-26 05:40] LABS: Baso % (Auto) 0.1 % (0.0-2.0); Hematocrit 24.4 % (35.0-46.0); Hemoglobin 8.3 gm/dL (11.6-15.3); Lymph # (Auto) 1.2 th/mm3 (1.0-4.8); Lymph % (Auto) 10.8 % (9.0-44.0); Mean Corpuscular HGB Conc 33.9 % (32.0-36.0); Mean Corpuscular Hemoglobin 29.1 pg (27.0-34.0); Mean Corpuscular Volume 85.9 fL (80.0-100.0); Mean Platelet Volume 7.8 fL (7.0-11.0); Mono # (Auto) 0.6 th/mm3 (0.0-0.9); Mono % (Auto) 5.7 % (0.0-8.0); Neut # (Auto) 9.5 th/mm3 (1.8-7.7); Neut % (Auto) 83.4 % (16.0-70.0); Platelet Count 138 th/mm3 (150-450); Red Blood Count 2.84 mil/mm3 (4.00-5.30); Red Cell Distribution Width 13.5 % (11.6-17.2); White Blood Count 11.3 th/mm3 (4.0-11.0)
--- NOTE | 2018-06-26 05:40 | XR ---
EXAM DATE: 06/26/2018 5:00 AM EDT AGE/SEX: 62 years / Female INDICATIONS: Shortness of breath, possible pulmonary disease. CLINICAL DATA: This is the patient's subsequent encounter. Patient reports that signs and symptoms h ave been present for 1 week and indicates a pain score of Nonresponsive. MEDICAL/SURGICAL HISTORY: Herpes. UTI. Hysterectomy. COMPARISON: C, CHEST 1V SINGLE AP, 06/24/2018. . FINDINGS: There has been interval extubation and removal of nasogastric tube. Right neck central line remains i n place. There is persistent hazy bilateral pleural parenchymal opacity primarily over the lower lung zones, grossly unchanged. Cardiac contours are stable. CONCLUSION: Interval extubation. Stable aeration. Electronically signed by: Aj Rothman MD 06/26/2018 5:39 AM EDT
[2018-06-26 06:06] LABS: Albumin 1.7 g/dL (3.4-5.0); Anion Gap 9 meq/L (5-15); Aspartate Aminotransferase 59 U/L (15-37); Blood Urea Nitrogen 36 mg/dL (7-18); Calcium 7.9 mg/dL (8.5-10.1); Carbon Dioxide 28.6 meq/L (21.0-32.0); Chloride 102 meq/L (98-107); Glomerular Filtration Rate 29 mL/min (>89); Glucose,Random 78 mg/dL (74-106); Potassium 3.7 meq/L (3.5-5.1); Sodium 140 meq/L (136-145)
[2018-06-26 06:07] LABS: Alanine Aminotransferase 163 U/L (10-53)
[2018-06-26 06:09] LABS: Alkaline Phosphatase 94 U/L (45-117); Total Protein 5.5 g/dL (6.4-8.2)
[2018-06-26] MEDS: Chlorhexidine 0.12% Oral Kit 15 ML UDC OROPHARYNG SCH ×2 (07:11→22:21)
--- NOTE | 2018-06-26 07:48 | P.PNCC ---
Subjective Subjective Remarks/Hospital Course: Hospital Course: 62yF was initially admitted for SOB and found to have large Right sided PE on . was on therapeutic lovenox. today found unresponsive in PEA arrest. [facility] called. I arrived at code [employer]. see code sheet for details. patient intubated by Dr. Hill (see separate documentation). ROSC obtained after epi x 2. patient purposeful after ROSC. emergently transferred to ICU. on bedside critical care echo, severe acute RV failure with RVSP > 70 mmHg, + McConnel's Sign. obliterated LV cavity with bowing of the intraventricular septum into the LV. dilated IVC. severe TR. PEA arrest again in ICU requiring another round of epi and CPR. ROSC again. again purposeful movements after ROSC. emergent systemic TPA ordered since arrest, patient history, and echo consistent with acute massive PE. 50mg dose ordered instead of 100mg dose as patient has already been on 2 days of therapeutic Lovenox. epinephrine, vasopressin and norepinephrine started. patient persistently hypoxic: inhaled flolan added. due to emergent nature and post-arrest, no additional information is available from the patient. ROS unobtainable. remainder of history obtained from the medical record. Subjective: 06/24: remains in shock on vasopressors and inotropes. hypoxia improving. following commands. 06/25: clinically improving. weaning off vasopressors. awake and alert this AM. tolerating SBT. Cr continues to rise, likely secondary to ATN. LFTs downtrending. 06/26: off vasopressors and inotropes. doing well. still complains of chest pain secondary to CPR and rib fractures. all organ function improving. Objective Vital Signs / I&O: Vital Signs 06/25/18 07:52 06/25/18 08:00 06/25/18 08:30 Temperature 37.5 C Pulse Rate 127 H 130 H 129 H Respiratory Rate 24 25 H Blood Pressure 133/57 L 139/63 Pulse Oximetry 99 97 97 06/25/18 09:00 06/25/18 09:30 06/25/18 10:00 Temperature Pulse Rate 132 H 127 H 130 H Respiratory Rate Blood Pressure 162/71 H 156/66 H 159/68 H Pulse Oximetry 98 96 94 L 06/25/18 10:30 06/25/18 11:00 06/25/18 12:00 Temperature Pulse Rate 126 H 126 H 125 H Respiratory Rate Blood Pressure 142/65 H 134/62 116/45 L Pulse Oximetry 94 L 94 L 06/25/18 13:21 06/25/18 13:42 06/25/18 13:45 Temperature Pulse Rate 123 H 124 H 125 H Respiratory Rate 28 H Blood Pressure 163/70 H 156/64 H Pulse Oximetry 91 L 91 L 06/25/18 13:48 06/25/18 13:51 06/25/18 13:54 Temperature Pulse Rate 125 H 121 H 119 H Respiratory Rate Blood Pressure 148/65 H 141/63 H 139/65 Pulse Oximetry 92 L 92 L 92 L 06/25/18 13:57 06/25/18 14:00 06/25/18 14:03 Temperature Pulse Rate 120 H 119 H 119 H Respiratory Rate Blood Pressure 134/63 138/64 136/62 Pulse Oximetry 90 L 91 L 91 L 06/25/18 14:06 06/25/18 14:09 06/25/18 14:12 Temperature Pulse Rate 121 H 120 H 117 H Respiratory Rate Blood Pressure 147/64 H 143/58 H 143/63 H Pulse Oximetry 92 L 93 L 92 L 06/25/18 14:15 06/25/18 14:18 06/25/18 14:21 Temperature Pulse Rate 118 H 118 H 121 H Respiratory Rate Blood Pressure 139/60 144/63 H 146/65 H Pulse Oximetry 93 L 91 L 91 L 06/25/18 14:24 06/25/18 14:27 06/25/18 14:30 Temperature Pulse Rate 119 H 117 H 116 H Respiratory Rate Blood Pressure 143/63 H 140/62 157/69 H Pulse Oximetry 91 L 91 L 93 L 06/25/18 14:34 06/25/18 14:36 06/25/18 14:39 Temperature Pulse Rate 116 H 117 H 118 H Respiratory Rate Blood Pressure 136/60 153/65 H 150/62 H Pulse Oximetry 92 L 91 L 93 L 06/25/18 14:42 06/25/18 14:45 06/25/18 14:48 Temperature Pulse Rate 117 H 114 H 115 H Respiratory Rate Blood Pressure 128/58 L 132/53 L 129/59 L Pulse Oximetry 93 L 94 L 95 06/25/18 14:51 06/25/18 14:54 06/25/18 14:57 Temperature Pulse Rate 114 H 114 H 113 H Respiratory Rate Blood Pressure 126/59 L 131/61 119/60 Pulse Oximetry 94 L 94 L 94 L 06/25/18 15:00 06/25/18 15:03 06/25/18 15:06 Temperature Pulse Rate 113 H 114 H 112 H Respiratory Rate Blood Pressure 128/60 134/60 131/60 Pulse Oximetry 95 95 94 L 06/25/18 15:09 06/25/18 15:12 06/25/18 15:30 Temperature Pulse Rate 120 H 117 H 111 H Respiratory Rate Blood Pressure 154/67 H 152/66 H 125/52 L Pulse Oximetry 93 L 95 93 L 06/25/18 16:00 06/25/18 16:29 06/25/18 16:30 Temperature 37.8 C H Pulse Rate 109 H 112 H 112 H Respiratory Rate Blood Pressure 123/56 L 121/56 L 124/58 L Pulse Oximetry 94 L 94 L 93 L 06/25/18 16:35 06/25/18 17:00 06/25/18 17:20 Temperature Pulse Rate 118 H 111 H 115 H Respiratory Rate Blood Pressure 129/60 116/56 L 115/55 L Pulse Oximetry 93 L 95 94 L 06/25/18 17:25 06/25/18 17:30 06/25/18 17:35 Temperature Pulse Rate 110 H 109 H 114 H Respiratory Rate Blood Pressure 112/53 L 105/49 L 112/52 L Pulse Oximetry 95 95 94 L 06/25/18 17:40 06/25/18 17:45 06/25/18 17:50 Temperature Pulse Rate 113 H 118 H 119 H Respiratory Rate Blood Pressure 110/52 L 114/53 L 115/54 L Pulse Oximetry 95 94 L 95 06/25/18 17:55 06/25/18 18:00 06/25/18 18:05 Temperature Pulse Rate 118 H 116 H 120 H Respiratory Rate Blood Pressure 123/58 L 122/57 L 143/64 H Pulse Oximetry 95 95 94 L 06/25/18 18:10 06/25/18 18:15 06/25/18 18:20 Temperature Pulse Rate 124 H 123 H 120 H Respiratory Rate Blood Pressure 146/56 H 141/61 H 124/56 L Pulse Oximetry 94 L 92 L 95 06/25/18 18:25 06/25/18 18:30 06/25/18 18:35 Temperature Pulse Rate 120 H 121 H 120 H Respiratory Rate Blood Pressure 131/59 L 116/54 L 122/56 L Pulse Oximetry 95 94 L 95 06/25/18 19:00 06/25/18 20:00 06/25/18 20:25 Temperature 36.9 C Pulse Rate 117 H 114 H 117 H Respiratory Rate 26 H Blood Pressure 116/55 L 128/56 L Pulse Oximetry 95 95 06/25/18 21:00 06/25/18 22:00 06/25/18 22:13 Temperature Pulse Rate 116 H 119 H Respiratory Rate Blood Pressure 124/58 L 143/63 H Pulse Oximetry 95 93 L 95 06/25/18 23:00 06/25/18 23:59 06/26/18 00:00 Temperature Pulse Rate 110 H 113 H Respiratory Rate Blood Pressure 121/56 L 138/62 Pulse Oximetry 96 96 94 L 06/26/18 01:00 06/26/18 02:00 06/26/18 03:00 Temperature Pulse Rate 119 H 107 H 103 H Respiratory Rate Blood Pressure 144/65 H 141/62 H 123/58 L Pulse Oximetry 93 L 96 95 06/26/18 04:00 06/26/18 05:00 06/26/18 06:00 Temperature Pulse Rate 108 H 108 H 109 H Respiratory Rate 24 Blood Pressure 140/63 140/59 L 140/63 Pulse Oximetry 97 98 98 06/26/18 06:40 06/26/18 07:32 06/26/18 07:34 Temperature Pulse Rate 107 H Respiratory Rate 23 Blood Pressure Pulse Oximetry 95 96 Intake & Output 06/25/18 06/26/18 06/26/18 18:59 06:59 18:59 Intake Total 820 / 820 Output Total 375 / 375 700 / 700 Balance 445 / 445 -700 / -700 Weight 73.4 kg Intake: IV 770 / 770 EPINEPHrine (1:1000) Inj 4 MG 220 / 220 In D5W Inj 246 ML @ 10 MCG/MIN 37.5 mls/hr IV.CONT TITRATE PRN Rx#:[id number] Versed Inj 50 mg In 50 ml @ 2 0 / 0 MG/HR 2 mls/hr IV.CONT TITRATE PRN Rx#:[id number] Pitressin Inj 40 UNIT In D5W 100 / 100 Inj 98 ML @ 0.04 UNITS/MIN 6 mls/hr IV.CONT TITRATE PRN Rx#: [id number] Rocephin Inj 1,000 MG In NS Inj 100 / 100 100 ML @ 200 mls/hr IV.SIG Q24H [facility] Rx#:[id number] fentaNYL 10 mcg/mL Premix Drip 250 / 250 2,500 mcg In 250 ml @ 50 MCG/HR 5 mls/hr IV.SIG TITRATE PRN Rx #:[id number] Flolan (30,000 ng/mL) Neb 62.5 100 / 100 ML In NS Inj 37.5 ML @ 5 mls/hr NEB Q8H [facility] Rx#:[id number] Oral 50 / 50 Output: Urine 45 / 45 Urine Amount (Catheter) 330 / 330 700 / 700 Indwelling Urethral Catheter 330 / 330 700 / 700 Other: # Bowel Movements 0 Result Diagrams: 06/26/18 04:45 06/26/18 04:45 Objective Remarks: gen: middle-aged female, lying in bed, awake, alert. heent: nc. at. pupils are reactive, equal. mucous membranes moist. neck: no JVD. trachea midline. chest: equal chest. face-mask flolan. cv: tachycardic rate of 110s, regular rhythm. sinus. abd: soft, nontender, nondistended. no guarding. extr: improved perfusion. warm. no edema. neuro: RASS 0. follows commands. awake, alert. Assessment and Plan - Assessment and Plan Plan: Assessment: 62yF with massive Pulmonary embolism with associated cardiac arrest , cardiogenic shock, Cor Pulmonale. continues to improve. blood pressure high enough today to start sildenafil. OOB with PT. clinically improving. likely can transition out of ICU soon. Neuro: Hypoxic Ischemic Encephalopathy- resolved Pain secondary to rib fracures from CPR - oxycodone and dilaudid prn for pain - cog eval Resp: Acute hypoxic and hypercarbic respiratory failure- resolving. Massive Pulmonary Embolism - d/c inhaled flolan today - wean nc for goal spo2 > 92% - aggressive pulmonary toilet - PT consult - OOB CV: s/p PEA Arrest Massive Pulmonary Embolism Cardiogenic Shock- resolved Cor Pulmonale- resolved Acute Right Ventricular failure- improving. - off vasopressors and inotropes - start sildenafil 10mg po q8hr: would ideally like to be between 20q8 and 40q8 for therapeutic benefit. may not need this long-term, but would prefer to keep it for 4-6 weeks if tolerated and then could consider weaning as an outpatient. - will need repeat 2d echo to evaluate for chronic RV changes in 4-6 weeks. - systemic TPA given 06/23. - appears euvolemic. would not add additional diuresis today. Renal: Acute kidney injury- improving - secondary to shock - trend Cr FEN/GI: Acute intravascular volume overload- resolved Acute Liver Injury- resolving. Lactic acidosis- resolved - advance diet as tolerated. - ICU electrolyte protocol - appears euvolemic today. - Acute liver injury is secondary to a combination of shock liver and congestive hepatopathy: improving. - daily cmp, mg, phos. heme/ID: Massive Pulmonary Embolism Community Acquired Beta Strep pneumonia - s/p systemic TPA 06/23 - trend daily coags - watch cbc closely - watch for bleeding - keep on therapeutic lovenox - changed from PO levaquin to IV Ceftriaxone 1gm iv q24h 06/24: needs total 7 day course (1 additional days) Endo: Hyperglycemia of critical illness - SSI Prophylaxis: GI: pepcid iv DVT: SCDs and therapeutic lovenox Lines: 06/23: right IJ TLC: d/c today. 06/23: right radial art line- d/c today. 06/23: [place]: d/c today. Dispo: remain in ICU. will consult hospitalist to assume care.
[2018-06-26] MEDS: Enoxaparin Inj 80 MG/0.8 ML Syringe SQ SCH (10:34)
[2018-06-26] MEDS: Famotidine 20 MG Tablet PO SCH ×2 (10:34→22:21)
[2018-06-26] MEDS: Senna/Docusate Sodium 8.6/50 MG Tablet PO SCH ×2 (10:35→22:20)
[2018-06-26] MEDS: Milrinone Inj 20 MG in Sodium Chlor 0.9% Inj 80 ML IV.CONT SCH (15:41)
--- NOTE | 2018-06-26 16:00 | P.DIET ---
Nutritional Evaluation Screening comments: NPO ALERT X 3 DAYS. Please consult dietitian as needed.
[2018-06-27] MEDS: Oral Hygiene Kit OROPHARYNG SCH ×3 (05:50→16:00)
[2018-06-27] MEDS: Chlorhexidine Gluconate 2% 1 Pack (2 Cloths) TOPICAL SCH (05:51)
[2018-06-27 06:01] LABS: Baso % (Auto) 0.2 % (0.0-2.0); Hematocrit 26.6 % (35.0-46.0); Hemoglobin 8.9 gm/dL (11.6-15.3); Lymph # (Auto) 1.2 th/mm3 (1.0-4.8); Lymph % (Auto) 14.1 % (9.0-44.0); Mean Corpuscular HGB Conc 33.6 % (32.0-36.0); Mean Corpuscular Hemoglobin 29.2 pg (27.0-34.0); Mean Corpuscular Volume 86.9 fL (80.0-100.0); Mean Platelet Volume 7.5 fL (7.0-11.0); Mono # (Auto) 0.6 th/mm3 (0.0-0.9); Mono % (Auto) 6.8 % (0.0-8.0); Neut # (Auto) 6.5 th/mm3 (1.8-7.7); Neut % (Auto) 78.9 % (16.0-70.0); Platelet Count 154 th/mm3 (150-450); Red Blood Count 3.06 mil/mm3 (4.00-5.30); Red Cell Distribution Width 13.4 % (11.6-17.2); White Blood Count 8.2 th/mm3 (4.0-11.0)
[2018-06-27 06:25] LABS: Albumin 1.9 g/dL (3.4-5.0); Anion Gap 14 meq/L (5-15); Aspartate Aminotransferase 52 U/L (15-37); Blood Urea Nitrogen 35 mg/dL (7-18); Calcium 8.2 mg/dL (8.5-10.1); Carbon Dioxide 24.9 meq/L (21.0-32.0); Chloride 101 meq/L (98-107); Glomerular Filtration Rate 38 mL/min (>89); Glucose,Random 69 mg/dL (74-106); Potassium 3.5 meq/L (3.5-5.1); Sodium 140 meq/L (136-145)
[2018-06-27 06:27] LABS: Alanine Aminotransferase 122 U/L (10-53)
[2018-06-27 06:29] LABS: Alkaline Phosphatase 100 U/L (45-117); Total Protein 6.1 g/dL (6.4-8.2)
[2018-06-27 07:06] LABS: INR 0.9 Ratio; Prothrombin Time 9.4 sec (9.8-11.6)
[2018-06-27] MEDS: Senna/Docusate Sodium 8.6/50 MG Tablet PO SCH ×2 (09:20→20:53)
[2018-06-27] MEDS: Chlorhexidine 0.12% Oral Kit 15 ML UDC OROPHARYNG SCH ×2 (09:20→20:53)
[2018-06-27] MEDS: Enoxaparin Inj 80 MG/0.8 ML Syringe SQ SCH (09:20)
[2018-06-27] MEDS: Famotidine 20 MG Tablet PO SCH ×2 (09:20→20:53)
[2018-06-27] MEDS: HYDROmorphone PF Inj 2 MG/ML Vial IV.PUSH PRN ×2 (09:39→20:54)
--- NOTE | 2018-06-27 11:24 | P.PNONC ---
Subjective Interval history: Afebrile. Patient awake and alert. Her daughter is at the bedside. On initial approach patient would only answer my questions with head nods. When asked if she was able to speak she states "yes" and then continues to verbally answer my questions. She reports chest pain with breathing and coughing and is holding a pillow to her chest. She is requesting coffee. Discussed with RN and he is going to call attending to see if her diet may be advanced. She denies any bleeding. Objective Vital Signs/Intake & Output: Vital Signs 06/26/18 11:23 06/26/18 12:00 06/26/18 13:00 Temperature Pulse Rate 108 H 108 H 101 H Respiratory Rate Blood Pressure 143/65 H 168/72 H 160/72 H Pulse Oximetry 93 L 95 97 06/26/18 13:09 06/26/18 14:00 06/26/18 15:00 Temperature Pulse Rate 98 H 100 H 99 H Respiratory Rate 20 Blood Pressure 160/72 H 150/65 H Pulse Oximetry 97 96 06/26/18 16:00 06/26/18 16:31 06/26/18 17:00 Temperature 99.1 F Pulse Rate 101 H 100 H 98 H Respiratory Rate 20 18 Blood Pressure 163/72 H 161/69 H 168/72 H Pulse Oximetry 97 96 96 06/26/18 18:00 06/26/18 19:00 06/26/18 20:00 Temperature 99.2 F Pulse Rate 101 H 105 H 104 H Respiratory Rate 21 28 H 19 Blood Pressure 154/69 H 161/72 H 170/75 H Pulse Oximetry 96 97 97 06/26/18 21:00 06/26/18 21:01 06/26/18 21:24 Temperature Pulse Rate 115 H 117 H 100 H Respiratory Rate 44 H 24 40 H Blood Pressure 184/76 H Pulse Oximetry 81 L 94 L 06/26/18 22:00 06/26/18 23:00 06/27/18 00:00 Temperature 97.8 F Pulse Rate 100 H 96 H 96 H Respiratory Rate 28 H 19 19 Blood Pressure 165/74 H 162/72 H 166/74 H Pulse Oximetry 97 98 98 06/27/18 01:00 06/27/18 02:00 06/27/18 03:00 Temperature Pulse Rate 113 H 109 H 87 Respiratory Rate 28 H 29 H 20 Blood Pressure 168/79 H 162/72 H 145/64 H Pulse Oximetry 94 L 94 L 98 06/27/18 04:00 06/27/18 05:00 06/27/18 06:00 Temperature 99.2 F Pulse Rate 94 H 93 H 101 H Respiratory Rate 20 20 24 Blood Pressure 172/76 H 145/66 H 168/70 H Pulse Oximetry 99 99 97 06/27/18 07:00 06/27/18 07:26 06/27/18 08:00 Temperature Pulse Rate 107 H 97 H Respiratory Rate 20 21 Blood Pressure 154/70 H 166/70 H Pulse Oximetry 98 96 97 06/27/18 09:00 06/27/18 10:00 06/27/18 10:49 Temperature Pulse Rate 96 H 102 H Respiratory Rate 21 23 16 Blood Pressure 157/70 H 174/77 H Pulse Oximetry 98 96 06/27/18 11:00 Temperature Pulse Rate 101 H Respiratory Rate 20 Blood Pressure 169/75 H Pulse Oximetry 95 Intake & Output 06/26/18 06/27/18 06/27/18 18:59 06:59 18:59 Intake Total 336 / 336 120 / 120 Output Total 700 / 700 300 / 300 Balance -364 / -364 -180 / -180 Weight 72.9 kg Intake: IV 336 / 336 Primacor Inj 20 MG In NS Inj 80 100 / 100 ML @ 0.25 MCG/KG/MIN 5.62 mls/ hr IV.CONT .[id number] [facility] Rx#: [id number] Levophed Inj 16 MG In D5W Inj 30 / 30 234 ML @ 2 MCG/MIN 1.87 mls/hr IV.CONT TITRATE PRN Rx#: [id number] Pitressin Inj 40 UNIT In D5W 6 / 6 Inj 98 ML @ 0.04 UNITS/MIN 6 mls/hr IV.CONT TITRATE PRN Rx#: [id number] Rocephin Inj 1,000 MG In NS Inj 100 / 100 100 ML @ 200 mls/hr IV.SIG Q24H [facility] Rx#:[id number] Flolan (30,000 ng/mL) Neb 62.5 100 / 100 ML In NS Inj 37.5 ML @ 5 mls/hr NEB Q8H [facility] Rx#:[id number] Oral 120 / 120 Output: Urine 200 / 200 Urine Amount (Catheter) 500 / 500 300 / 300 Female External 300 / 300 Indwelling Urethral Catheter 500 / 500 Result Diagrams: 06/27/18 05:24 06/27/18 05:24 Laboratory Results: Laboratory Results - last 24 hr 06/27/18 06/27/18 06/27/18 05:24 05:24 05:24 WBC 8.2 RBC 3.06 L Hgb 8.9 L Hct 26.6 L MCV 86.9 MCH 29.2 MCHC 33.6 RDW 13.4 Plt Count 154 MPV 7.5 Prelim Diff (Auto) Slide review pending Neut % (Auto) 78.9 H Lymph % (Auto) 14.1 [place] % (Auto) 6.8 Eos % (Auto) 0.0 Baso % (Auto) 0.2 Neut # (Auto) 6.5 Lymph # (Auto) 1.2 [place] # (Auto) 0.6 Eos # (Auto) 0.0 Baso # (Auto) 0.0 WBC Differential . Diff Scan Auto diff confirmed Differential Comment . PT 9.4 L INR 0.9 Sodium 140 Potassium 3.5 Chloride 101 Carbon Dioxide 24.9 Anion Gap 14 BUN 35 H Creatinine 1.40 H Estimated GFR 38 L Random Glucose 69 L Calcium 8.2 L Total Bilirubin 0.7 AST 52 H ALT 122 H Alkaline Phosphatase 100 Total Protein 6.1 L D Albumin 1.9 L Culture Results: Microbiology 06/23/18 08:50 Aerobic Blood Culture - Preliminary Blood - Peripheral No growth in 4 days Anaerobic Blood Culture - Preliminary No growth in 4 days 06/23/18 09:10 Aerobic Blood Culture - Preliminary Blood - Peripheral No growth in 4 days Anaerobic Blood Culture - Preliminary No growth in 4 days 06/23/18 17:00 Gram Stain - Final Sputum - Endotracheal Sputum Culture - Final Rare growth normal respiratory loretta Medications: Active Medications Generic Name Dose Route Start Last Admin Trade Name Freq PRN Reason Stop Dose Admin Acetaminophen 650 mg 06/18/18 15:44 06/23/18 16:30 Tylenol PO 650 mg Q4H PRN Administration Temp > 100.4 Al Hydroxide/Mg Hydroxide 30 ml 06/18/18 15:44 06/22/18 16:37 Milk Of Magnesia Liq PO 30 ml Q12H PRN Administration Mild Constipation Albuterol 1 ampul 06/18/18 20:00 06/27/18 07:31 Duoneb Neb ([facility]) NEB 1 ampul Q6HR WHILE AWAKE NEB [facility] Administration Chlorhexidine Gluconate 15 ml 06/23/18 20:00 06/27/18 09:20 Peridex 0.12% Oral Kit OROPHARYNG Not Given BID@0800,2000 [facility] Chlorhexidine Gluconate 3 pack 06/24/18 04:00 06/27/18 05:51 Chlorhexidine 2% Cloth TOPICAL 06/29/18 03:59 3 pack DAILY@0400 [facility] Administration Enoxaparin Sodium 75 mg 06/26/18 09:00 06/27/18 09:20 Lovenox Inj SQ 75 mg Q24H [facility] Administration Famotidine 10 mg 06/23/18 21:00 06/27/18 09:20 Pepcid PO 10 mg BID [facility] Administration Hydromorphone HCl 0.25 mg 06/25/18 13:30 06/27/18 09:39 Dilaudid Pf Inj IV.PUSH 0.25 mg Q4H PRN Administration PAIN 6-10 IF NO PO Ceftriaxone Sodium 1,000 mg/ 100 mls @ 200 mls/hr 06/24/18 13:00 06/26/18 14: 18 Sodium Chloride IV.SIG 06/27/18 12:59 Infused Q24H [facility] Infusion Miscellaneous 1 each 06/26/18 22:05 06/26/18 22:20 Pill Splitter OTHER 1 each UNSCH PRN Administration PILL SPLITTER Miscellaneous Medication 1 each 06/23/18 12:00 06/27/18 05:50 OROPHARYNG Not Given 0000,0400,1200,1600 [facility] Ondansetron HCl 4 mg 06/18/18 15:51 06/22/18 16:01 Zofran Odt PO 4 mg Q6H PRN Administration NAUSEA Oxycodone HCl 5 mg 06/25/18 13:10 06/26/18 14:58 Roxicodone PO 5 mg Q4H PRN Administration pain 1-5 Senna/Docusate Sodium 1 tab 06/18/18 21:00 06/27/18 09:20 Maria Luisa-Colace PO Not Given BID [facility] Sildenafil Citrate 10 mg 06/26/18 08:00 06/27/18 05:50 Revatio PO 10 mg Q8HR [facility] Administration Sodium Chloride 2 ml 06/23/18 21:00 06/27/18 09:20 Ns Flush IV.FLUSH 2 ml BID [facility] Administration Objective Remarks: GENERAL: Ill-appearing elderly female patient, in no acute distress. SKIN: Warm and dry. HEAD: Normocephalic. EYES: No scleral icterus. No injection or drainage. NECK: Supple, trachea midline. CARDIOVASCULAR: Regular rate and rhythm without murmurs. RESPIRATORY: Breath sounds equal bilaterally. Nonlabored at rest. GASTROINTESTINAL: Abdomen soft, non-tender, nondistended. EXTREMITIES: No cyanosis, or edema. MUSCULOSKELETAL: Adequate muscle tone. NEUROLOGICAL: No obvious focal deficit. Awake, alert, and oriented x3. PSYCHIATRIC: Appropriate mood and affect; insight and judgment normal. Assessment/Plan - Plan 62-year-old female admitted with shortness of breath found to have a pulmonary embolism. She was started on anticoagulation but unfortunately developed worsening pulmonary embolism and went into PEA twice and was successfully resuscitated. 1. Pulmonary embolism, status post PEA x2 with successful resuscitation. Continues with chest wall pain, patient has fractured ribs from CPR. She denies hemoptysis. Continue therapeutic Lovenox. 2. Monitor for bleeding. Monitor CBC, coags. 3. Supportive care. - Attending Statement The exam, history, and the medical decision-making described in the above note were completed with the assistance of the mid-level provider. I reviewed and agree with the findings presented. I attest that I had a [id number] encounter with the patient on the same day, and personally performed and documented my assessment and findings in the medical record. Patient seen and examined with family at bedside. She complains of pains in the chest post compression. She is recovering slowly post extubation. No signs of bleeding. We discussed the events over the weekend leading up to the use of systemic thrombolysis. She will need to continue anticoagulant therapy. She is therapeutic on low molecular weight heparin. Hemoglobin improved at 8.9, creatinine continues to go down, clinically improving. Continue to follow peripherally.
--- NOTE | 2018-06-27 16:39 | P.PNIM ---
Subjective Interval history: Pt complains of chest discomfort with taking deeper breaths She has a difficult time coughing due to pain Afebrile Pt is using [employer] for her secretions as she has increased pain with coughing Physical Exam Vital signs: Vital Signs 06/26/18 16:31 06/26/18 17:00 06/26/18 18:00 Temperature Pulse Rate 100 H 98 H 101 H Respiratory Rate 20 18 21 Blood Pressure 161/69 H 168/72 H 154/69 H Pulse Oximetry 96 96 96 06/26/18 19:00 06/26/18 20:00 06/26/18 21:00 Temperature 99.2 F Pulse Rate 105 H 104 H 115 H Respiratory Rate 28 H 19 44 H Blood Pressure 161/72 H 170/75 H Pulse Oximetry 97 97 81 L 06/26/18 21:01 06/26/18 21:24 06/26/18 22:00 Temperature Pulse Rate 117 H 100 H 100 H Respiratory Rate 24 40 H 28 H Blood Pressure 184/76 H 165/74 H Pulse Oximetry 94 L 97 06/26/18 23:00 06/27/18 00:00 06/27/18 01:00 Temperature 97.8 F Pulse Rate 96 H 96 H 113 H Respiratory Rate 19 19 28 H Blood Pressure 162/72 H 166/74 H 168/79 H Pulse Oximetry 98 98 94 L 06/27/18 02:00 06/27/18 03:00 06/27/18 04:00 Temperature 99.2 F Pulse Rate 109 H 87 94 H Respiratory Rate 29 H 20 20 Blood Pressure 162/72 H 145/64 H 172/76 H Pulse Oximetry 94 L 98 99 06/27/18 05:00 06/27/18 06:00 06/27/18 07:00 Temperature Pulse Rate 93 H 101 H 107 H Respiratory Rate 20 24 20 Blood Pressure 145/66 H 168/70 H 154/70 H Pulse Oximetry 99 97 98 06/27/18 07:26 06/27/18 08:00 06/27/18 09:00 Temperature Pulse Rate 97 H 96 H Respiratory Rate 21 21 Blood Pressure 166/70 H 157/70 H Pulse Oximetry 96 97 98 06/27/18 10:00 06/27/18 10:49 06/27/18 11:00 Temperature Pulse Rate 102 H 101 H Respiratory Rate 23 16 20 Blood Pressure 174/77 H 169/75 H Pulse Oximetry 96 95 06/27/18 11:27 Temperature Pulse Rate 98 H Respiratory Rate 18 Blood Pressure Pulse Oximetry Intake & Output 06/26/18 06/27/18 06/27/18 18:59 06:59 18:59 Intake Total 336 / 336 120 / 120 Output Total 700 / 700 300 / 300 Balance -364 / -364 -180 / -180 Weight 72.9 kg Intake: IV 336 / 336 Primacor Inj 20 MG In NS Inj 80 100 / 100 ML @ 0.25 MCG/KG/MIN 5.62 mls/ hr IV.CONT .[id number] MARU Rx#: [id number] Levophed Inj 16 MG In D5W Inj 30 / 30 234 ML @ 2 MCG/MIN 1.87 mls/hr IV.CONT TITRATE PRN Rx#: [id number] Pitressin Inj 40 UNIT In D5W 6 / 6 Inj 98 ML @ 0.04 UNITS/MIN 6 mls/hr IV.CONT TITRATE PRN Rx#: [id number] Rocephin Inj 1,000 MG In NS Inj 100 / 100 100 ML @ 200 mls/hr IV.SIG Q24H MARU Rx#:[id number] Flolan (30,000 ng/mL) Neb 62.5 100 / 100 ML In NS Inj 37.5 ML @ 5 mls/hr NEB Q8H MARU Rx#:[id number] Oral 120 / 120 Output: Urine 200 / 200 Urine Amount (Catheter) 500 / 500 300 / 300 Female External 300 / 300 Indwelling Urethral Catheter 500 / 500 Narrative: GENERAL: NAD, AAOx3, appears painful CARDIOVASCULAR: Regular rate and rhythm RESPIRATORY: diminished bilateral lower lobes, poor inspiratory effort GASTROINTESTINAL: Abdomen soft, non-tender, nondistended. bowel sounds MUSCULOSKELETAL: Extremities without clubbing, cyanosis, or edema. NEURO: Alert & Oriented. Moves all ext x4 - Urinary Catheter Management Indwelling Urethral Catheter Cath placed during this visit: yes, but has since been removed by the nurse Reason for continuing: Decision to DC catheter Insertion date: 06/23/18 Insertion time: 09:30 Removal date: 06/26/18 Removal time: 07:45 Female External Cath placed during this visit: no Results - Labs CBC & Chem 7: 06/30/18 02:55 06/30/18 02:55 Laboratory Results - last 24 hr 06/27/18 06/27/18 06/27/18 05:24 05:24 05:24 WBC 8.2 RBC 3.06 L Hgb 8.9 L Hct 26.6 L MCV 86.9 MCH 29.2 MCHC 33.6 RDW 13.4 Plt Count 154 MPV 7.5 Prelim Diff (Auto) Slide review pending Neut % (Auto) 78.9 H Lymph % (Auto) 14.1 [place] % (Auto) 6.8 Eos % (Auto) 0.0 Baso % (Auto) 0.2 Neut # (Auto) 6.5 Lymph # (Auto) 1.2 [place] # (Auto) 0.6 Eos # (Auto) 0.0 Baso # (Auto) 0.0 WBC Differential . Diff Scan Auto diff confirmed Differential Comment . PT 9.4 L INR 0.9 Sodium 140 Potassium 3.5 Chloride 101 Carbon Dioxide 24.9 Anion Gap 14 BUN 35 H Creatinine 1.40 H Estimated GFR 38 L Random Glucose 69 L Calcium 8.2 L Total Bilirubin 0.7 AST 52 H ALT 122 H Alkaline Phosphatase 100 Total Protein 6.1 L D Albumin 1.9 L Microbiology 06/23/18 08:50 Blood - Peripheral Aerobic Blood Culture - Preliminary No growth in 4 days 06/23/18 08:50 Blood - Peripheral Anaerobic Blood Culture - Preliminary No growth in 4 days 06/23/18 09:10 Blood - Peripheral Aerobic Blood Culture - Preliminary No growth in 4 days 06/23/18 09:10 Blood - Peripheral Anaerobic Blood Culture - Preliminary No growth in 4 days - Imaging Abdomen/Pelvis CT 06/18/18 12:21 CONCLUSION: 1. There is airspace consolidation in the right lower lobe with right pleural effusion. This could represent an infectious process in the appropriate clinical setting. Aspiration is another consideration. Changes at the left lung base may represent atelectasis or mild consolidation. 2. There is a 2.5 cm nodular structure in the left adnexa in the expected location of the left ovary. It is not certain if the left ovary remains present and patient reports prior surgical removal of the uterus. Therefore, on an outpatient elective basis, consider further characterization with transabdominal and transvaginal pelvis ultrasound. 3. Nonacute findings include small hiatal hernia, cholelithiasis, and moderate atherosclerotic disease. Chest X-Ray 06/19/18 08:00 CONCLUSION: There is bibasilar airspace consolidation with likely a small right pleural effusion. Given the distribution, aspiration should be a consideration. Chest X-Ray 06/20/18 08:00 CONCLUSION: Stable chest with bibasilar parenchymal changes and airspace disease worse on the right. Probable trace right pleural effusion. Chest CTA 06/21/18 00:00 CONCLUSION: 1. Extensive bilateral pulmonary emboli. 2. Consolidation in both lung bases right greater than left. 3. Small bilateral pleural effusions right greater than left. Venous Doppler Study 06/21/18 00:00 CONCLUSION: 1. Positive deep venous thrombosis. Abdomen/Pelvis/Transvag US 06/22/18 00:00 CONCLUSION: 1. Normal left ovary by ultrasound. 2. Small cystic area region of the cervix measuring 4 mm, nonspecific Chest X-Ray 06/23/18 09:14 CONCLUSION: 1. Bibasilar patchiness consistent with probable pneumonia. Clinical correlation is recommended. 2. Multiple tubes and lines are stable. Chest X-Ray 06/24/18 05:00 CONCLUSION: Left lower lobe atelectasis versus pneumonia. The findings have worsened when compared with the prior examination. Bilateral pleural effusions Endotracheal tube at the ritu as above Head CT 06/25/18 00:00 CONCLUSION: 1. Unremarkable CT scan of the brain for patient's age. Chest X-Ray 06/26/18 05:00 CONCLUSION: Interval extubation. Stable aeration. Assessment and Plan - Assessment (1) Pulmonary emboli Code(s): I26.99 - Other pulmonary embolism without acute cor pulmonale Status : Acute Plan: Pulmonary Emboli, bilateral RLE DVT - The pt is a 62 y/o female with recurrent UTIs. Patient was treated for UTI 05/28/18 with Macrobid x 7 days then followed up with her PCP 06/03 and was treated with cipro 500mg BID for 10 days. Patient presented to ER on 06/10/18 for abdominal pain diagnosed with dysuria discharged with Percocet and Zofran. Patient returned to the ER on 06/18/18 with complaints of severe pain located in the right flank worse with taking a deep breath with associated N/V. Patient also endorses SOB, night sweats and decreased appetite for the past two weeks. - CT scan Abd/pelvis (06/18/18) 1. There is airspace consolidation in the right lower lobe with right pleural effusion. Changes at the left lung base may represent atelectasis or mild consolidation. 2. There is a 2.5 cm nodular structure in the left adnexa in the expected location of the left ovary. It is not certain if the left ovary remains present and patient reports prior surgical removal of the uterus. 3. Nonacute findings include small hiatal hernia, cholelithiasis, and moderate atherosclerotic disease. - CXR (06/19) --> There is bibasilar airspace consolidation with likely a small right pleural effusion. Given the distribution, aspiration should be a consideration. - On 06/21 pt complained of cramping and swelling in right leg. - LE US (06/21/18) --> acute right leg DVT - CTA Thorax (06/21/18) --> Extensive bilateral pulmonary emboli. Consolidation in both lung bases right greater than left. Small bilateral pleural effusions right greater than left. - Pt was started on therapeutic Lovenox. - Heme/Onc is following. s/p PEA Arrest Cardiogenic Shock- resolved Cor Pulmonale- resolved Acute Right Ventricular failure- improving. - On 06/23/18 pt was found unresponsive in PEA arrest. CODE BLUE called. Pt was intubated and given Epi x 2 with return of spontaneous circulation. Pt arrested a second time in ICU requiring another round of epi and CPR with return of spontaneous circulation - Bedside critical care echo, severe acute RV failure with RVSP > 70 mmHg, + McConnel's Sign. obliterated LV cavity with bowing of the intraventricular septum into the LV. dilated IVC. severe TR. - Pt received emergent systemic TPA on 06/23/18 - Pt also received inhaled Flolan - Pt required pressors - Pt was able to be weaned off vasopressors and inotropes - Pt was started on Sildenafil 10mg po q8hr on 06/26/18. - This is to be titrated up ideally to be between 20q8 for therapeutic benefit. Pt may not need this long-term, but would prefer to keep it for 4-6 weeks if tolerated and then could consider weaning as an outpatient. - Pt will need repeat 2d echo to evaluate for chronic RV changes in 4-6 weeks. - Pt is on therapeutic Lovenox - Check Rib Xrays today as she has increased pain in her chest with inspiration and cough, likely rib fractures from CPR Acute kidney injury- improving - secondary to shock - Labs are improving. Acute Liver Injury - Acute liver injury is likely secondary to a combination of shock liver and congestive hepatopathy - Labs are improving. - advance diet as tolerated. - daily cmp, mg, phos. Hyperglycemia of critical illness - SSI Right lung pneumonia - ?CAP vs pna secondary to splinting from PE pain - Pt was changed from PO Levaquin to IV Ceftriaxone 1gm iv q24h given through - Duonebs Q6H and PRN ?Left adnexal mass? - Pt had JONNY/BSO in 2007 but the op note suggests a 3-4cm left pelvic sidewall mass considered a "fibroid" - Transvag. u/s --> . Normal left ovary by ultrasound. Small cystic area region of the cervix measuring 4 mm, nonspecific - May need to discuss the case with Dr. Gould who did the pts original surgery (2) DVT (deep venous thrombosis) Code(s): I82.409 - Acute embolism and thrombosis of unspecified deep veins of unspecified lower extremity Status: Acute (3) Adnexal mass Code(s): N94.9 - Unspecified condition associated with female genital organs and menstrual cycle Status: Acute - Attending Attestation Patient examined. Assessment and plan formulated with Laurie Jackson PA-C. I agree with the above.
--- NOTE | 2018-06-27 17:32 | XR ---
EXAM DATE: 06/27/2018 12:00 AM EDT AGE/SEX: 62 years / Female INDICATIONS: Chest and rib pain post CPR. CLINICAL DATA: This is the patient's initial encounter. Patient reports that signs and symptoms have been present for 1 day and indicates a pain score of 7/10. MEDICAL/SURGICAL HISTORY: None. . Hysterectomy. Bladder surgery. COMPARISON: [facility] – [place], CHEST 1V SINGLE AP, 06/26/2018. . FINDINGS: There is no evidence of displaced fracture. No destructive lesions or areas of periosteal thickening are seen. There are multiple scattered patchy infiltrates in both lung chavez. There is no evidence of pneumothorax. CONCLUSION: No definite rib fractures are demonstrated. Electronically signed by: Jhonny Lane MD 06/27/2018 5:30 PM EDT
--- NOTE | 2018-06-27 19:45 | P.PNPL ---
Subjective Interval history: 62 YOWF with Recurrent UTI, Rt pn, pl effusion Legionella and Pneumococcal ag negative found to have Bilat PE and DVT Extubated On NC Weak, mild sob Physical Exam Vital signs: Vital Signs 06/26/18 20:00 06/26/18 21:00 06/26/18 21:01 Temperature 99.2 F Pulse Rate 104 H 115 H 117 H Respiratory Rate 19 44 H 24 Blood Pressure 170/75 H 184/76 H Pulse Oximetry 97 81 L 94 L 06/26/18 21:24 06/26/18 22:00 06/26/18 23:00 Temperature Pulse Rate 100 H 100 H 96 H Respiratory Rate 40 H 28 H 19 Blood Pressure 165/74 H 162/72 H Pulse Oximetry 97 98 06/27/18 00:00 06/27/18 01:00 06/27/18 02:00 Temperature 97.8 F Pulse Rate 96 H 113 H 109 H Respiratory Rate 19 28 H 29 H Blood Pressure 166/74 H 168/79 H 162/72 H Pulse Oximetry 98 94 L 94 L 06/27/18 03:00 06/27/18 04:00 06/27/18 05:00 Temperature 99.2 F Pulse Rate 87 94 H 93 H Respiratory Rate 20 20 20 Blood Pressure 145/64 H 172/76 H 145/66 H Pulse Oximetry 98 99 99 06/27/18 06:00 06/27/18 07:00 06/27/18 07:26 Temperature Pulse Rate 101 H 107 H Respiratory Rate 24 20 Blood Pressure 168/70 H 154/70 H Pulse Oximetry 97 98 96 06/27/18 08:00 06/27/18 09:00 06/27/18 10:00 Temperature Pulse Rate 97 H 96 H 102 H Respiratory Rate 21 21 23 Blood Pressure 166/70 H 157/70 H 174/77 H Pulse Oximetry 97 98 96 06/27/18 10:49 06/27/18 11:00 06/27/18 11:27 Temperature Pulse Rate 101 H 98 H Respiratory Rate 16 20 18 Blood Pressure 169/75 H Pulse Oximetry 95 06/27/18 12:00 06/27/18 12:01 06/27/18 13:00 Temperature 98.2 F Pulse Rate 107 H 107 H 105 H Respiratory Rate 31 H 26 H 27 H Blood Pressure 143/60 H 164/71 H Pulse Oximetry 96 97 97 06/27/18 14:00 06/27/18 15:00 06/27/18 16:00 Temperature Pulse Rate 105 H 111 H 105 H Respiratory Rate 22 27 H 22 Blood Pressure 166/73 H 181/79 H 140/65 Pulse Oximetry 96 95 96 06/27/18 17:00 06/27/18 17:28 06/27/18 18:00 Temperature 98.2 F Pulse Rate 100 H 104 H 109 H Respiratory Rate 22 25 H 38 H Blood Pressure 140/69 161/65 H 176/81 H Pulse Oximetry 98 99 98 06/27/18 19:00 06/27/18 19:01 06/27/18 19:38 Temperature Pulse Rate 113 H 112 H Respiratory Rate 29 H 28 H 24 Blood Pressure 155/66 H Pulse Oximetry 97 99 Intake & Output 06/27/18 06/27/18 06/28/18 06:59 18:59 06:59 Intake Total 120 / 120 900 / 900 Output Total 300 / 300 400 / 400 Balance -180 / -180 500 / 500 Weight 72.9 kg Intake: Oral 120 / 120 900 / 900 Output: Urine 400 / 400 Urine Amount (Catheter) 300 / 300 Female External 300 / 300 Other: Date of Last Bowel Movement 06/18/18 GENERAL: MBMN Weak, mild sob SKIN: Warm and dry. HEAD: Normocephalic. EYES: No scleral icterus. No injection or drainage. NECK: Supple, trachea midline. No JVD or lymphadenopathy. CARDIOVASCULAR: Regular rate and rhythm without murmurs, gallops, or rubs. RESPIRATORY: Breath sounds equal bilaterally. No accessory muscle use. GASTROINTESTINAL: Abdomen soft, non-tender, nondistended. MUSCULOSKELETAL: No cyanosis, or edema. BACK: Nontender without obvious deformity. No CVA tenderness. - Urinary Catheter Management Indwelling Urethral Catheter Cath placed during this visit: yes, but has since been removed by the nurse Reason for continuing: Decision to DC catheter Insertion date: 06/23/18 Insertion time: 09:30 Removal date: 06/26/18 Removal time: 07:45 Female External Cath placed during this visit: no Assessment and Plan - Plan ASSESSMENT AND PLAN: 1. Right lung pneumonia, likely community acquired pneumonia. 2. Pleural effusion, 3. Recurrent UTI, 4. History of hysterectomy. 5. Bilat. PE 6. DVT 7.S/P cardiac arrest PLAN: Supplement 02 Cont Lovenox Cont Abx Monitor Pl effusion Sildenifil tid Encourage PO DW Pt her daughter, sister
[2018-06-28] MEDS: Oral Hygiene Kit OROPHARYNG SCH ×4 (02:49→17:53)
[2018-06-28] MEDS: Chlorhexidine Gluconate 2% 1 Pack (2 Cloths) TOPICAL SCH (05:44)
[2018-06-28] MEDS: HYDROmorphone PF Inj 2 MG/ML Vial IV.PUSH PRN ×2 (07:35→20:25)
[2018-06-28 08:11] LABS: Baso % (Auto) 0.2 % (0.0-2.0); Eos % (Auto) 0.2 % (0.0-4.0); Hematocrit 27.6 % (35.0-46.0); Lymph # (Auto) 1.3 th/mm3 (1.0-4.8); Lymph % (Auto) 19.8 % (9.0-44.0); Mean Corpuscular HGB Conc 32.6 % (32.0-36.0); Mean Corpuscular Hemoglobin 28.5 pg (27.0-34.0); Mean Corpuscular Volume 87.3 fL (80.0-100.0); Mean Platelet Volume 6.9 fL (7.0-11.0); Mono # (Auto) 0.6 th/mm3 (0.0-0.9); Mono % (Auto) 8.7 % (0.0-8.0); Neut # (Auto) 4.6 th/mm3 (1.8-7.7); Neut % (Auto) 71.1 % (16.0-70.0); Platelet Count 184 th/mm3 (150-450); Red Blood Count 3.16 mil/mm3 (4.00-5.30); Red Cell Distribution Width 13.6 % (11.6-17.2); White Blood Count 6.4 th/mm3 (4.0-11.0)
[2018-06-28 08:21] LABS: Prothrombin Time 9.9 sec (9.8-11.6)
[2018-06-28] MEDS: Enoxaparin Inj 80 MG/0.8 ML Syringe SQ SCH (08:36)
[2018-06-28] MEDS: Famotidine 20 MG Tablet PO SCH ×2 (08:36→20:15)
[2018-06-28] MEDS: Senna/Docusate Sodium 8.6/50 MG Tablet PO SCH ×2 (08:37→20:16)
[2018-06-28 08:42] LABS: Alanine Aminotransferase 96 U/L (10-53); Albumin 1.8 g/dL (3.4-5.0); Anion Gap 8 meq/L (5-15); Aspartate Aminotransferase 51 U/L (15-37); Blood Urea Nitrogen 28 mg/dL (7-18); Calcium 7.8 mg/dL (8.5-10.1); Carbon Dioxide 30.7 meq/L (21.0-32.0); Chloride 101 meq/L (98-107); Glomerular Filtration Rate 44 mL/min (>89); Glucose,Random 101 mg/dL (74-106); Potassium 3.3 meq/L (3.5-5.1); Sodium 140 meq/L (136-145)
[2018-06-28 08:44] LABS: Alkaline Phosphatase 137 U/L (45-117); Total Protein 5.7 g/dL (6.4-8.2)
[2018-06-28] MEDS: Chlorhexidine 0.12% Oral Kit 15 ML UDC OROPHARYNG SCH ×2 (11:07→20:16)
[2018-06-28] MEDS ORDERED: Potassium Chloride 25 MEQ Effervescent Tablet PO ONE (12:52)
--- NOTE | 2018-06-28 14:07 | P.PNIM ---
Subjective Interval history: Pt feeling constipated and had an episode of vomiting today after taking Lactulose. She is passing some gas. Pt continues to have chest discomfort with deep breathing or coughing. Afebrile Physical Exam Vital signs: Vital Signs 06/27/18 15:00 06/27/18 16:00 06/27/18 17:00 Temperature 98.2 F Pulse Rate 111 H 105 H 100 H Respiratory Rate 27 H 22 22 Blood Pressure 181/79 H 140/65 140/69 Pulse Oximetry 95 96 98 06/27/18 17:28 06/27/18 18:00 06/27/18 19:00 Temperature Pulse Rate 104 H 109 H 113 H Respiratory Rate 25 H 38 H 29 H Blood Pressure 161/65 H 176/81 H Pulse Oximetry 99 98 97 06/27/18 19:01 06/27/18 19:38 06/27/18 20:00 Temperature 98.2 F Pulse Rate 112 H 107 H Respiratory Rate 28 H 24 23 Blood Pressure 155/66 H 160/67 H Pulse Oximetry 99 97 06/27/18 20:49 06/27/18 21:00 06/27/18 21:36 Temperature Pulse Rate 106 H Respiratory Rate 17 24 Blood Pressure 144/65 H Pulse Oximetry 97 97 06/27/18 22:00 06/27/18 23:00 06/28/18 00:00 Temperature 98 F Pulse Rate 105 H 102 H 102 H Respiratory Rate 27 H 28 H 23 Blood Pressure 125/57 L 134/60 140/64 Pulse Oximetry 96 95 95 06/28/18 01:00 06/28/18 02:00 06/28/18 02:01 Temperature Pulse Rate 94 H 102 H 101 H Respiratory Rate 26 H 25 H 23 Blood Pressure 127/56 L 155/70 H Pulse Oximetry 97 91 L 93 L 06/28/18 03:00 06/28/18 04:00 06/28/18 05:00 Temperature 98 F Pulse Rate 92 H 94 H 94 H Respiratory Rate 31 H 24 30 H Blood Pressure 145/63 H 150/70 H 169/77 H Pulse Oximetry 88 L 100 97 06/28/18 06:00 06/28/18 06:01 06/28/18 07:00 Temperature Pulse Rate 91 H 88 84 Respiratory Rate 21 38 H 22 Blood Pressure 172/70 H 140/63 Pulse Oximetry 100 95 98 06/28/18 08:00 10/09/18 09:00 06/28/18 10:00 Temperature 98.2 F Pulse Rate 86 91 H 102 H Respiratory Rate 17 18 20 Blood Pressure 158/72 H 148/67 H 118/59 L Pulse Oximetry 97 81 L 99 06/28/18 11:00 06/28/18 12:00 06/28/18 13:55 Temperature 98.1 F Pulse Rate 104 H 102 H 108 H Respiratory Rate 20 21 25 H Blood Pressure 141/62 H 156/74 H Pulse Oximetry 97 98 Intake & Output 06/27/18 06/28/18 06/28/18 18:59 06:59 18:59 Intake Total 900 / 900 100 / 100 Output Total 400 / 400 Balance 500 / 500 100 / 100 Weight 72.5 kg Intake: Oral 900 / 900 100 / 100 Output: Urine 400 / 400 Other: # Voids 4 # Incontinent Voids 3 Date of Last Bowel Movement 06/18/18 06/18/18 06/18/18 Narrative: GENERAL: NAD, AAOx3, appears painful CARDIOVASCULAR: Regular rate and rhythm RESPIRATORY: diminished bilateral lower lobes, poor inspiratory effort GASTROINTESTINAL: Abdomen soft, non-tender, nondistended. bowel sounds MUSCULOSKELETAL:Bilateral LE edema. NEURO: Alert & Oriented. Moves all ext x4 - Urinary Catheter Management Indwelling Urethral Catheter Cath placed during this visit: yes, but has since been removed by the nurse Reason for continuing: Decision to DC catheter Insertion date: 06/23/18 Insertion time: 09:30 Removal date: 06/26/18 Removal time: 07:45 Female External Cath placed during this visit: no Results - Labs CBC & Chem 7: 06/30/18 02:55 06/30/18 02:55 Laboratory Results - last 24 hr 06/28/18 06/28/18 06/28/18 07:15 07:15 07:15 WBC 6.4 RBC 3.16 L Hgb 9.0 L Hct 27.6 L MCV 87.3 MCH 28.5 MCHC 32.6 RDW 13.6 Plt Count 184 MPV 6.9 L Neut % (Auto) 71.1 H Lymph % (Auto) 19.8 [place] % (Auto) 8.7 H Eos % (Auto) 0.2 Baso % (Auto) 0.2 Neut # (Auto) 4.6 Lymph # (Auto) 1.3 [place] # (Auto) 0.6 Eos # (Auto) 0.0 Baso # (Auto) 0.0 WBC Differential . Differential Comment Auto diff final PT 9.9 INR 1.0 Sodium 140 Potassium 3.3 L Chloride 101 Carbon Dioxide 30.7 Anion Gap 8 BUN 28 H Creatinine 1.23 H Estimated GFR 44 L Random Glucose 101 Calcium 7.8 L Total Bilirubin 0.6 AST 51 H ALT 96 H Alkaline Phosphatase 137 H Total Protein 5.7 L Albumin 1.8 L Microbiology 06/23/18 08:50 Blood - Peripheral Aerobic Blood Culture - Final No growth in 5 days 06/23/18 08:50 Blood - Peripheral Anaerobic Blood Culture - Final No growth in 5 days 06/23/18 09:10 Blood - Peripheral Aerobic Blood Culture - Final No growth in 5 days 06/23/18 09:10 Blood - Peripheral Anaerobic Blood Culture - Final No growth in 5 days - Imaging Impressions Ribs X-Ray 06/27/18 00:00 CONCLUSION: No definite rib fractures are demonstrated. Assessment and Plan - Assessment (1) Pulmonary emboli Code(s): I26.99 - Other pulmonary embolism without acute cor pulmonale Status : Acute Plan: Pulmonary Emboli, bilateral RLE DVT - The pt is a 62 y/o female with recurrent UTIs. Patient was treated for UTI 05/28/18 with Macrobid x 7 days then followed up with her PCP 06/03 and was treated with cipro 500mg BID for 10 days. Patient presented to ER on 06/10/18 for abdominal pain diagnosed with dysuria discharged with Percocet and Zofran. Patient returned to the ER on 06/18/18 with complaints of severe pain located in the right flank worse with taking a deep breath with associated N/V. Patient also endorses SOB, night sweats and decreased appetite for the past two weeks. - CT scan Abd/pelvis (06/18/18) 1. There is airspace consolidation in the right lower lobe with right pleural effusion. Changes at the left lung base may represent atelectasis or mild consolidation. 2. There is a 2.5 cm nodular structure in the left adnexa in the expected location of the left ovary. It is not certain if the left ovary remains present and patient reports prior surgical removal of the uterus. 3. Nonacute findings include small hiatal hernia, cholelithiasis, and moderate atherosclerotic disease. - CXR (06/19) --> There is bibasilar airspace consolidation with likely a small right pleural effusion. Given the distribution, aspiration should be a consideration. - On 06/21 pt complained of cramping and swelling in right leg. - LE US (06/21/18) --> acute right leg DVT - CTA Thorax (06/21/18) --> Extensive bilateral pulmonary emboli. Consolidation in both lung bases right greater than left. Small bilateral pleural effusions right greater than left. - Pt was started on therapeutic Lovenox. - Heme/Onc is following. - Pt with some constipation and nausea/vomiting. Obtain KUB today. Laxatives PRN s/p PEA Arrest Cardiogenic Shock- resolved Cor Pulmonale- resolved Acute Right Ventricular failure- improving. - On 06/23/18 pt was found unresponsive in PEA arrest. CODE BLUE called. Pt was intubated and given Epi x 2 with return of spontaneous circulation. Pt arrested a second time in ICU requiring another round of epi and CPR with return of spontaneous circulation - Bedside critical care echo, severe acute RV failure with RVSP > 70 mmHg, + McConnel's Sign. obliterated LV cavity with bowing of the intraventricular septum into the LV. dilated IVC. severe TR. - Pt received emergent systemic TPA on 06/23/18 - Pt also received inhaled Flolan - Pt required pressors - Pt was able to be weaned off vasopressors and inotropes - Pt was started on Sildenafil 10mg po q8hr on 06/26/18. - This is to be titrated up ideally to be between 20q8 for therapeutic benefit. Pt may not need this long-term, but would prefer to keep it for 4-6 weeks if tolerated and then could consider weaning as an outpatient. - Pt will need repeat 2d echo to evaluate for chronic RV changes in 4-6 weeks. - Pt is on therapeutic Lovenox - Rib Xrays were negative for rib fractures. Pts pain is likely related to chest wall bruising/strain secondary to the CPR Acute kidney injury- improving - secondary to shock - Labs are improving. Acute Liver Injury - Acute liver injury is likely secondary to a combination of shock liver and congestive hepatopathy - Labs are improving. - advance diet as tolerated. - daily cmp, mg, phos. Hyperglycemia of critical illness - SSI Right lung pneumonia - ?CAP vs pna secondary to splinting from PE pain - Pt was changed from PO Levaquin to IV Ceftriaxone 1gm iv q24h given through - Duonebs Q6H and PRN ?Left adnexal mass? - Pt had JONNY/BSO in 2007 but the op note suggests a 3-4cm left pelvic sidewall mass considered a "fibroid" - Transvag. u/s --> . Normal left ovary by ultrasound. Small cystic area region of the cervix measuring 4 mm, nonspecific - May need to discuss the case with Dr. Gould who did the pts original surgery (2) DVT (deep venous thrombosis) Code(s): I82.409 - Acute embolism and thrombosis of unspecified deep veins of unspecified lower extremity Status: Acute (3) Adnexal mass Code(s): N94.9 - Unspecified condition associated with female genital organs and menstrual cycle Status: Acute - Attending Attestation Patient examined. Assessment and plan formulated with Laurie Jackson PA-C. I agree with the above.
--- NOTE | 2018-06-28 16:30 | XR ---
EXAM DATE: 06/28/2018 12:00 AM EDT AGE/SEX: 62 years / Female INDICATIONS: Constipation. CLINICAL DATA: This is the patient's subsequent encounter. Patient reports that signs and symptoms h ave been present for 1 week and indicates a pain score of 0/10. MEDICAL/SURGICAL HISTORY: Herpes. Hysterectomy. COMPARISON: No prior exams available for comparison. FINDINGS: The abdominal bowel gas pattern is normal. There is a moderate amount of stool throughout the colon. No abnormal dilatation of the large or small bowel. No abnormal masses, calcifications, or organomeg héctor is seen. The osseous structures are unremarkable. CONCLUSION: Benign-appearing abdomen. Electronically signed by: Jhonny Lane MD 06/28/2018 4:29 PM EDT
--- NOTE | 2018-06-28 18:52 | P.PNPL ---
Subjective Interval history: 62 YOWF with Recurrent UTI, Rt pn, pl effusion Legionella and Pneumococcal ag negative found to have Bilat PE and DVT On NC Weak, mild sob Up in chair Appetite better Physical Exam Vital signs: Vital Signs 06/27/18 19:00 06/27/18 19:01 06/27/18 19:38 Temperature Pulse Rate 113 H 112 H Respiratory Rate 29 H 28 H 24 Blood Pressure 155/66 H Pulse Oximetry 97 99 06/27/18 20:00 06/27/18 20:49 06/27/18 21:00 Temperature 98.2 F Pulse Rate 107 H 106 H Respiratory Rate 23 17 Blood Pressure 160/67 H 144/65 H Pulse Oximetry 97 97 97 06/27/18 21:36 06/27/18 22:00 06/27/18 23:00 Temperature Pulse Rate 105 H 102 H Respiratory Rate 24 27 H 28 H Blood Pressure 125/57 L 134/60 Pulse Oximetry 96 95 06/28/18 00:00 06/28/18 01:00 06/28/18 02:00 Temperature 98 F Pulse Rate 102 H 94 H 102 H Respiratory Rate 23 26 H 25 H Blood Pressure 140/64 127/56 L Pulse Oximetry 95 97 91 L 06/28/18 02:01 06/28/18 03:00 06/28/18 04:00 Temperature 98 F Pulse Rate 101 H 92 H 94 H Respiratory Rate 23 31 H 24 Blood Pressure 155/70 H 145/63 H 150/70 H Pulse Oximetry 93 L 88 L 100 06/28/18 05:00 06/28/18 06:00 06/28/18 06:01 Temperature Pulse Rate 94 H 91 H 88 Respiratory Rate 30 H 21 38 H Blood Pressure 169/77 H 172/70 H Pulse Oximetry 97 100 95 06/28/18 07:00 06/28/18 08:00 06/28/18 09:00 Temperature 98.2 F Pulse Rate 84 86 91 H Respiratory Rate 22 17 18 Blood Pressure 140/63 158/72 H 148/67 H Pulse Oximetry 98 97 81 L 06/28/18 10:00 06/28/18 11:00 06/28/18 12:00 Temperature 98.1 F Pulse Rate 102 H 104 H 102 H Respiratory Rate 20 20 21 Blood Pressure 118/59 L 141/62 H 156/74 H Pulse Oximetry 99 97 98 06/28/18 13:00 06/28/18 13:55 06/28/18 14:00 Temperature Pulse Rate 112 H 108 H 112 H Respiratory Rate 24 25 H 22 Blood Pressure 161/73 H 157/70 H Pulse Oximetry 97 99 06/28/18 15:00 06/28/18 16:00 06/28/18 18:00 Temperature 99.4 F Pulse Rate 100 H 97 H 97 H Respiratory Rate 22 20 Blood Pressure 138/62 163/70 H Pulse Oximetry 98 99 Intake & Output 06/27/18 06/28/18 06/28/18 18:59 06:59 18:59 Intake Total 900 / 900 100 / 100 650 / 650 Output Total 400 / 400 Balance 500 / 500 100 / 100 650 / 650 Weight 72.5 kg Intake: Oral 900 / 900 100 / 100 650 / 650 Output: Urine 400 / 400 Other: # Voids 4 # Incontinent Voids 3 4 Date of Last Bowel Movement 06/18/18 06/18/18 06/28/18 # Bowel Movements 1 GENERAL: MBMN Wf, weak SKIN: Warm and dry. HEAD: Normocephalic. EYES: No scleral icterus. No injection or drainage. NECK: Supple, trachea midline. No JVD or lymphadenopathy. CARDIOVASCULAR: Regular rate and rhythm without murmurs, gallops, or rubs. RESPIRATORY: Breath sounds equal bilaterally. No accessory muscle use. GASTROINTESTINAL: Abdomen soft, non-tender, nondistended. MUSCULOSKELETAL: No cyanosis, or edema. BACK: Nontender without obvious deformity. No CVA tenderness. - Urinary Catheter Management Indwelling Urethral Catheter Cath placed during this visit: yes, but has since been removed by the nurse Reason for continuing: Decision to DC catheter Insertion date: 06/23/18 Insertion time: 09:30 Removal date: 06/26/18 Removal time: 07:45 Female External Cath placed during this visit: no Assessment and Plan - Plan ASSESSMENT AND PLAN: 1. Right lung pneumonia, likely community acquired pneumonia. 2. Pleural effusion, 3. Recurrent UTI, 4. History of hysterectomy. 5. Bilat. PE 6. DVT 7.S/P cardiac arrest PLAN: Supplement 02 Cont Lovenox Cont Abx Monitor Pl effusion Sildenifil tid Encourage PO
[2018-06-29] MEDS: Oral Hygiene Kit OROPHARYNG SCH ×5 (00:33→23:39)
[2018-06-29] MEDS: HYDROmorphone PF Inj 2 MG/ML Vial IV.PUSH PRN (04:13)
[2018-06-29 08:13] LABS: Hematocrit 25.7 % (35.0-46.0); Hemoglobin 8.6 gm/dL (11.6-15.3); Mean Corpuscular HGB Conc 33.2 % (32.0-36.0); Mean Corpuscular Hemoglobin 29.1 pg (27.0-34.0); Mean Corpuscular Volume 87.5 fL (80.0-100.0); Mean Platelet Volume 7.1 fL (7.0-11.0); Platelet Count 187 th/mm3 (150-450); Red Blood Count 2.94 mil/mm3 (4.00-5.30); Red Cell Distribution Width 13.4 % (11.6-17.2); White Blood Count 5.9 th/mm3 (4.0-11.0)
[2018-06-29 08:19] LABS: Albumin 1.8 g/dL (3.4-5.0); Anion Gap 11 meq/L (5-15); Aspartate Aminotransferase 38 U/L (15-37); Blood Urea Nitrogen 24 mg/dL (7-18); Calcium 7.7 mg/dL (8.5-10.1); Carbon Dioxide 31.1 meq/L (21.0-32.0); Chloride 101 meq/L (98-107); Glomerular Filtration Rate 52 mL/min (>89); Glucose,Random 105 mg/dL (74-106); Potassium 3.3 meq/L (3.5-5.1); Sodium 143 meq/L (136-145)
[2018-06-29 08:23] LABS: Alanine Aminotransferase 78 U/L (10-53); Alkaline Phosphatase 117 U/L (45-117); Total Protein 5.6 g/dL (6.4-8.2)
[2018-06-29] MEDS: Senna/Docusate Sodium 8.6/50 MG Tablet PO SCH ×2 (08:30→20:10)
[2018-06-29] MEDS: Enoxaparin Inj 80 MG/0.8 ML Syringe SQ SCH (08:31)
[2018-06-29] MEDS: Famotidine 20 MG Tablet PO SCH ×2 (08:31→20:10)
[2018-06-29] MEDS: Chlorhexidine 0.12% Oral Kit 15 ML UDC OROPHARYNG SCH ×2 (08:32→19:35)
--- NOTE | 2018-06-29 12:35 | P.PNIM ---
Subjective Interval history: No new complaints. Physical Exam Vital signs: 06/29/18 11:09 06/29/18 12:00 Temperature 98.1 F Pulse Rate 105 H 100 H Respiratory Rate 18 22 Blood Pressure 114/57 L 116/58 L Pulse Oximetry 86 L 100 Narrative: GENERAL: NAD, AAOx3, appears painful CARDIOVASCULAR: Regular rate and rhythm RESPIRATORY: diminished bilateral lower lobes, poor inspiratory effort GASTROINTESTINAL: Abdomen soft, non-tender, nondistended. bowel sounds MUSCULOSKELETAL:Bilateral LE edema. NEURO: Alert & Oriented. Moves all ext x4 - Urinary Catheter Management Indwelling Urethral Catheter Cath placed during this visit: yes, but has since been removed by the nurse Reason for continuing: Decision to DC catheter Insertion date: 06/23/18 Insertion time: 09:30 Removal date: 06/26/18 Removal time: 07:45 Female External Cath placed during this visit: no Results - Labs CBC & Chem 7: 06/30/18 02:55 06/30/18 02:55 06/23/18 08:50 Blood - Peripheral Aerobic Blood Culture - Final No growth in 5 days 06/23/18 08:50 Blood - Peripheral Anaerobic Blood Culture - Final No growth in 5 days 06/23/18 09:10 Blood - Peripheral Aerobic Blood Culture - Final No growth in 5 days 06/23/18 09:10 Blood - Peripheral Anaerobic Blood Culture - Final No growth in 5 days - Imaging Abdomen X-Ray 06/28/18 00:00 CONCLUSION: Benign-appearing abdomen. Assessment and Plan - Assessment (1) Pulmonary emboli Code(s): I26.99 - Other pulmonary embolism without acute cor pulmonale Status : Acute Plan: Pulmonary Emboli, bilateral RLE DVT - The pt is a 62 y/o female with recurrent UTIs. Patient was treated for UTI 05/28/18 with Macrobid x 7 days then followed up with her PCP 06/03 and was treated with cipro 500mg BID for 10 days. Patient presented to ER on 06/10/18 for abdominal pain diagnosed with dysuria discharged with Percocet and Zofran. Patient returned to the ER on 06/18/18 with complaints of severe pain located in the right flank worse with taking a deep breath with associated N/V. Patient also endorses SOB, night sweats and decreased appetite for the past two weeks. - CT scan Abd/pelvis (06/18/18) 1. There is airspace consolidation in the right lower lobe with right pleural effusion. Changes at the left lung base may represent atelectasis or mild consolidation. 2. There is a 2.5 cm nodular structure in the left adnexa in the expected location of the left ovary. It is not certain if the left ovary remains present and patient reports prior surgical removal of the uterus. 3. Nonacute findings include small hiatal hernia, cholelithiasis, and moderate atherosclerotic disease. - CXR (06/19) --> There is bibasilar airspace consolidation with likely a small right pleural effusion. Given the distribution, aspiration should be a consideration. - On 06/21 pt complained of cramping and swelling in right leg. - LE US (06/21/18) --> acute right leg DVT - CTA Thorax (06/21/18) --> Extensive bilateral pulmonary emboli. Consolidation in both lung bases right greater than left. Small bilateral pleural effusions right greater than left. - Pt was started on therapeutic Lovenox. - Heme/Onc is following. - Pt with some constipation and nausea/vomiting. Laxatives PRN - KUB (06/28) --> NO acute findings. s/p PEA Arrest Cardiogenic Shock- resolved Cor Pulmonale- resolved Acute Right Ventricular failure- improving. - On 06/23/18 pt was found unresponsive in PEA arrest. CODE BLUE called. Pt was intubated and given Epi x 2 with return of spontaneous circulation. Pt arrested a second time in ICU requiring another round of epi and CPR with return of spontaneous circulation - Bedside critical care echo, severe acute RV failure with RVSP > 70 mmHg, + McConnel's Sign. obliterated LV cavity with bowing of the intraventricular septum into the LV. dilated IVC. severe TR. - Pt received emergent systemic TPA on 06/23/18 - Pt also received inhaled Flolan - Pt required pressors - Pt was able to be weaned off vasopressors and inotropes - Pt was started on Sildenafil 10mg po q8hr on 06/26/18. - This is to be titrated up ideally to be between 20q8 for therapeutic benefit. Pt may not need this long-term, but would prefer to keep it for 4-6 weeks if tolerated and then could consider weaning as an outpatient. - Sildenafil increased to 20mg TID (06/27) - Pt will need repeat 2d echo to evaluate for chronic RV changes in 4-6 weeks. - Pt is on therapeutic Lovenox - Rib Xrays were negative for rib fractures. Pts pain is likely related to chest wall bruising/strain secondary to the CPR Acute kidney injury- improving - secondary to shock - Labs are improving. Acute Liver Injury - Acute liver injury is likely secondary to a combination of shock liver and congestive hepatopathy - Labs are improving. - advance diet as tolerated. - daily cmp, mg, phos. Hyperglycemia of critical illness - SSI Right lung pneumonia - ?CAP vs pna secondary to splinting from PE pain - Pt was changed from PO Levaquin to IV Ceftriaxone 1gm iv q24h given through - Duonebs Q6H and PRN ?Left adnexal mass? - Pt had JONNY/BSO in 2007 but the op note suggests a 3-4cm left pelvic sidewall mass considered a "fibroid" - Transvag. u/s --> . Normal left ovary by ultrasound. Small cystic area region of the cervix measuring 4 mm, nonspecific - May need to discuss the case with Dr. Gould who did the pts original surgery (2) DVT (deep venous thrombosis) Code(s): I82.409 - Acute embolism and thrombosis of unspecified deep veins of unspecified lower extremity Status: Acute (3) Adnexal mass Code(s): N94.9 - Unspecified condition associated with female genital organs and menstrual cycle Status: Acute
[2018-06-29 12:44] LABS: Lymphocytes 16 % (9-44); Monocytes 3 % (0-8); Platelet Estimate Normal (Normal); Platelet Morphology Normal (Normal)
--- NOTE | 2018-06-29 19:46 | P.PNPL ---
Subjective Interval history: 62 YOWF with Recurrent UTI, Rt pn, pl effusion Legionella and Pneumococcal ag negative found to have Bilat PE and DVT On NC Weak, mild sob Up in chair Suctions herself Physical Exam Vital signs: Vital Signs 06/28/18 20:00 06/28/18 20:49 06/28/18 21:00 Temperature 98.5 F Pulse Rate 109 H 98 H 94 H Respiratory Rate 34 H 16 19 Blood Pressure 137/65 154/68 H Pulse Oximetry 97 100 100 06/28/18 21:48 06/28/18 22:00 06/28/18 23:00 Temperature Pulse Rate 105 H 101 H Respiratory Rate 20 21 22 Blood Pressure 137/61 135/60 Pulse Oximetry 97 98 06/29/18 00:00 06/29/18 01:00 06/29/18 02:00 Temperature 98.7 F Pulse Rate 101 H 103 H 96 H Respiratory Rate 23 24 23 Blood Pressure 142/61 H 135/61 138/63 Pulse Oximetry 98 99 99 06/29/18 03:00 06/29/18 04:00 06/29/18 05:00 Temperature 98.4 F Pulse Rate 99 H 119 H 91 H Respiratory Rate 23 50 H 23 Blood Pressure 137/62 122/60 151/65 H Pulse Oximetry 96 92 L 96 06/29/18 05:23 06/29/18 06:00 06/29/18 07:00 Temperature Pulse Rate 85 88 Respiratory Rate 18 22 23 Blood Pressure 132/59 L 138/61 Pulse Oximetry 97 97 06/29/18 07:50 06/29/18 08:00 06/29/18 09:00 Temperature Pulse Rate 96 H 92 H 109 H Respiratory Rate 18 16 21 Blood Pressure 135/63 114/56 L Pulse Oximetry 95 96 96 06/29/18 10:00 06/29/18 11:09 06/29/18 12:00 Temperature 98.1 F Pulse Rate 109 H 105 H 100 H Respiratory Rate 23 18 22 Blood Pressure 127/59 L 114/57 L 116/58 L Pulse Oximetry 98 86 L 100 06/29/18 13:00 06/29/18 14:00 06/29/18 15:00 Temperature Pulse Rate 96 H 100 H 90 Respiratory Rate 35 H 25 H 24 Blood Pressure 131/74 119/56 L 132/62 Pulse Oximetry 96 98 99 06/29/18 16:00 06/29/18 18:00 Temperature 98.9 F Pulse Rate 93 H 93 H Respiratory Rate 23 Blood Pressure 137/63 Pulse Oximetry 89 L Intake & Output 06/29/18 06/29/18 06/30/18 06:59 18:59 06:59 Intake Total 840 / 840 1300 / 1300 Output Total 550 / 550 800 / 800 Balance 290 / 290 500 / 500 Weight 73.4 kg Intake: Oral 840 / 840 1300 / 1300 Output: Urine 550 / 550 800 / 800 Other: # Incontinent Voids 2 Date of Last Bowel Movement 06/28/18 06/29/18 # Bowel Movements 1 1 GENERAL: MSMN WF,weak, mild sob SKIN: Warm and dry. HEAD: Normocephalic. EYES: No scleral icterus. No injection or drainage. NECK: Supple, trachea midline. No JVD or lymphadenopathy. CARDIOVASCULAR: Regular rate and rhythm without murmurs, gallops, or rubs. RESPIRATORY: Breath sounds equal bilaterally. No accessory muscle use. GASTROINTESTINAL: Abdomen soft, non-tender, nondistended. MUSCULOSKELETAL: No cyanosis, or edema. BACK: Nontender without obvious deformity. No CVA tenderness. - Urinary Catheter Management Indwelling Urethral Catheter Cath placed during this visit: yes, but has since been removed by the nurse Reason for continuing: Decision to DC catheter Insertion date: 06/23/18 Insertion time: 09:30 Removal date: 06/26/18 Removal time: 07:45 Female External Cath placed during this visit: no Assessment and Plan - Plan ASSESSMENT AND PLAN: 1. Right lung pneumonia, likely community acquired pneumonia. 2. Pleural effusion, 3. Recurrent UTI, 4. History of hysterectomy. 5. Bilat. PE 6. DVT 7.S/P cardiac arrest PLAN: Supplement 02 Cont Lovenox Cont Abx Monitor Pl effusion Sildenifil tid Encourage PO Suction prn Stable to tr to floor
[2018-06-30] MEDS: Oral Hygiene Kit OROPHARYNG SCH ×3 (03:37→16:03)
[2018-06-30 03:48] LABS: Baso % (Auto) 0.3 % (0.0-2.0); Eos % (Auto) 0.3 % (0.0-4.0); Hematocrit 26.2 % (35.0-46.0); Hemoglobin 8.7 gm/dL (11.6-15.3); Lymph # (Auto) 2.2 th/mm3 (1.0-4.8); Lymph % (Auto) 34.5 % (9.0-44.0); Mean Corpuscular HGB Conc 33.3 % (32.0-36.0); Mean Corpuscular Hemoglobin 28.8 pg (27.0-34.0); Mean Corpuscular Volume 86.4 fL (80.0-100.0); Mono # (Auto) 0.6 th/mm3 (0.0-0.9); Mono % (Auto) 8.8 % (0.0-8.0); Neut # (Auto) 3.6 th/mm3 (1.8-7.7); Neut % (Auto) 56.1 % (16.0-70.0); Platelet Count 214 th/mm3 (150-450); Red Blood Count 3.04 mil/mm3 (4.00-5.30); Red Cell Distribution Width 13.3 % (11.6-17.2); White Blood Count 6.4 th/mm3 (4.0-11.0)
[2018-06-30 04:12] LABS: Alanine Aminotransferase 66 U/L (10-53); Albumin 1.8 g/dL (3.4-5.0); Anion Gap 8 meq/L (5-15); Aspartate Aminotransferase 37 U/L (15-37); Blood Urea Nitrogen 24 mg/dL (7-18); Calcium 7.7 mg/dL (8.5-10.1); Carbon Dioxide 31.5 meq/L (21.0-32.0); Chloride 103 meq/L (98-107); Glomerular Filtration Rate 54 mL/min (>89); Glucose,Random 106 mg/dL (74-106); Potassium 3.8 meq/L (3.5-5.1); Sodium 142 meq/L (136-145)
[2018-06-30 04:14] LABS: Alkaline Phosphatase 109 U/L (45-117); Total Protein 5.7 g/dL (6.4-8.2)
[2018-06-30] MEDS: Chlorhexidine 0.12% Oral Kit 15 ML UDC OROPHARYNG SCH ×2 (07:56→21:11)
[2018-06-30] MEDS: Enoxaparin Inj 80 MG/0.8 ML Syringe SQ SCH (08:02)
[2018-06-30] MEDS: Senna/Docusate Sodium 8.6/50 MG Tablet PO SCH ×2 (08:04→20:56)
[2018-06-30] MEDS: Famotidine 20 MG Tablet PO SCH ×2 (08:07→20:56)
--- NOTE | 2018-06-30 16:33 | P.PNPL ---
Subjective Interval history: 62 YOWF with Recurrent UTI, Rt pn, pl effusion Legionella and Pneumococcal ag negative found to have Bilat PE and DVT On NC Weak, mild sob Up in chair Suctions herself transferred to Floor Ambulates Physical Exam Vital signs: Vital Signs 06/29/18 17:00 06/29/18 18:00 06/29/18 18:01 Temperature Pulse Rate 109 H 97 H 96 H Respiratory Rate 40 H 29 H 28 H Blood Pressure 176/75 H 128/63 Pulse Oximetry 96 94 L 93 L 06/29/18 19:00 06/29/18 20:00 06/29/18 20:06 Temperature 98.8 F Pulse Rate 95 H 97 H Respiratory Rate 31 H 28 H Blood Pressure 132/84 159/68 H Pulse Oximetry 94 L 99 100 06/29/18 20:17 06/29/18 21:00 06/29/18 22:00 Temperature Pulse Rate 99 H 97 H 93 H Respiratory Rate 24 18 25 H Blood Pressure 157/70 H Pulse Oximetry 99 99 06/29/18 22:01 06/29/18 23:00 06/30/18 00:00 Temperature 98.6 F Pulse Rate 93 H 96 H 92 H Respiratory Rate 24 24 23 Blood Pressure 149/68 H 141/62 H 151/68 H Pulse Oximetry 99 96 98 06/30/18 01:00 06/30/18 02:00 06/30/18 03:00 Temperature Pulse Rate 96 H 93 H 92 H Respiratory Rate 25 H 27 H 24 Blood Pressure 147/63 H 141/63 H 125/61 Pulse Oximetry 96 97 96 06/30/18 04:00 06/30/18 04:01 06/30/18 08:00 Temperature 98.4 F 98.0 F Pulse Rate 90 94 H 89 Respiratory Rate 24 32 H 22 Blood Pressure 155/67 H 142/64 H Pulse Oximetry 98 99 97 06/30/18 08:01 06/30/18 10:24 06/30/18 12:00 Temperature 98.1 F Pulse Rate 104 H 109 H Respiratory Rate 22 25 H Blood Pressure 123/84 Pulse Oximetry 98 98 06/30/18 13:31 06/30/18 16:00 Temperature 97.8 F Pulse Rate 101 H Respiratory Rate 20 18 Blood Pressure 139/63 Pulse Oximetry 97 Intake & Output 06/29/18 06/30/18 06/30/18 18:59 06:59 18:59 Intake Total 1300 / 1300 600 / 600 Output Total 800 / 800 Balance 500 / 500 600 / 600 Weight 73 kg Intake: Oral 1300 / 1300 600 / 600 Output: Urine 800 / 800 Other: # Voids 1 # Incontinent Voids 2 Date of Last Bowel Movement 06/29/18 06/29/18 06/29/18 # Bowel Movements 1 GENERAL: Elderly WF, weak, NAD SKIN: Warm and dry. HEAD: Normocephalic. EYES: No scleral icterus. No injection or drainage. NECK: Supple, trachea midline. No JVD or lymphadenopathy. CARDIOVASCULAR: Regular rate and rhythm without murmurs, gallops, or rubs. RESPIRATORY: Breath sounds equal bilaterally. No accessory muscle use. GASTROINTESTINAL: Abdomen soft, non-tender, nondistended. MUSCULOSKELETAL: No cyanosis, or edema. BACK: Nontender without obvious deformity. No CVA tenderness. - Urinary Catheter Management Indwelling Urethral Catheter Cath placed during this visit: yes, but has since been removed by the nurse Reason for continuing: Decision to DC catheter Insertion date: 06/23/18 Insertion time: 09:30 Removal date: 06/26/18 Removal time: 07:45 Female External Cath placed during this visit: no Assessment and Plan - Plan ASSESSMENT AND PLAN: 1. Right lung pneumonia, likely community acquired pneumonia. 2. Pleural effusion, 3. Recurrent UTI, 4. History of hysterectomy. 5. Bilat. PE 6. DVT 7.S/P cardiac arrest PLAN: Supplement 02 Cont Lovenox Cont Abx Monitor Pl effusion Sildenifil tid Encourage PO Suction prn Ambulate with PT
--- NOTE | 2018-06-30 17:59 | P.PNIM ---
Subjective Interval history: Pt c/o harsh paroxysmal coughing. Pt denies fever or chills. Physical Exam Vital signs: 06/30/18 16:00 Temperature 97.8 F Pulse Rate 101 H Respiratory Rate 18 Blood Pressure 139/63 Pulse Oximetry 97 Narrative: GENERAL: NAD, AAOx3, appears painful CARDIOVASCULAR: Regular rate and rhythm RESPIRATORY: clear x b/l GASTROINTESTINAL: Abdomen soft, non-tender, nondistended. bowel sounds MUSCULOSKELETAL:Bilateral LE edema. NEURO: Alert & Oriented. Moves all ext x4 - Urinary Catheter Management Indwelling Urethral Catheter Cath placed during this visit: yes, but has since been removed by the nurse Reason for continuing: Decision to DC catheter Insertion date: 06/23/18 Insertion time: 09:30 Removal date: 06/26/18 Removal time: 07:45 Female External Cath placed during this visit: no Results - Labs CBC & Chem 7: 06/30/18 02:55 06/30/18 02:55 Assessment and Plan - Assessment (1) Pulmonary emboli Code(s): I26.99 - Other pulmonary embolism without acute cor pulmonale Status : Acute Plan: Pulmonary Emboli, bilateral RLE DVT - The pt is a 62 y/o female with recurrent UTIs. Patient was treated for UTI 05/28/18 with Macrobid x 7 days then followed up with her PCP 06/03 and was treated with cipro 500mg BID for 10 days. Patient presented to ER on 06/10/18 for abdominal pain diagnosed with dysuria discharged with Percocet and Zofran. Patient returned to the ER on 06/18/18 with complaints of severe pain located in the right flank worse with taking a deep breath with associated N/V. Patient also endorses SOB, night sweats and decreased appetite for the past two weeks. - CT scan Abd/pelvis (06/18/18) 1. There is airspace consolidation in the right lower lobe with right pleural effusion. Changes at the left lung base may represent atelectasis or mild consolidation. 2. There is a 2.5 cm nodular structure in the left adnexa in the expected location of the left ovary. It is not certain if the left ovary remains present and patient reports prior surgical removal of the uterus. 3. Nonacute findings include small hiatal hernia, cholelithiasis, and moderate atherosclerotic disease. - CXR (06/19) --> There is bibasilar airspace consolidation with likely a small right pleural effusion. Given the distribution, aspiration should be a consideration. - On 06/21 pt complained of cramping and swelling in right leg. - LE US (06/21/18) --> acute right leg DVT - CTA Thorax (06/21/18) --> Extensive bilateral pulmonary emboli. Consolidation in both lung bases right greater than left. Small bilateral pleural effusions right greater than left. - Pt was started on therapeutic Lovenox. - Heme/Onc is following. - Pt with some constipation and nausea/vomiting. Laxatives PRN --> improved - KUB (06/28) --> NO acute findings. 06/30/18 - c/o continued coughing without fever or chills - start IV solumedrol - start tessalon prn - schedule duonebs/ prn duonebs - repeat CXR in AM - anticipate discharge to SNF in next 1-2 days, if coughing improves s/p PEA Arrest Cardiogenic Shock- resolved Cor Pulmonale- resolved Acute Right Ventricular failure- improving. - On 06/23/18 pt was found unresponsive in PEA arrest. CODE BLUE called. Pt was intubated and given Epi x 2 with return of spontaneous circulation. Pt arrested a second time in ICU requiring another round of epi and CPR with return of spontaneous circulation - Bedside critical care echo, severe acute RV failure with RVSP > 70 mmHg, + McConnel's Sign. obliterated LV cavity with bowing of the intraventricular septum into the LV. dilated IVC. severe TR. - Pt received emergent systemic TPA on 06/23/18 - Pt also received inhaled Flolan - Pt required pressors - Pt was able to be weaned off vasopressors and inotropes - Pt was started on Sildenafil 10mg po q8hr on 06/26/18. - This is to be titrated up ideally to be between 20q8 for therapeutic benefit. Pt may not need this long-term, but would prefer to keep it for 4-6 weeks if tolerated and then could consider weaning as an outpatient. - Sildenafil increased to 20mg TID (06/27) - Pt will need repeat 2d echo to evaluate for chronic RV changes in 4-6 weeks. - Pt is on therapeutic Lovenox - Rib Xrays were negative for rib fractures. Pts pain is likely related to chest wall bruising/strain secondary to the CPR - consider Cardiology consult prior to discharge. Acute kidney injury- improving - secondary to shock - Labs are improving. Acute Liver Injury - Acute liver injury is likely secondary to a combination of shock liver and congestive hepatopathy - Labs are improving. Hyperglycemia of critical illness - SSI Right lung pneumonia - ?CAP vs pna secondary to splinting from PE pain - Pt was changed from PO Levaquin to IV Ceftriaxone 1gm iv q24h given through - Duonebs Q6H and PRN ?Left adnexal mass? - Pt had JONNY/BSO in 2007 but the op note suggests a 3-4cm left pelvic sidewall mass considered a "fibroid" - Transvag. u/s --> . Normal left ovary by ultrasound. Small cystic area region of the cervix measuring 4 mm, nonspecific - Case d/w Dr. 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 Finding at left adnexal likely same fibroid (2) DVT (deep venous thrombosis) Code(s): I82.409 - Acute embolism and thrombosis of unspecified deep veins of unspecified lower extremity Status: Acute (3) Adnexal mass Code(s): N94.9 - Unspecified condition associated with female genital organs and menstrual cycle Status: Acute
[2018-06-30] MEDS: MethylPREDNISolone Sod Succinate Inj 125 MG/2 ML Vial IV.PUSH SCH (20:54)
[2018-06-30] MEDS: Temazepam 15 MG Capsule PO PRN (20:56)
[2018-07-01] MEDS: Oral Hygiene Kit OROPHARYNG SCH ×4 (01:05→15:55)
[2018-07-01] MEDS: Chlorhexidine 0.12% Oral Kit 15 ML UDC OROPHARYNG SCH ×2 (07:41→22:18)
[2018-07-01] MEDS: MethylPREDNISolone Sod Succinate Inj 125 MG/2 ML Vial IV.PUSH SCH ×2 (08:10→22:17)
[2018-07-01] MEDS: Famotidine 20 MG Tablet PO SCH ×2 (08:10→22:18)
[2018-07-01] MEDS: Senna/Docusate Sodium 8.6/50 MG Tablet PO SCH ×2 (08:11→22:17)
[2018-07-01] MEDS: Enoxaparin Inj 80 MG/0.8 ML Syringe SQ SCH (08:11)
[2018-07-01] MEDS ORDERED: Influenza (Quadrivalent) Vaccine 0.5 ML Syringe IM ONE (09:00)
--- NOTE | 2018-07-01 09:13 | XR ---
EXAM DATE: 07/01/2018 8:00 AM EDT AGE/SEX: 62 years / Female INDICATIONS: . Cough and congestion. CLINICAL DATA: This is the patient's subsequent encounter. Patient reports that signs and symptoms h ave been present for 1 week and indicates a pain score of 7/10. MEDICAL/SURGICAL HISTORY: . Urinary tract infection. . Hysterectomy. Bladder surgery COMPARISON: [facility], RIBS BILATERAL 3V W/O EXP CHEST, 06/27/2018. . FINDINGS: AP and lateral views of the chest demonstrate no significant change. Bibasilar pulmonary infiltrates with small bilateral pleural effusions are unchanged. Heart is normal in size. Bony structures are un remarkable. CONCLUSION: Unchanged bibasal infiltrates and small pleural effusions. Radiographic pattern would be consistent w ith pulmonary edema. Electronically signed by: Kai Haynes MD 07/01/2018 9:11 AM EDT
--- NOTE | 2018-07-01 10:53 | P.PNIM ---
Subjective Interval history: Pt c/o continued cough with occasional blood streaked sputum. Physical Exam Vital signs: 07/01/18 07:57 07/01/18 08:00 Temperature 98.2 F Pulse Rate 93 H 101 H Respiratory Rate 18 18 Blood Pressure 147/79 H Pulse Oximetry 94 L Narrative: GENERAL: NAD, AAOx3, appears painful CARDIOVASCULAR: Regular rate and rhythm RESPIRATORY: clear x b/l GASTROINTESTINAL: Abdomen soft, non-tender, nondistended. bowel sounds MUSCULOSKELETAL:Bilateral LE edema. NEURO: Alert & Oriented. Moves all ext x4 - Urinary Catheter Management Indwelling Urethral Catheter Cath placed during this visit: yes, but has since been removed by the nurse Reason for continuing: Decision to DC catheter Insertion date: 06/23/18 Insertion time: 09:30 Removal date: 06/26/18 Removal time: 07:45 Female External Cath placed during this visit: no Results - Labs CBC & Chem 7: 07/02/18 05:10 07/02/18 05:10 - Imaging Impressions Chest X-Ray 07/01/18 08:00 CONCLUSION: Unchanged bibasal infiltrates and small pleural effusions. Radiographic pattern would be consistent with pulmonary edema. Assessment and Plan - Assessment (1) Pulmonary emboli Code(s): I26.99 - Other pulmonary embolism without acute cor pulmonale Status : Acute Plan: Pulmonary Emboli, bilateral RLE DVT - The pt is a 62 y/o female with recurrent UTIs. Patient was treated for UTI 05/28/18 with Macrobid x 7 days then followed up with her PCP 06/03 and was treated with cipro 500mg BID for 10 days. Patient presented to ER on 06/10/18 for abdominal pain diagnosed with dysuria discharged with Percocet and Zofran. Patient returned to the ER on 06/18/18 with complaints of severe pain located in the right flank worse with taking a deep breath with associated N/V. Patient also endorses SOB, night sweats and decreased appetite for the past two weeks. - CT scan Abd/pelvis (06/18/18) 1. There is airspace consolidation in the right lower lobe with right pleural effusion. Changes at the left lung base may represent atelectasis or mild consolidation. 2. There is a 2.5 cm nodular structure in the left adnexa in the expected location of the left ovary. It is not certain if the left ovary remains present and patient reports prior surgical removal of the uterus. 3. Nonacute findings include small hiatal hernia, cholelithiasis, and moderate atherosclerotic disease. - CXR (06/19) --> There is bibasilar airspace consolidation with likely a small right pleural effusion. Given the distribution, aspiration should be a consideration. - On 06/21 pt complained of cramping and swelling in right leg. - LE US (06/21/18) --> acute right leg DVT - CTA Thorax (06/21/18) --> Extensive bilateral pulmonary emboli. Consolidation in both lung bases right greater than left. Small bilateral pleural effusions right greater than left. - Pt was started on therapeutic Lovenox. - Heme/Onc is following. - Pt with some constipation and nausea/vomiting. Laxatives PRN - KUB (06/28) --> NO acute findings. s/p PEA Arrest Cardiogenic Shock- resolved Cor Pulmonale- resolved Acute Right Ventricular failure- improving. - On 06/23/18 pt was found unresponsive in PEA arrest. CODE BLUE called. Pt was intubated and given Epi x 2 with return of spontaneous circulation. Pt arrested a second time in ICU requiring another round of epi and CPR with return of spontaneous circulation - Bedside critical care echo, severe acute RV failure with RVSP > 70 mmHg, + McConnel's Sign. obliterated LV cavity with bowing of the intraventricular septum into the LV. dilated IVC. severe TR. - Pt received emergent systemic TPA on 06/23/18 - Pt also received inhaled Flolan - Pt required pressors - Pt was able to be weaned off vasopressors and inotropes - Pt was started on Sildenafil 10mg po q8hr on 06/26/18. - This is to be titrated up ideally to be between 20q8 for therapeutic benefit. Pt may not need this long-term, but would prefer to keep it for 4-6 weeks if tolerated and then could consider weaning as an outpatient. - Sildenafil increased to 20mg TID (06/27) - Pt will need repeat 2d echo to evaluate for chronic RV changes in 4-6 weeks. - Pt is on therapeutic Lovenox - Rib Xrays were negative for rib fractures. Pts pain is likely related to chest wall bruising/strain secondary to the CPR - Repeat CXR (07/01) --> volume overload - lasix 40mg IV x once - repeat CXR (07/02) - obtain sputum studies: gram stain and C&S - Case d/w Dr. Finch, Hematology. Dr. Finch recommends continued use of lovenox x 2 additional weeks prior to conversion to novel anticoagulant - Case d/w Cardiology, Dr. Cooley. He will consult. - Anticipate d/c to SNF 07/03 or 07/04 Acute kidney injury- improving - secondary to shock - Labs are improving. Acute Liver Injury - Acute liver injury is likely secondary to a combination of shock liver and congestive hepatopathy - Labs are improving. - advance diet as tolerated. - daily cmp, mg, phos. Hyperglycemia of critical illness - SSI Right lung pneumonia - ?CAP vs pna secondary to splinting from PE pain - Pt was changed from PO Levaquin to IV Ceftriaxone 1gm iv q24h given through - Duonebs Q6H and PRN ?Left adnexal mass? - Pt had JONNY/BSO in 2007 but the op note suggests a 3-4cm left pelvic sidewall mass considered a "fibroid" - Transvag. u/s --> . Normal left ovary by ultrasound. Small cystic area region of the cervix measuring 4 mm, nonspecific - May need to discuss the case with Dr. Gould who did the pts original surgery (2) DVT (deep venous thrombosis) Code(s): I82.409 - Acute embolism and thrombosis of unspecified deep veins of unspecified lower extremity Status: Acute (3) Adnexal mass Code(s): N94.9 - Unspecified condition associated with female genital organs and menstrual cycle Status: Acute (1) Pulmonary emboli Qualifiers: Pulmonary embolism type: other Chronicity: acute Acute cor pulmonale presence: with acute cor pulmonale Qualified Code(s): I26.09 - Other pulmonary embolism with acute cor pulmonale (2) DVT (deep venous thrombosis) Qualifiers: DVT location: lower extremity Chronicity: acute Laterality: right
--- NOTE | 2018-07-01 11:02 | P.CONCA ---
History of Present Illness Service: cardiology Consult date: 07/01/18 Reason for Consult: PEA, bilateral P.E Primary Care Provider: Aj Mariee Chief Complaint: right sided abd pain History of Present Illness: 62 yo WF with no prior cardiac history who was admitted on 06/13/18 for R flank pain and SOB. She had been seen recently several times in the ED and by her PCP for recurrent UTI and had several rounds of antibiotic. During this admission she was found to have R lobe pneumonia, R leg DVT and bilateral pulmonary embolism; currently on lovenox. CT of abdomen/pelvis also showed moderate atherosclerotic disease. On 06/23 she developed PEA arrest x 2 requiring CPR and intubation; echo showed EF 65-70% with moderate-severely reduced RV systolic function, pulmonary arterial pressure of 69mmHg. She was eventually weaned off pressors and now takes sildenafil. Labs reveal Hgb declining, now 8.7 and transaminitis. creatinine is stable. She reports having a productive cough for several weeks which is somewhat improving; this morning however she did have hemoptysis which is new. CXR today shows stable findings of bilateral basilar infiltrates and small pleural effusions. She admits to SOB with exertion and mild dysphagia since intubation. Does have reproducible chest pain due to fractirued ribs during chest compressions but no chest pain with exertion. No palpitations, edema or orthopnea. She quit smoking 4 months ago and denies significant family history of CAD. Review of Systems All other systems reviewed negative except as stated in HPI PMFSH - History History Provided By: Medical Record - Medical History Medical History: Medical History (Last Reviewed 06/30/18 @ 08:45 by Ivelisse Hector) UTI (urinary tract infection) Herpes History of hysterectomy - Surgical History Surgical History: Surgical History (Last Reviewed 06/30/18 @ 08:45 by Ivelisse Hector) History of bladder surgery - Family History Family History: Family History (Last Updated 06/23/18 @ 10:25 by Jim Fry MD) Other Unknown family medical history - Tobacco History Second Hand Smoke Exposure: No Tobacco Use In Past 30 Days: No (quit 2012) Smoking Status: Former smoker Tobacco Type: Cigarettes - Alcohol History How Often Do You Have a Drink Containing Alcohol: Never - Substance Use History Substance History: No History of Abuse - Travel History Recent Travel in the [place] Within the Last 8 Weeks: No Recent Travel Out of the Country Within the Last 8 Weeks: No - Immunization History Tetanus Immunization: Unsure Hx Influenza Vaccine This Season: No Medications and Allergies Allergies Allergy/AdvReac Type Severity Reaction Status Date / Time acetaminophen AdvReac Mild NAUSEA Verified 06/10/18 13:34 hydrocodone AdvReac Mild NAUSEA Verified 06/10/18 13:34 Home Medications Medication Instructions Recorded Confirmed Type No Known Home Medications 06/18/18 06/18/18 History Active Medications: Active Medications Acetaminophen (Tylenol) 650 mg PO Q4H PRN PRN Reason: Temp > 100.4 Last Admin: 06/23/18 16:30 Dose: 650 mg Al Hydroxide/Mg Hydroxide (Milk Of Magnesia Liq) 30 ml PO Q12H PRN PRN Reason: Mild Constipation Last Admin: 06/22/18 16:37 Dose: 30 ml Albuterol (Duoneb Neb (Prn)) 1 ampul NEB Q2HR NEB PRN PRN Reason: WHEEZING Last Admin: 06/30/18 10:22 Dose: 1 ampul Albuterol (Duoneb Neb (Marquita)) 1 ampul NEB Q6HR WHILE AWAKE NEB [facility] [place] Last Admin: 07/01/18 07:55 Dose: 1 ampul Benzonatate (Tessalon Perles) 200 mg PO Q8H PRN PRN Reason: COUGH Chlorhexidine Gluconate (Peridex 0.12% Oral Kit) 15 ml OROPHARYNG BID@0800, 2000 [facility] [place] Last Admin: 07/01/18 07:41 Dose: Not Given Enoxaparin Sodium (Lovenox Inj) 75 mg SQ Q24H [facility] [place] Last Admin: 07/01/18 08:11 Dose: 75 mg Famotidine (Pepcid) 10 mg PO BID [facility] [place] Last Admin: 07/01/18 08:10 Dose: 10 mg Lactulose (Lactulose Liq) 30 ml PO DAILY [facility] [place] Last Admin: 07/01/18 08:11 Dose: Not Given Methylprednisolone Sodium Succinate (Solumedrol Inj) 60 mg IV.PUSH Q12H [facility] [place] Last Admin: 07/01/18 08:10 Dose: 60 mg Miscellaneous (Pill Splitter) 1 each OTHER UNSCH PRN PRN Reason: PILL SPLITTER Last Admin: 06/26/18 22:20 Dose: 1 each Miscellaneous Medication () 1 each OROPHARYNG 0000,0400,1200,1600 [facility] [place] Last Admin: 07/01/18 05:39 Dose: Not Given Ondansetron HCl (Zofran Odt) 4 mg PO Q6H PRN PRN Reason: NAUSEA Last Admin: 06/22/18 16:01 Dose: 4 mg Ondansetron HCl (Zofran Inj) 4 mg IV.PUSH Q6H PRN PRN Reason: NAUSEA OR VOMITING Oxycodone HCl (Roxicodone) 5 mg PO Q4H PRN PRN Reason: pain 1-5 Last Admin: 07/01/18 05:39 Dose: 5 mg Senna/Docusate Sodium (Maria Luisa-Colace) 1 tab PO BID [facility] [place] Last Admin: 07/01/18 08:11 Dose: Not Given Sennosides (Senokot) 17.2 mg PO DAILY [facility] [place] Last Admin: 07/01/18 08:12 Dose: Not Given Sildenafil Citrate (Revatio) 20 mg PO Q8HR [facility] [place] Last Admin: 07/01/18 05:39 Dose: 20 mg Sodium Chloride (Ns Flush) 2 ml IV.FLUSH BID [facility] [place] Last Admin: 07/01/18 08:11 Dose: 2 ml Sodium Chloride (Ns Flush) 2 ml IV.FLUSH PRN PRN PRN Reason: FLUSH AFTER USING IV ACCESS Last Admin: 06/28/18 08:37 Dose: 2 ml Temazepam (Restoril) 15 mg PO HS PRN PRN Reason: INSOMNIA Last Admin: 06/30/18 20:56 Dose: 15 mg Exam Vital signs: Vital Signs 06/30/18 12:00 06/30/18 13:31 06/30/18 16:00 Temperature 98.1 F 97.8 F Pulse Rate 109 H 101 H Respiratory Rate 25 H 20 18 Blood Pressure 123/84 139/63 Pulse Oximetry 98 97 06/30/18 19:56 06/30/18 19:57 06/30/18 20:00 Temperature 98.2 F Pulse Rate 91 H 101 H Respiratory Rate 18 18 Blood Pressure 132/60 Pulse Oximetry 96 98 06/30/18 23:27 07/01/18 02:24 07/01/18 04:00 Temperature 99.4 F 98.4 F Pulse Rate 91 H 77 Respiratory Rate 18 19 18 Blood Pressure 136/62 126/60 Pulse Oximetry 98 97 07/01/18 07:57 07/01/18 08:00 Temperature 98.2 F Pulse Rate 93 H 101 H Respiratory Rate 18 18 Blood Pressure 147/79 H Pulse Oximetry 94 L Intake & Output 06/30/18 07/01/18 07/01/18 18:59 06:59 18:59 Weight 72.9 kg Other: Date of Last Bowel Movement 06/29/18 Narrative: GENERAL: SKIN: Warm and dry. HEAD: Normocephalic. EYES: No scleral icterus. No injection or drainage. NECK: Supple, trachea midline. No JVD or lymphadenopathy. CARDIOVASCULAR: Regular rate and rhythm without murmurs, gallops, or rubs. RESPIRATORY: Breath sounds equal bilaterally. No accessory muscle use. GASTROINTESTINAL: Abdomen soft, non-tender, nondistended. MUSCULOSKELETAL: No cyanosis. Trace-1+ bilateral leg edema - Constitutional Comments: mild dysphonia Results 06/30/18 02:55 06/30/18 02:55 Cardiac Enzymes 06/30/18 Range/Units 02:55 AST 37 (15-37) U/L CBC 06/30/18 Range/Units 02:55 WBC 6.4 (4.0-11.0) th/mm3 RBC 3.04 L (4.00-5.30) mil/mm3 Hgb 8.7 L (11.6-15.3) gm/dL Hct 26.2 L (35.0-46.0) % Plt Count 214 (150-450) th/mm3 Neut # (Auto) 3.6 (1.8-7.7) th/mm3 Lymph # (Auto) 2.2 (1.0-4.8) th/mm3 [place] # (Auto) 0.6 (0.0-0.9) th/mm3 Eos # (Auto) 0.0 (0.0-0.4) th/mm3 Baso # (Auto) 0.0 (0.0-0.2) th/mm3 Comprehensive Metabolic Panel 06/30/18 Range/Units 02:55 Sodium 142 (136-145) meq/L Potassium 3.8 (3.5-5.1) meq/L Chloride 103 (98-107) meq/L Carbon Dioxide 31.5 (21.0-32.0) meq/L BUN 24 H (7-18) mg/dL Creatinine 1.04 H (0.50-1.00) mg/dL Calcium 7.7 L (8.5-10.1) mg/dL AST 37 (15-37) U/L ALT 66 H (10-53) U/L Alkaline Phosphatase 109 (45-117) U/L Total Protein 5.7 L (6.4-8.2) g/dL Albumin 1.8 L (3.4-5.0) g/dL Intake and Output 06/30/18 07/01/18 07/01/18 22:59 06:59 14:59 Other: Date of Last Bowel Movement 06/29/18 Weight 72.9 kg - Imaging and Cardiology Imaging: Impressions Chest X-Ray 07/01/18 08:00 CONCLUSION: Unchanged bibasal infiltrates and small pleural effusions. Radiographic pattern would be consistent with pulmonary edema. Assessment and Plan - Assessment (1) PEA (Pulseless electrical activity) Code(s): I46.9 - Cardiac arrest, cause unspecified Status: Acute (2) Pulmonary emboli Code(s): I26.99 - Other pulmonary embolism without acute cor pulmonale Status : Acute - Plan 62 yo WF with no prior cardiac history who was admitted on 06/13/18 for R flank pain and SOB. She had been seen recently several times in the ED and by her PCP for recurrent UTI and had several rounds of antibiotic. During this admission she was found to have R lobe pneumonia, R leg DVT and bilateral pulmonary embolism; currently on lovenox. CT of abdomen/pelvis also showed moderate atherosclerotic disease. On 06/23 she developed PEA arrest x 2 requiring CPR and intubation; echo showed EF 65-70% with moderate-severely reduced RV systolic function, pulmonary arterial pressure of 69mmHg. She was eventually weaned off pressors and now takes sildenafil. Labs reveal Hgb declining, now 8.7 and transaminitis. creatinine is stable. She reports having a productive cough for several weeks which is somewhat improving; this morning however she did have hemoptysis which is new. CXR today shows stable findings of bilateral basilar infiltrates and small pleural effusions. She admits to SOB with exertion and mild dysphagia since intubation, also with reproducible chest pain due to rib fractures from chest compressions but no chest pain on exertion. Denies palpitations, edema or orthopnea. She quit smoking 4 months ago and denies significant family history of CAD. - Attending Attestation agree with above PEA x 2- likely secondary to pulmonary embolism. Normal left ventricular systolic function without regional wall motion abnormalities. No need for ischemic workup at this time. May consider on elective basis upon full recovery as outpatient. pulmonary hypertension- +SOB with exertion. continue pulmonary vasodilator therapy as tolerated, more likely due to PE than intrinsic pulmonary disease DVT/P.E - cont lovenox. may benefit from hypercoagulable workup prior to initiation of fdc oral anticoagulation which will effect results. No obvious trigger for DVT. no malignancy. no hypercoaguable state. lifelong anticoagulation pneumonia- pulmonology following DC Planning will sign off. no further cardiac workup necessary at this time. Call with further questions
--- NOTE | 2018-07-01 11:35 | P.PNPL ---
Subjective Interval history: 62 YOWF with Recurrent UTI, Rt pn, pl effusion Legionella and Pneumococcal ag negative found to have Bilat PE and DVT On NC Weak, mild sob Up in chair Had blood tinged sp Physical Exam Vital signs: Vital Signs 06/30/18 12:00 06/30/18 13:31 06/30/18 16:00 Temperature 98.1 F 97.8 F Pulse Rate 109 H 101 H Respiratory Rate 25 H 20 18 Blood Pressure 123/84 139/63 Pulse Oximetry 98 97 06/30/18 19:56 06/30/18 19:57 06/30/18 20:00 Temperature 98.2 F Pulse Rate 91 H 101 H Respiratory Rate 18 18 Blood Pressure 132/60 Pulse Oximetry 96 98 06/30/18 23:27 07/01/18 02:24 07/01/18 04:00 Temperature 99.4 F 98.4 F Pulse Rate 91 H 77 Respiratory Rate 18 19 18 Blood Pressure 136/62 126/60 Pulse Oximetry 98 97 07/01/18 07:57 07/01/18 08:00 Temperature 98.2 F Pulse Rate 93 H 101 H Respiratory Rate 18 18 Blood Pressure 147/79 H Pulse Oximetry 94 L Intake & Output 06/30/18 07/01/18 07/01/18 18:59 06:59 18:59 Weight 72.9 kg Other: Date of Last Bowel Movement 06/29/18 GENERAL: MBMN Weak, NAD SKIN: Warm and dry. HEAD: Normocephalic. EYES: No scleral icterus. No injection or drainage. NECK: Supple, trachea midline. No JVD or lymphadenopathy. CARDIOVASCULAR: Regular rate and rhythm without murmurs, gallops, or rubs. RESPIRATORY: Breath sounds equal bilaterally. No accessory muscle use. GASTROINTESTINAL: Abdomen soft, non-tender, nondistended. MUSCULOSKELETAL: No cyanosis, or edema. BACK: Nontender without obvious deformity. No CVA tenderness. - Urinary Catheter Management Indwelling Urethral Catheter Cath placed during this visit: yes, but has since been removed by the nurse Reason for continuing: Decision to DC catheter Insertion date: 06/23/18 Insertion time: 09:30 Removal date: 06/26/18 Removal time: 07:45 Female External Cath placed during this visit: no Assessment and Plan - Plan ASSESSMENT AND PLAN: 1. Right lung pneumonia, likely community acquired pneumonia. 2. Pleural effusion, 3. Recurrent UTI, 4. History of hysterectomy. 5. Bilat. PE 6. DVT 7.S/P cardiac arrest PLAN: Supplement 02 Cont Lovenox Cont Abx Sildenifil tid Encourage PO Suction prn Ambulate with PT DW , dc plans for rehab with Lovenox
[2018-07-01] MEDS: Benzonatate 100 MG Capsule PO PRN (19:13)
--- NOTE | 2018-07-01 19:24 | P.PNONC ---
Subjective Interval history: Sister at bedside. Patient had severe coughing spell. She is struggling to bring up the sputum. She has significant amount of pain. Reported some blood-tinged sputum with severe coughing. Denies any overt bleeding. Objective Vital Signs/Intake & Output: Vital Signs 06/30/18 19:56 06/30/18 19:57 06/30/18 20:00 Temperature 98.2 F Pulse Rate 91 H 101 H Respiratory Rate 18 18 Blood Pressure 132/60 Pulse Oximetry 96 98 06/30/18 23:27 07/01/18 02:24 07/01/18 04:00 Temperature 99.4 F 98.4 F Pulse Rate 91 H 77 Respiratory Rate 18 19 18 Blood Pressure 136/62 126/60 Pulse Oximetry 98 97 07/01/18 07:57 07/01/18 08:00 07/01/18 12:00 Temperature 98.2 F 98.3 F Pulse Rate 93 H 101 H 105 H Respiratory Rate 18 18 18 Blood Pressure 147/79 H 125/58 L Pulse Oximetry 94 L 98 07/01/18 12:17 07/01/18 16:00 Temperature 98.4 F Pulse Rate 71 104 H Respiratory Rate 18 18 Blood Pressure 141/67 H Pulse Oximetry 94 L Intake & Output 07/01/18 07/01/18 07/02/18 06:59 18:59 06:59 Intake Total 480 / 480 Balance 480 / 480 Weight 72.9 kg Intake: Oral 480 / 480 Other: # Voids 4 # Bowel Movements 1 Result Diagrams: 06/30/18 02:55 06/30/18 02:55 Laboratory Results: Laboratory Results - last 24 hr 07/01/18 07:42 POC Glucose 126 H Imaging Studies: Impressions Chest X-Ray 07/01/18 08:00 CONCLUSION: Unchanged bibasal infiltrates and small pleural effusions. Radiographic pattern would be consistent with pulmonary edema. Medications: Active Medications Generic Name Dose Route Start Last Admin Trade Name Freq PRN Reason Stop Dose Admin Acetaminophen 650 mg 06/18/18 15:44 06/23/18 16:30 Tylenol PO 650 mg Q4H PRN Administration Temp > 100.4 Al Hydroxide/Mg Hydroxide 30 ml 06/18/18 15:44 06/22/18 16:37 Milk Of Magnesia Liq PO 30 ml Q12H PRN Administration Mild Constipation Albuterol 1 ampul 06/18/18 15:58 06/30/18 10:22 Duoneb Neb (Prn) NEB 1 ampul Q2HR NEB PRN Administration WHEEZING Albuterol 1 ampul 06/30/18 20:00 07/01/18 12:16 Duoneb Neb (Marquita) NEB 1 ampul Q6HR WHILE AWAKE NEB MARQUITA Administration Benzonatate 200 mg 06/30/18 18:03 07/01/18 19:13 Tessalon Perles PO 200 mg Q8H PRN Administration COUGH Chlorhexidine Gluconate 15 ml 06/23/18 20:00 07/01/18 07:41 Peridex 0.12% Oral Kit OROPHARYNG Not Given BID@0800,2000 [facility] Enoxaparin Sodium 75 mg 06/26/18 09:00 07/01/18 08:11 Lovenox Inj SQ 75 mg Q24H MARQUITA Administration Famotidine 10 mg 06/23/18 21:00 07/01/18 08:10 Pepcid PO 10 mg BID MARQUITA Administration Lactulose 30 ml 06/28/18 12:00 07/01/18 08:11 Lactulose Liq PO Not Given DAILY [facility] Methylprednisolone Sodium Succinate 60 mg 06/30/18 20:00 07/01/18 08:10 Solumedrol Inj IV.PUSH 60 mg Q12H MARQUITA Administration Miscellaneous 1 each 06/26/18 22:05 06/26/18 22:20 Pill Splitter OTHER 1 each UNSCH PRN Administration PILL SPLITTER Miscellaneous Medication 1 each 06/23/18 12:00 07/01/18 15:55 OROPHARYNG Not Given 0000,0400,1200,1600 [facility] Ondansetron HCl 4 mg 06/18/18 15:51 06/22/18 16:01 Zofran Odt PO 4 mg Q6H PRN Administration NAUSEA Oxycodone HCl 5 mg 06/25/18 13:10 07/01/18 19:13 Roxicodone PO 5 mg Q4H PRN Administration pain 1-5 Senna/Docusate Sodium 1 tab 06/18/18 21:00 07/01/18 08:11 Maria Luisa-Colace PO Not Given BID [facility] Sennosides 17.2 mg 06/28/18 12:00 07/01/18 08:12 Senokot PO Not Given DAILY MARQUITA Sildenafil Citrate 20 mg 06/27/18 16:38 07/01/18 13:18 Revatio PO 20 mg Q8HR MARQUITA Administration Sodium Chloride 2 ml 06/23/18 21:00 07/01/18 08:11 Ns Flush IV.FLUSH 2 ml BID MARQUITA Administration Sodium Chloride 2 ml 06/23/18 09:22 06/28/18 08:37 Ns Flush IV.FLUSH 2 ml PRN PRN Administration FLUSH AFTER USING IV ACCESS Temazepam 15 mg 06/30/18 21:00 06/30/18 20:56 Restoril PO 15 mg HS PRN Administration INSOMNIA Objective Remarks: GENERAL: Anxious appearing female patient, in some moderate distress during the coughing spells. SKIN: Warm and dry. HEAD: Normocephalic. EYES: No scleral icterus. No injection or drainage. NECK: Supple, trachea midline. CARDIOVASCULAR: Regular rate and rhythm without murmurs. RESPIRATORY: Breath sounds equal bilaterally. Occasional wheeze. Upper airway phlegm. GASTROINTESTINAL: Abdomen soft, non-tender, nondistended. EXTREMITIES: No cyanosis, or edema. MUSCULOSKELETAL: Adequate muscle tone. NEUROLOGICAL: No obvious focal deficit. Awake, alert, and oriented x3. PSYCHIATRIC: Appropriate mood and affect; insight and judgment normal. Assessment/Plan (1) DVT (deep venous thrombosis) Code(s): I82.409 - Acute embolism and thrombosis of unspecified deep veins of unspecified lower extremity Status: Acute (2) Pulmonary emboli Code(s): I26.99 - Other pulmonary embolism without acute cor pulmonale Status : Acute - Plan 62-year-old female admitted with shortness of breath found to have a pulmonary embolism. She was started on anticoagulation but had acute worsening pulmonary embolism and went into PEA twice, treated with thrombolysis and was successfully resuscitated. 1. Pulmonary embolism, status post PEA x2 with successful resuscitation. Contusion of the chest post compression. Rib x-ray were negative for fractures. Symptoms are slow to improve. Still significant pain with coughing. With a lengthy discussion about the risk and benefit of anticoagulant therapy with low molecular weight heparin versus a new oral anticoagulant. I recommend continuing the low molecular weight heparin for another week until more stable, rounding up to the nearest syringe size. She has a significant amount of coughing, with fits of continuous coughing producing blood-tinged sputum. We discussed the long bioavailability new oral anticoagulant and the lack of availability of the antidote. I anticipate continued improvement clinically and switching to a newer oral anticoagulant in a week's time. Case was discussed with Dr. Arriaga who plans to follow her at the assisted facility where the conversion could be facilitated. We discussed the ideal duration of anticoagulant therapy. I recommend continued anticoagulant therapy for at least 6 months time. There is concern for precipitated clot in light of her vaginal estrogen use along with smoking. Thrombophilia is considered. Thrombophilia testing is deferred as it is unlikely to change our current management. 2. Monitor for bleeding. Monitor CBC, coags. 3. Continue treatment for pneumonia. (1) DVT (deep venous thrombosis) Qualifiers: DVT location: lower extremity Chronicity: acute Laterality: right (2) Pulmonary emboli Qualifiers: Pulmonary embolism type: other Chronicity: acute Acute cor pulmonale presence: with acute cor pulmonale Qualified Code(s): I26.09 - Other pulmonary embolism with acute cor pulmonale
[2018-07-01] MEDS: Temazepam 15 MG Capsule PO PRN (22:17)
[2018-07-02] MEDS: Oral Hygiene Kit OROPHARYNG SCH ×3 (05:40→15:04)
[2018-07-02] MEDS: Benzonatate 100 MG Capsule PO PRN (05:41)
[2018-07-02 06:23] LABS: Baso % (Auto) 0.2 % (0.0-2.0); Eos % (Auto) 0.1 % (0.0-4.0); Hematocrit 27.2 % (35.0-46.0); Hemoglobin 9.1 gm/dL (11.6-15.3); Lymph # (Auto) 2.2 th/mm3 (1.0-4.8); Lymph % (Auto) 33.9 % (9.0-44.0); Mean Corpuscular HGB Conc 33.6 % (32.0-36.0); Mean Corpuscular Hemoglobin 28.7 pg (27.0-34.0); Mean Corpuscular Volume 85.5 fL (80.0-100.0); Mean Platelet Volume 7.1 fL (7.0-11.0); Mono # (Auto) 0.3 th/mm3 (0.0-0.9); Mono % (Auto) 4.8 % (0.0-8.0); Platelet Count 260 th/mm3 (150-450); Red Blood Count 3.18 mil/mm3 (4.00-5.30); Red Cell Distribution Width 13.4 % (11.6-17.2); White Blood Count 6.5 th/mm3 (4.0-11.0)
[2018-07-02] MEDS: Chlorhexidine 0.12% Oral Kit 15 ML UDC OROPHARYNG SCH (07:03)
[2018-07-02 07:10] LABS: Calcium 8.3 mg/dL (8.5-10.1); Carbon Dioxide 31.2 meq/L (21.0-32.0); Magnesium 1.7 mg/dL (1.5-2.5)
[2018-07-02] MEDS: Senna/Docusate Sodium 8.6/50 MG Tablet PO SCH (08:32)
[2018-07-02] MEDS: MethylPREDNISolone Sod Succinate Inj 125 MG/2 ML Vial IV.PUSH SCH (08:32)
[2018-07-02] MEDS: Famotidine 20 MG Tablet PO SCH (08:33)
--- NOTE | 2018-07-02 08:47 | XR ---
EXAM DATE: 07/02/2018 6:00 AM EDT AGE/SEX: 62 years / Female INDICATIONS: . Cough. CLINICAL DATA: This is the patient's subsequent encounter. Patient reports that signs and symptoms h ave been present for 1 week and indicates a pain score of 7/10. MEDICAL/SURGICAL HISTORY: . Urinary tract infection. . Hysterectomy. Bladder surgery COMPARISON: July 01, 2018. FINDINGS: AP lateral views of the chest demonstrate persistent bilateral small pleural effusions with fluid see n within the left major fissure and hazy bilateral airspace opacities consistent with overlying atele ctasis/consolidation. Heart size is normal. Pulmonary vasculature is normal. Osseous structures are i ntact.. CONCLUSION: Bilateral stable small pleural effusions with overlying airspace atelectasis/consolidation. Electronically signed by: Iesha Quintana MD 07/02/2018 8:46 AM EDT
[2018-07-02] MEDS ORDERED: Enoxaparin Inj 80 MG/0.8 ML Syringe SQ SCH (09:00)
[2018-07-02 12:49] VITALS: TEMP 98.1
--- NOTE | 2018-07-02 16:03 | P.DS ---
Date of admission: 06/18/18 16:01 Primary care physician: Aj Mariee Attending physician on discharge: Joshua Arriaga Anticipated date of discharge: 07/02/18 Brief History from admission: This is a 62 year old female patient with a past medical history which includes recurrent UTIs. Patient was treated for UTI 05/28/18 with Macrobid x 7 days then followed up with her PCP 06/03 and was treated with cipro 500mg BID for 10 days. Patient presented to ER on 06/10/18 for abdominal pain diagnosed with dysuria discharged with Percocet and Zofran. Patient returned to the ER today with complaints of severe pain located in the right flank worse with taking a deep breath with associated N/V. Patient also endorses SOB, night sweats and decreased appetite for the past two weeks. CT scan completed and reveals: 1. There is airspace consolidation in the right lower lobe with right pleural effusion. This could represent an infectious process in the appropriate clinical setting. Aspiration is another consideration. Changes at the left lung base may represent atelectasis or mild consolidation. 2. There is a 2.5 cm nodular structure in the left adnexa in the expected location of the left ovary. It is not certain if the left ovary remains present and patient reports prior surgical removal of the uterus. Therefore, on an outpatient elective basis, consider further characterization with transabdominal and transvaginal pelvis ultrasound. 3. Nonacute findings include small hiatal hernia, cholelithiasis, and moderate atherosclerotic disease. Patient denies fevers or chills. 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 [employer] denies ETOH use former smoker quit 4 years ago, prior to that smoked 1 PPD since age 20 denies illicit drug use FMH: Mother at 52 secondary to lung cancer Father secondary to suicide also had colon cancer DS: Diagnosis - Discharge Diagnosis (1) Pulmonary emboli Status: Acute (2) DVT (deep venous thrombosis) Status: Acute (3) Adnexal mass Status: Acute DS: Medications - Discharge Medications Prescriptions: duloxetine [Cymbalta] 30 mg PO DAILY 30 Days #30 cap enoxaparin [Lovenox] 80 mg SUBCUT DAILY 7 Days #5.6 ml oxycodone 5 mg PO Q4H PRN #90 tab PRN Reason: Pain DS: Summary Hospital Course: (1) Pulmonary emboli Code(s): I26.99 - Other pulmonary embolism without acute cor pulmonale Status : Acute Plan: Pulmonary Emboli, bilateral RLE DVT - The pt is a 62 y/o female with recurrent UTIs. Patient was treated for UTI 05/28/18 with Macrobid x 7 days then followed up with her PCP 06/03 and was treated with cipro 500mg BID for 10 days. Patient presented to ER on 06/10/18 for abdominal pain diagnosed with dysuria discharged with Percocet and Zofran. Patient returned to the ER on 06/18/18 with complaints of severe pain located in the right flank worse with taking a deep breath with associated N/V. Patient also endorses SOB, night sweats and decreased appetite for the past two weeks. - CT scan Abd/pelvis (06/18/18) 1. There is airspace consolidation in the right lower lobe with right pleural effusion. Changes at the left lung base may represent atelectasis or mild consolidation. 2. There is a 2.5 cm nodular structure in the left adnexa in the expected location of the left ovary. It is not certain if the left ovary remains present and patient reports prior surgical removal of the uterus. 3. Nonacute findings include small hiatal hernia, cholelithiasis, and moderate atherosclerotic disease. - CXR (06/19) --> There is bibasilar airspace consolidation with likely a small right pleural effusion. Given the distribution, aspiration should be a consideration. - On 06/21 pt complained of cramping and swelling in right leg. - LE US (06/21/18) --> acute right leg DVT - CTA Thorax (06/21/18) --> Extensive bilateral pulmonary emboli. Consolidation in both lung bases right greater than left. Small bilateral pleural effusions right greater than left. - Pt was started on therapeutic Lovenox. - Case d/w Hematology (07/01/18) --> continue lovenox x 1 week. Will then change to xarelto s/p PEA Arrest Cardiogenic Shock- resolved Cor Pulmonale- resolved Acute Right Ventricular failure- improving. - On 06/23/18 pt was found unresponsive in PEA arrest. CODE BLUE called. Pt was intubated and given Epi x 2 with return of spontaneous circulation. Pt arrested a second time in ICU requiring another round of epi and CPR with return of spontaneous circulation - Bedside critical care echo, severe acute RV failure with RVSP > 70 mmHg, + McConnel's Sign. obliterated LV cavity with bowing of the intraventricular septum into the LV. dilated IVC. severe TR. - Pt received emergent systemic TPA on 06/23/18 - Pt also received inhaled Flolan - Pt required pressors - Pt was able to be weaned off vasopressors and inotropes - Pt was started on Sildenafil 10mg po q8hr on 06/26/18. - This is to be titrated up ideally to be between 20q8 for therapeutic benefit. Pt may not need this long-term, but would prefer to keep it for 4-6 weeks if tolerated and then could consider weaning as an outpatient. - Sildenafil increased to 20mg TID (06/27) - Pt will need repeat 2d echo to evaluate for chronic RV changes in 4-6 weeks. - Pt is on therapeutic Lovenox - Rib Xrays were negative for rib fractures. Pts pain is likely related to chest wall bruising/strain secondary to the CPR - Repeat CXR (07/01) --> volume overload - lasix 40mg IV x once - repeat CXR (07/02) --> improving - obtain sputum studies: heavy growth of respiratory loretta - Case d/w Cardiology, Dr. Cooley. No further cardiac w/u warranted - D/C to SNF today - see discharge orders Acute kidney injury- improving - secondary to shock - Labs are improving. Acute Liver Injury - resolving - Acute liver injury is likely secondary to a combination of shock liver and congestive hepatopathy Hyperglycemia of critical illness - SSI Right lung pneumonia - ?CAP vs pna secondary to splinting from PE pain - Pt was changed from PO Levaquin to IV Ceftriaxone 1gm iv q24h given through - Duonebs Q6H and PRN - complete course of PO prednisone Left adnexal mass - Pt had JONNY/BSO in 2007 but the op note suggests a 3-4cm left pelvic sidewall mass considered a "fibroid" - Transvag. u/s --> . Normal left ovary by ultrasound. Small cystic area region of the cervix measuring 4 mm, nonspecific - case reviewed with Dr. Gould who performed JONNY in 2007. mass seen on CT felt to correspond to fibroid noted in 2007 & no lymph node enlargement. no further w/u warranted at this time. Situational Depression - start Cymbalta [id number] Prescription Drug Monitoring Database has been queried and verified prior to prescribing the controlled substance. Acute pain exception. This patient has normal, predicted, physiological, and time limited response to an adverse mechanical stimulus associated with surgery, trauma, or acute illness as described in my notes. There is a lack of alternative treatment options other than to include the prescribed narcotic treatment for this condition. - Time Spent with Patient Total time spent providing and/or coordinating discharge services: Greater than 30 minutes - Quality: VTE Deep Vein Thrombosis/Pulmonary Embolism Present on Admission: No Exam Vital signs: Vital Signs 07/01/18 19:24 07/01/18 20:00 07/02/18 00:00 Temperature 98.3 F 98.2 F Pulse Rate 96 H 95 H 93 H Respiratory Rate 20 17 18 Blood Pressure 141/62 H 139/64 Pulse Oximetry 98 99 99 07/02/18 01:25 07/02/18 04:00 07/02/18 08:00 Temperature 98.2 F 97.8 F Pulse Rate 82 78 97 H Respiratory Rate 17 23 Blood Pressure 138/62 146/72 H Pulse Oximetry 99 99 07/02/18 08:49 07/02/18 08:52 07/02/18 12:00 Temperature 98.1 F Pulse Rate 91 H 112 H Respiratory Rate 18 23 Blood Pressure 124/74 Pulse Oximetry 98 96 07/02/18 12:30 Temperature Pulse Rate 95 H Respiratory Rate 18 Blood Pressure Pulse Oximetry Intake & Output 07/01/18 07/02/18 07/02/18 18:59 06:59 18:59 Intake Total 480 / 480 780 / 780 Output Total 4 / 4 Balance 480 / 480 776 / 776 Intake: Oral 480 / 480 780 / 780 Output: Urine 4 / 4 Other: # Voids 4 Date of Last Bowel Movement 07/02/18 # Bowel Movements 1 1 Results Procedures completed during hospitalization: see hospital course Labs on day of discharge: Labs from last 24 hours 07/02/18 07/02/18 05:10 05:10 WBC 6.5 RBC 3.18 L Hgb 9.1 L Hct 27.2 L MCV 85.5 MCH 28.7 MCHC 33.6 RDW 13.4 Plt Count 260 MPV 7.1 Neut % (Auto) 61.0 Lymph % (Auto) 33.9 Ashley % (Auto) 4.8 Eos % (Auto) 0.1 Baso % (Auto) 0.2 Neut # (Auto) 4.0 Lymph # (Auto) 2.2 Ashley # (Auto) 0.3 Eos # (Auto) 0.0 Baso # (Auto) 0.0 WBC Differential . Differential Comment Auto diff final Sodium 140 Potassium 4.0 Chloride 101 Carbon Dioxide 31.2 Anion Gap 8 BUN 36 H Creatinine 1.12 H Estimated GFR 49 L Random Glucose 138 H Calcium 8.3 L Magnesium 1.7 Preliminary micro results at discharge 07/01/18 10:40 Sputum Culture - Preliminary Sputum - Expectorated Sputum Heavy growth normal respiratory loretta at 24 hours - Impressions ITS Impressions Abdomen/Pelvis CT 06/18/18 12:21 CONCLUSION: 1. There is airspace consolidation in the right lower lobe with right pleural effusion. This could represent an infectious process in the appropriate clinical setting. Aspiration is another consideration. Changes at the left lung base may represent atelectasis or mild consolidation. 2. There is a 2.5 cm nodular structure in the left adnexa in the expected location of the left ovary. It is not certain if the left ovary remains present and patient reports prior surgical removal of the uterus. Therefore, on an outpatient elective basis, consider further characterization with transabdominal and transvaginal pelvis ultrasound. 3. Nonacute findings include small hiatal hernia, cholelithiasis, and moderate atherosclerotic disease. Chest CTA 06/21/18 00:00 CONCLUSION: 1. Extensive bilateral pulmonary emboli. 2. Consolidation in both lung bases right greater than left. 3. Small bilateral pleural effusions right greater than left. Venous Doppler Study 06/21/18 00:00 CONCLUSION: 1. Positive deep venous thrombosis. Abdomen/Pelvis/Transvag US 06/22/18 00:00 CONCLUSION: 1. Normal left ovary by ultrasound. 2. Small cystic area region of the cervix measuring 4 mm, nonspecific Head CT 06/25/18 00:00 CONCLUSION: 1. Unremarkable CT scan of the brain for patient's age. . Ribs X-Ray 06/27/18 00:00 CONCLUSION: No definite rib fractures are demonstrated. Abdomen X-Ray 06/28/18 00:00 CONCLUSION: Benign-appearing abdomen. Chest X-Ray 07/02/18 06:00 CONCLUSION: Bilateral stable small pleural effusions with overlying airspace atelectasis/ consolidation. Discharge Plan - Discharge Disposition Patient Disposition: 03 Discharge to SNF - Discharge Condition Condition: Stable - Discharge Order Discharge Orders: Discharge Order (Routine); Ordered 07/02/18 Ordered By: Tomasa Armstrong - Discharge Details Anticipated Discharge Date: 07/02/18 - Physicians Team Attending Provider: Joshua Arriaga Other Providers: Jesus Barreto MD ; Rox Finch MD ; Jim Fry MD ; Ra Quezada MD ; Jeremías Cooley MD ; [facility]
[2018-07-02] MEDS ORDERED: Sod Phosphate/Sod Biphosphate (Adult) Enema 133 ML Bottle RECTAL ONE (16:52)
[2018-07-02 17:06] VITALS: BP 144/68
[2018-07-02 19:17] VITALS: O2SAT 100
[2018-07-02 19:18] VITALS: PULSE 97; RESP 16
== END 2018-07-02 19:45 ==
LOC: NEDA 09:18 → NEPE 09:18 → N04 17:00 → HIMC 06-23 08:25 → N04 06-30 14:41
PROVIDERS: ADMIT Hospitalist; ATTEND Hospitalist